=== PATIENT | female | born 1955 | race Caucasian/White ===

== ENCOUNTER 2017-02-28 13:34 | Inpatient (IN) | payer MEDICARE, MEDICAID ==
[~2017-02-28] VITALS: Ht 167.6 cm; Wt 97.6 kg
[~2017-02-28 13:34] MED LIST: FURO40TA4 PO; GABA-494 PO; LACT10SO3 PO; LIDO5DIS21 TOP; RIFA550T PO; SPIR25TA89 PO; TRAM50TA2 PO
[2017-02-28] MEDS ORDERED: LORazepam 2MG/ML-1ML VIAL ONE (14:01)
[2017-02-28] MEDS ORDERED: LORazepam 2MG/ML-1ML VIAL IV ONE (14:03)
[2017-02-28] MEDS ORDERED: SODIUM CHLORIDE 0.9% 500 ML IVB ONE (14:08)
[2017-02-28 14:18] LABS: Basophils # (auto) 0 uL; Basophils % (auto) 0.7 % (0.0-2.0); CONDITION Y; Eosinophils # (auto) 0.2 uL; Eosinophils % (auto) 3.6 % (0.0-7.0); Hematocrit 41.4 % (36.0-46.0); Hemoglobin 13.9 g/dL (12.2-16.2); Lymphocytes # (auto) 2.1 uL; Lymphocytes % (auto) 42.3 % (10.0-50.0); Mean Corpuscular Hemoglobin 32.8 pg (28.0-32.0); Mean Corpuscular Hgb Conc. 33.5 g/dL (32.0-36.0); Mean Platelet Volume 8.5 fL (7.4-10.4); Monocytes # (auto) 0.4 uL; Monocytes % (auto) 9.1 % (0.0-12.0); Neutrophils # (auto) 2.2 uL; Neutrophils % (auto) 44.3 % (37.0-80.0); Platelet Count (auto) 141 10^3/uL (140-450); Red Cell Distribution Width 16.8 % (11.6-16.0); White Blood Cell 4.9 10^3/uL (4.4-10.8)
[2017-02-28 14:32] LABS: INR 1.18 (0.9-1.15); Partial Thromboplastin Time 28.5 sec (22.64-33.71)
[2017-02-28 14:38] LABS: Prothrombin Time 12.9 sec (9.37-12.3)
[2017-02-28 14:39] LABS: Albumin 2.6 g/dL (3.4-5.0); Alkaline Phosphatase 165 U/L (45-117); Anion Gap 7 (5-15); BUN/Creatinine Ratio 21.5; Bilirubin, Total 1.3 mg/dL (0.2-1.0); Blood Urea Nitrogen 26 mg/dL (7-18); Calcium 8.8 mg/dL (8.5-10.1); Carbon Dioxide 24 mmol/L (21-32); Chloride 112 mmol/L (98-107); GFR African American 58 mL/min; GFR Non-African American 48 mL/min; Glucose 98 mg/dL (74-106); Lactic Acid w/Reflex 2.4 mmol/L (0.4-2.0); Sodium 143 mmol/L (136-145); Total Protein 6.5 g/dL (6.4-8.2)
[2017-02-28 14:42] LABS: Urine Bilirubin Negative (Negative); Urine Blood Negative /uL (Negative); Urine Color Yellow (Yellow); Urine Glucose Normal (Normal); Urine Ketone Negative (Negative); Urine Nitrite Negative (Negative); Urine RBC <1 /hpf (0 - 4); Urine Squamous Epithelial Cell FEW /hpf (<5); Urine Urobilinogen Normal (Negative); Urine pH 7.5 (5.0-8.0)
[2017-02-28 14:43] LABS: REFLEX LACTIC ACID YES OR NO YES
[2017-02-28 14:57] LABS: Aspartate Aminotransferase 66 U/L (15-37); Potassium 5.4 mmol/L (3.5-5.1)
[2017-02-28] MEDS ORDERED: LACTULOSE 20Gm/30ML SOLN PR ONE (17:45)
[2017-02-28] MEDS ORDERED: NITROGLYCERIN 0.4 MG SL TAB SL PRN (21:30)
[2017-02-28] MEDS ORDERED: ONDANSETRON HCL 4 MG/2 ML VIAL IV PRN (21:30)
[2017-02-28] MEDS ORDERED: ACETAMINOPHEN 325 MG TAB PO PRN (21:30)
[2017-02-28] MEDS ORDERED: DEXTROSE (50%) 50ML SYRG IV PRN (21:30)
[2017-02-28] MEDS ORDERED: MORPHINE SULF INJ 2 MG/ML SYRINGE 1ML IV PRN (21:30)
[2017-02-28] MEDS ORDERED: TEMAZEPAM 15 MG CAP PO PRN (21:30)
[2017-02-28] MEDS: SODIUM CHLORIDE 0.9% 1,000 ML IV SCH ×3 (21:40→23:21)
[2017-02-28 22:30] VITALS: BP 140/83
[2017-02-28 22:45] VITALS: BP 140/83
[2017-02-28] MEDS: FAMOTIDINE 20 MG TAB PO SCH (23:20)
[2017-03-01] MEDS: ACCU-CHEK COMFORT CURVE STRIP VI SCH ×4 (00:31→17:42)
[2017-03-01] MEDS: InsuLIN REG 1unit/0.01ml Soln (100units/ml) SC SCH ×4 (00:31→17:43)
[2017-03-01] MEDS: LACTULOSE 20Gm/30ML SOLN PO SCH ×3 (00:32→12:00)
[2017-03-01 04:40] VITALS: BP 146/74
[2017-03-01 05:41] LABS: Basophils # (auto) 0 uL; Basophils % (auto) 0.7 % (0.0-2.0); CONDITION Y; Eosinophils # (auto) 0.2 uL; Eosinophils % (auto) 6.3 % (0.0-7.0); Hematocrit 40.1 % (36.0-46.0); Hemoglobin 13.4 g/dL (12.2-16.2); Lymphocytes # (auto) 1.5 uL; Lymphocytes % (auto) 40.7 % (10.0-50.0); Mean Corpuscular Hemoglobin 32.9 pg (28.0-32.0); Mean Corpuscular Hgb Conc. 33.4 g/dL (32.0-36.0); Mean Corpuscular Volume 98.6 fL (80.0-100.0); Mean Platelet Volume 8.6 fL (7.4-10.4); Monocytes # (auto) 0.4 uL; Neutrophils # (auto) 1.6 uL; Neutrophils % (auto) 42.3 % (37.0-80.0); Platelet Count (auto) 134 10^3/uL (140-450); Red Cell Distribution Width 16.7 % (11.6-16.0); White Blood Cell 3.7 10^3/uL (4.4-10.8)
[2017-03-01 05:51] LABS: Albumin 2.4 g/dL (3.4-5.0); Calcium 8.5 mg/dL (8.5-10.1); Potassium 4.4 mmol/L (3.5-5.1)
[2017-03-01 06:06] LABS: Bilirubin, Total 1.4 mg/dL (0.2-1.0)
[2017-03-01 09:00] VITALS: BP 146/77
[2017-03-01] MEDS: RIFAXIMIN 550 MG TAB PO SCH ×2 (10:00→10:04)
[2017-03-01] MEDS: FAMOTIDINE 20 MG TAB PO SCH ×2 (10:00→10:03)
[2017-03-01] MEDS: SPIRONOLACTONE 25 MG TAB PO SCH ×2 (10:00→10:04)
[2017-03-01] MEDS: FUROSEMIDE 40 MG TAB PO SCH ×2 (10:00→10:04)
[2017-03-01 12:19] VITALS: BP 139/83
[2017-03-01] MEDS ORDERED: LACTULOSE 20Gm/30ML SOLN PR ONE (14:30)
[2017-03-01] MEDS: D5W/SOD CHL 0.45% 1,000 ML IV SCH (15:13)
[2017-03-01 17:02] VITALS: BP 156/79
[2017-03-01] MEDS: LACTULOSE 20Gm/30ML SOLN PR SCH (17:50)
[2017-03-01 22:00] VITALS: BP 162/80
[2017-03-02] MEDS: LACTULOSE 20Gm/30ML SOLN PR SCH ×2 (05:43)
[2017-03-02 05:49] VITALS: BP 164/82
[2017-03-02] MEDS: InsuLIN REG 1unit/0.01ml Soln (100units/ml) SC SCH ×4 (06:00→17:27)
[2017-03-02] MEDS: ACCU-CHEK COMFORT CURVE STRIP VI SCH ×5 (06:00→23:01)
[2017-03-02] MEDS: D5W/SOD CHL 0.45% 1,000 ML IV SCH (06:40)
[2017-03-02 09:00] VITALS: BP 157/85
[2017-03-02] MEDS ORDERED: PANTOPRAZOLE SODIUM 40 MG/10 ML VIAL IV SCH (10:00)
[2017-03-02] MEDS ORDERED: PROPRANOLOL HCL 20 MG TAB PO ONE (11:30)
[2017-03-02] MEDS ORDERED: traMADol HCL 50 MG TAB PO PRN (11:30)
[2017-03-02] MEDS ORDERED: RIFAXIMIN 550 MG TAB PO ONE (11:45)
[2017-03-02] MEDS: LACTULOSE 20Gm/30ML SOLN PO SCH ×2 (12:27→17:56)
[2017-03-02 12:45] LABS: Basophils # (auto) 0 uL; Basophils % (auto) 0.8 % (0.0-2.0); CONDITION Y; Eosinophils # (auto) 0.2 uL; Eosinophils % (auto) 4.7 % (0.0-7.0); Hematocrit 41.5 % (36.0-46.0); Hemoglobin 13.9 g/dL (12.2-16.2); Lymphocytes # (auto) 1.7 uL; Lymphocytes % (auto) 34.9 % (10.0-50.0); Mean Corpuscular Hemoglobin 33.2 pg (28.0-32.0); Mean Corpuscular Hgb Conc. 33.5 g/dL (32.0-36.0); Mean Corpuscular Volume 99.2 fL (80.0-100.0); Mean Platelet Volume 8.4 fL (7.4-10.4); Monocytes # (auto) 0.5 uL; Monocytes % (auto) 9.8 % (0.0-12.0); Neutrophils # (auto) 2.4 uL; Neutrophils % (auto) 49.8 % (37.0-80.0); Platelet Count (auto) 128 10^3/uL (140-450); Red Cell Distribution Width 16.1 % (11.6-16.0); White Blood Cell 4.8 10^3/uL (4.4-10.8)
[2017-03-02 13:00] VITALS: BP 171/87
[2017-03-02 13:15] LABS: Albumin 2.6 g/dL (3.4-5.0); Bilirubin, Total 1.8 mg/dL (0.2-1.0); Calcium 8.7 mg/dL (8.5-10.1); Potassium 4.4 mmol/L (3.5-5.1); Total Protein 6.4 g/dL (6.4-8.2)
[2017-03-02 17:00] VITALS: BP 154/71
[2017-03-02 20:00] VITALS: BP 158/70
[2017-03-02 22:00] VITALS: BP 150/70
[2017-03-02] MEDS ORDERED: PATIENTS OWN MEDICATION (Rifaximin 550 MG) PO SCH (22:00)
[2017-03-02] MEDS: PROPRANOLOL HCL 20 MG TAB PO SCH (22:56)
[2017-03-02] MEDS: RIFAXIMIN 550 MG TAB PO SCH (22:57)
[2017-03-03] VITALS (7 sets, daily range): BP systolic 112–146; BP diastolic 62–94
[2017-03-03] MEDS: LACTULOSE 20Gm/30ML SOLN PO SCH ×4 (00:18→18:14)
[2017-03-03] MEDS: ACCU-CHEK COMFORT CURVE STRIP VI SCH ×3 (05:34→18:14)
[2017-03-03] MEDS: InsuLIN REG 1unit/0.01ml Soln (100units/ml) SC SCH ×4 (05:34→18:00)
[2017-03-03] MEDS: PROPRANOLOL HCL 20 MG TAB PO SCH (10:00)
[2017-03-03] MEDS: RIFAXIMIN 550 MG TAB PO SCH (10:36)
[2017-03-03] MEDS ORDERED: PRO20T PO (11:21)
[2017-03-03] MEDS ORDERED: ENOXAPARIN SOD 40 MG/0.4 ML SYRINGE SC ONE (15:00)
[2017-03-04] MEDS ORDERED: ENOXAPARIN SOD 40 MG/0.4 ML SYRINGE SC SCH (10:00)
== END 2017-03-03 19:20 | disposition home or self-care (01) | DRG 441 ==
LOC: EDUNIT# 13:34 → ER 13:39 → TELE 13:40 → TELE-EAST 22:22
PROVIDERS: ADMIT Internal Medicine; ATTEND Internal Medicine
DX: K72.90 Hepatic failure, unspecified without coma (principal); E43 Unspecified severe protein-calorie malnutrition; Z68.41 Body mass index [BMI] 40.0-44.9, adult; K70.30 Alcoholic cirrhosis of liver without ascites; K43.9 Ventral hernia without obstruction or gangrene; E66.01 Morbid (severe) obesity due to excess calories; D69.6 Thrombocytopenia, unspecified; G47.00 Insomnia, unspecified; E11.22 Type 2 diabetes mellitus with diabetic chronic kidney disease; N18.3 Chronic kidney disease, stage 3 (moderate); Z79.899 Other long term (current) drug therapy; Z91.14 Patient's other noncompliance with medication regimen; Z68.34 Body mass index [BMI] 34.0-34.9, adult
CPT/HCPCS: 36415; 70450; 71010; 80053; 80307; 80320; 81001; 82140; 82962; 83605; 83735; 84484; 85025; 85610; 85730; 87040; 87081; 87086; 93005; 94761; 96361; 96374; 96375; C9113

== ENCOUNTER 2017-08-22 13:02 | Inpatient (IN) | payer MEDICARE, MEDICAID ==
[~2017-08-22] VITALS: Ht 167.6 cm; Wt 106.7 kg
[~2017-08-22 13:02] MED LIST changes: -GABA-494 PO; +GABA100C9 PO; +PRO20T PO
[2017-08-22 14:10] LABS: Basophils # (auto) 0 uL; Basophils % (auto) 0.8 % (0.0-2.0); Eosinophils # (auto) 0.1 uL; Eosinophils % (auto) 2.4 % (0.0-7.0); Hematocrit 45.4 % (36.0-46.0); Hemoglobin 15.1 g/dL (12.2-16.2); Lymphocytes # (auto) 1.9 uL; Lymphocytes % (auto) 44.1 % (10.0-50.0); Mean Corpuscular Hemoglobin 33.6 pg (28.0-32.0); Mean Corpuscular Hgb Conc. 33.2 g/dL (32.0-36.0); Mean Corpuscular Volume 101.2 fL (80.0-100.0); Monocytes # (auto) 0.5 uL; Monocytes % (auto) 12.1 % (0.0-12.0); Neutrophils # (auto) 1.8 uL; Neutrophils % (auto) 40.6 % (37.0-80.0); Nucleated Red Blood Cells % 0.2 %; Platelet Count (auto) 93 10^3/uL (140-450); Red Blood Cells 4.49 10^6/uL (4.0-5.20); Red Cell Distribution Width 14.9 % (11.8-14.3); White Blood Cell 4.4 10^3/uL (4.4-10.8)
[2017-08-22 14:21] LABS: Magnesium 2.5 mg/dL (1.6-2.6)
[2017-08-22 15:36] LABS: Albumin 2.8 g/dL (3.4-5.0); BUN/Creatinine Ratio 18.1; Bilirubin, Total 1.4 mg/dL (0.2-1.0); Calcium 8.8 mg/dL (8.5-10.1); Potassium 4.5 mmol/L (3.5-5.1); Total Protein 6.7 g/dL (6.4-8.2)
[2017-08-22] MEDS ORDERED: LACTULOSE 20Gm/30ML SOLN PO ONE (15:45)
[2017-08-22] MEDS ORDERED: DEXTROSE (50%) 50ML SYRG IV PRN (16:30)
[2017-08-22] MEDS ORDERED: traMADol HCL 50 MG TAB PO PRN (16:30)
[2017-08-22] MEDS ORDERED: MORPHINE SULFATE 10 MG/ML INJ 1ML SDV IV PRN ×2 (16:45)
[2017-08-22] MEDS ORDERED: NITROGLYCERIN 0.4 MG SL TAB SL PRN (16:45)
[2017-08-22] MEDS ORDERED: ONDANSETRON HCL 4 MG/2 ML VIAL IV PRN (16:45)
[2017-08-22] MEDS ORDERED: DOCUSATE SOD 100 MG CAP PO PRN (16:45)
[2017-08-22] MEDS ORDERED: ACETAMINOPHEN 325 MG TAB PO PRN (16:45)
[2017-08-22 16:53] LABS: INR 1.28 (0.9-1.15)
[2017-08-22] MEDS: InsuLIN REG 1unit/0.01ml Soln (100units/ml) SC SCH ×2 (17:00→22:00)
[2017-08-22] MEDS: SODIUM CHLORIDE 0.9% 1,000 ML IV SCH (17:01)
[2017-08-22] MEDS: ACCU-CHEK COMFORT CURVE STRIP VI SCH ×2 (17:05→22:17)
[2017-08-22] MEDS: LACTULOSE 20Gm/30ML SOLN PO SCH ×2 (17:13→22:20)
[2017-08-22] MEDS: Boost Glucose Control 8 Ounces PO SCH (18:22)
[2017-08-22] MEDS: RIFAXIMIN 550 MG TAB PO SCH (22:00)
[2017-08-22] MEDS: GABAPENTIN 100 MG CAP PO SCH (22:21)
[2017-08-22] MEDS: FAMOTIDINE 20 MG TAB PO SCH (22:21)
[2017-08-22] MEDS: PROPRANOLOL HCL 20 MG TAB PO SCH (22:21)
[2017-08-23] MEDS: LACTULOSE 20Gm/30ML SOLN PO SCH ×6 (02:03→22:02)
[2017-08-23] MEDS: HYDROcodone-ACET 5/325MG TAB PO PRN ×3 (02:04→22:00)
[2017-08-23 02:06] LABS: Urine Bacteria FEW /hpf (None Seen); Urine Blood Negative /uL (Negative); Urine Specific Gravity 1.016 (1.001-1.035); Urine WBC 37 /hpf (0 - 5); Urine WBC Clumps PRESENT /hpf (None Seen)
[2017-08-23] MEDS: GABAPENTIN 100 MG CAP PO SCH (06:24)
[2017-08-23] MEDS: ACCU-CHEK COMFORT CURVE STRIP VI SCH ×4 (08:09→22:02)
[2017-08-23] MEDS: InsuLIN REG 1unit/0.01ml Soln (100units/ml) SC SCH ×2 (08:09→11:30)
[2017-08-23] MEDS: Boost Glucose Control 8 Ounces PO SCH ×3 (09:00→18:00)
[2017-08-23 09:15] LABS: Basophils # (auto) 0.1 uL; Monocytes # (auto) 0.9 uL; Neutrophils # (auto) 1.8 uL
[2017-08-23 09:18] LABS: Basophils % (auto) 1.4 % (0.0-2.0); Eosinophils # (auto) 0.1 uL; Eosinophils % (auto) 2.6 % (0.0-7.0); Hematocrit 47.2 % (36.0-46.0); Hemoglobin 15.1 g/dL (12.2-16.2); Lymphocytes # (auto) 2.4 uL; Lymphocytes % (auto) 45.2 % (10.0-50.0); Mean Corpuscular Hemoglobin 33.6 pg (28.0-32.0); Mean Corpuscular Volume 104.9 fL (80.0-100.0); Monocytes % (auto) 17.2 % (0.0-12.0); Neutrophils % (auto) 33.6 % (37.0-80.0); Nucleated Red Blood Cells % 1.2 %; Platelet Count (auto) 77 10^3/uL (140-450); Red Cell Distribution Width 15.7 % (11.8-14.3); White Blood Cell 5.3 10^3/uL (4.4-10.8)
[2017-08-23] MEDS: SODIUM CHLORIDE 0.9% 1,000 ML IV SCH (09:41)
[2017-08-23] MEDS: PROPRANOLOL HCL 20 MG TAB PO SCH ×2 (10:00→22:01)
[2017-08-23] MEDS: RIFAXIMIN 550 MG TAB PO SCH ×2 (10:00→22:01)
[2017-08-23] MEDS ORDERED: LIDOCAINE 5% TOPICAL PATCH TOP SCH (10:00)
[2017-08-23 10:06] LABS: BUN/Creatinine Ratio 18.5; Potassium 4.2 mmol/L (3.5-5.1)
[2017-08-23 10:07] LABS: Albumin 2.5 g/dL (3.4-5.0); Bilirubin, Total 1.5 mg/dL (0.2-1.0); Calcium 9.3 mg/dL (8.5-10.1); Total Protein 6.4 g/dL (6.4-8.2)
[2017-08-23] MEDS: MULTIPLE VITAMIN TAB PO SCH (10:19)
[2017-08-23] MEDS: SPIRONOLACTONE 25 MG TAB PO SCH (10:19)
[2017-08-23] MEDS: FAMOTIDINE 20 MG TAB PO SCH ×2 (10:19→22:01)
[2017-08-23] MEDS: FUROSEMIDE 40 MG TAB PO SCH (10:19)
[2017-08-23 18:10] VITALS: BP 134/77
[2017-08-23 20:00] VITALS: BP 119/86
[2017-08-24] MEDS: LACTULOSE 20Gm/30ML SOLN PO SCH ×6 (02:58→22:24)
[2017-08-24] MEDS: ACCU-CHEK COMFORT CURVE STRIP VI SCH ×4 (06:10→22:26)
[2017-08-24 06:28] LABS: Albumin 2.6 g/dL (3.4-5.0); Bilirubin, Total 1.9 mg/dL (0.2-1.0); Calcium 8.6 mg/dL (8.5-10.1); Potassium 3.6 mmol/L (3.5-5.1); Total Protein 6.5 g/dL (6.4-8.2)
[2017-08-24] MEDS: Boost Glucose Control 8 Ounces PO SCH ×3 (08:00→17:40)
[2017-08-24 09:00] VITALS: BP 135/81
[2017-08-24 10:00] VITALS: BP 135/81
[2017-08-24] MEDS: MULTIPLE VITAMIN TAB PO SCH (10:32)
[2017-08-24] MEDS: SPIRONOLACTONE 25 MG TAB PO SCH (10:32)
[2017-08-24] MEDS: FUROSEMIDE 40 MG TAB PO SCH (10:32)
[2017-08-24] MEDS: FAMOTIDINE 20 MG TAB PO SCH ×2 (10:32→22:24)
[2017-08-24] MEDS: PROPRANOLOL HCL 20 MG TAB PO SCH ×2 (10:32→22:24)
[2017-08-24] MEDS: RIFAXIMIN 550 MG TAB PO SCH ×2 (10:36→22:26)
[2017-08-24 13:00] VITALS: BP 109/65
[2017-08-24 17:00] VITALS: BP 105/74
[2017-08-24 22:00] VITALS: BP 106/55
[2017-08-25] MEDS: LACTULOSE 20Gm/30ML SOLN PO SCH ×4 (03:00→14:00)
[2017-08-25 05:00] VITALS: BP 111/65
[2017-08-25] MEDS: ACCU-CHEK COMFORT CURVE STRIP VI SCH ×2 (06:13→11:30)
[2017-08-25 08:33] LABS: Basophils # (auto) 0.1 uL; Eosinophils # (auto) 0.1 uL; Eosinophils % (auto) 1.5 % (0.0-7.0); Hematocrit 46.7 % (36.0-46.0); Hemoglobin 15.6 g/dL (12.2-16.2); Lymphocytes # (auto) 2.5 uL; Lymphocytes % (auto) 34.9 % (10.0-50.0); Mean Corpuscular Hemoglobin 33.7 pg (28.0-32.0); Mean Corpuscular Hgb Conc. 33.4 g/dL (32.0-36.0); Mean Corpuscular Volume 100.9 fL (80.0-100.0); Monocytes # (auto) 1.1 uL; Neutrophils # (auto) 3.5 uL; Neutrophils % (auto) 47.6 % (37.0-80.0); Nucleated Red Blood Cells % 0.2 %; Platelet Count (auto) 92 10^3/uL (140-450); Red Blood Cells 4.63 10^6/uL (4.0-5.20); Red Cell Distribution Width 14.9 % (11.8-14.3); White Blood Cell 7.3 10^3/uL (4.4-10.8)
[2017-08-25 08:48] LABS: Calcium 8.6 mg/dL (8.5-10.1); Potassium 4.2 mmol/L (3.5-5.1)
[2017-08-25 09:00] VITALS: BP 112/73
[2017-08-25] MEDS: FUROSEMIDE 40 MG TAB PO SCH (10:00)
[2017-08-25] MEDS ORDERED: CIPR-173 PO (11:59)
[2017-08-25] MEDS: Boost Glucose Control 8 Ounces PO SCH ×2 (12:00→12:14)
[2017-08-25] MEDS: FAMOTIDINE 20 MG TAB PO SCH (12:01)
[2017-08-25] MEDS: MULTIPLE VITAMIN TAB PO SCH (12:01)
[2017-08-25] MEDS: SPIRONOLACTONE 25 MG TAB PO SCH (12:03)
[2017-08-25] MEDS: RIFAXIMIN 550 MG TAB PO SCH (12:04)
[2017-08-25] MEDS: PROPRANOLOL HCL 20 MG TAB PO SCH (12:15)
[2017-08-25 13:00] VITALS: BP 129/60
[2017-08-25 13:36] VITALS: BP 129/60
[2017-08-25 16:55] VITALS: BP 115/79
== END 2017-08-25 18:45 | disposition home or self-care (01) | DRG 441 ==
LOC: EDBD → ER 13:02 → TELE 13:03 → TELE-EAST 08-23 19:00 → EAST 08-24 08:38
PROVIDERS: ADMIT Internal Medicine; ATTEND Internal Medicine
DX: K72.90 Hepatic failure, unspecified without coma (principal); N17.0 Acute kidney failure with tubular necrosis; E43 Unspecified severe protein-calorie malnutrition; D69.6 Thrombocytopenia, unspecified; E11.21 Type 2 diabetes mellitus with diabetic nephropathy; K76.6 Portal hypertension; E11.22 Type 2 diabetes mellitus with diabetic chronic kidney disease; E66.01 Morbid (severe) obesity due to excess calories; N39.0 Urinary tract infection, site not specified; N17.9 Acute kidney failure, unspecified; K70.30 Alcoholic cirrhosis of liver without ascites; I11.9 Hypertensive heart disease without heart failure; K43.9 Ventral hernia without obstruction or gangrene; K57.30 Diverticulosis of large intestine without perforation or abscess without bleeding; R00.1 Bradycardia, unspecified; N18.3 Chronic kidney disease, stage 3 (moderate); B96.89 Other specified bacterial agents as the cause of diseases classified elsewhere; K80.20 Calculus of gallbladder without cholecystitis without obstruction; Z68.38 Body mass index [BMI] 38.0-38.9, adult
CPT/HCPCS: 36415; 51702; 71045; 74176; 80048; 80053; 81001; 82140; 82150; 82962; 83036; 83690; 83735; 85025; 85610; 87086; 87088; 87186; 93005; 94761; 96360; 97163

== ENCOUNTER 2017-09-14 16:39 | Inpatient (IN) | payer MEDICARE, MEDICAID ==
[~2017-09-14] VITALS: Ht 168.9 cm; Wt 108.0 kg
[~2017-09-14 16:39] MED LIST changes: +CIPR-173 PO
[2017-09-14 21:04] LABS: Eosinophils # (auto) 0.1 uL; Eosinophils % (auto) 2.6 % (0.0-7.0); Lymphocytes % (auto) 37.8 % (10.0-50.0); Monocytes # (auto) 0.4 uL
[2017-09-14 21:06] LABS: Basophils # (auto) 0.1 uL; Basophils % (auto) 1.2 % (0.0-2.0); Hematocrit 46.2 % (36.0-46.0); Hemoglobin 15.3 g/dL (12.2-16.2); Lymphocytes # (auto) 1.5 uL; Mean Corpuscular Hemoglobin 33.7 pg (28.0-32.0); Mean Corpuscular Hgb Conc. 33.1 g/dL (32.0-36.0); Neutrophils % (auto) 49.4 % (37.0-80.0); Nucleated Red Blood Cells % 0.3 %; Red Blood Cells 4.53 10^6/uL (4.0-5.20); Red Cell Distribution Width 15.5 % (11.8-14.3); White Blood Cell 4.1 10^3/uL (4.4-10.8)
[2017-09-14 21:09] LABS: Platelet Count (auto) 83 10^3/uL (140-450)
[2017-09-14 21:19] LABS: Alanine Aminotransferase 40 U/L (13-56); Albumin 2.9 g/dL (3.4-5.0); Anion Gap 9 (5-15); Aspartate Aminotransferase 53 U/L (15-37); BUN/Creatinine Ratio 15.2; Blood Alcohol < 3.0 mg/dL (0-5); Blood Urea Nitrogen 22 mg/dL (7-18); Calcium 9.1 mg/dL (8.5-10.1); Carbon Dioxide 21 mmol/L (21-32); Chloride 117 mmol/L (98-107); GFR African American 47 mL/min; GFR Non-African American 39 mL/min; Glucose 100 mg/dL (74-106); Magnesium 2.2 mg/dL (1.6-2.6); Sodium 147 mmol/L (136-145)
[2017-09-14 21:24] LABS: Alkaline Phosphatase 203 U/L (45-117); Bilirubin, Total 1.8 mg/dL (0.2-1.0); Total Protein 7.3 g/dL (6.4-8.2)
[2017-09-14] MEDS ORDERED: ONDANSETRON HCL 4 MG/2 ML VIAL ONE (22:22)
[2017-09-14] MEDS ORDERED: MORPHINE SULFATE 4 MG/ML SYR/VIAL ONE (22:22)
[2017-09-15] MEDS ORDERED: HYDROcodone-ACET 5/325MG TAB PO PRN (01:00)
[2017-09-15] MEDS ORDERED: ACETAMINOPHEN 500 MG TAB PO PRN (01:00)
[2017-09-15] MEDS ORDERED: ONDANSETRON HCL 4 MG/2 ML VIAL IV PRN (01:00)
[2017-09-15] MEDS: GABAPENTIN 100 MG CAP PO SCH ×2 (06:00→13:21)
[2017-09-15] MEDS: LACTULOSE 20Gm/30ML SOLN PO SCH ×3 (06:00→18:00)
[2017-09-15 06:31] LABS: Basophils # (auto) 0.1 uL; Eosinophils # (auto) 0.2 uL; Monocytes # (auto) 0.5 uL; Neutrophils # (auto) 1.7 uL; Red Blood Cells 3.93 10^6/uL (4.0-5.20)
[2017-09-15 06:32] LABS: Basophils % (auto) 1.4 % (0.0-2.0); Eosinophils % (auto) 3.8 % (0.0-7.0); Hemoglobin 13.3 g/dL (12.2-16.2); Lymphocytes % (auto) 45.5 % (10.0-50.0); Mean Corpuscular Hemoglobin 33.8 pg (28.0-32.0); Mean Corpuscular Hgb Conc. 33.1 g/dL (32.0-36.0); Monocytes % (auto) 10.9 % (0.0-12.0); Neutrophils % (auto) 38.4 % (37.0-80.0); Nucleated Red Blood Cells % 0.2 %; Platelet Count (auto) 70 10^3/uL (140-450); Red Cell Distribution Width 15.7 % (11.8-14.3); White Blood Cell 4.3 10^3/uL (4.4-10.8)
[2017-09-15 06:55] LABS: BUN/Creatinine Ratio 19.6; Potassium 3.8 mmol/L (3.5-5.1)
[2017-09-15] MEDS ORDERED: SOD CHL 0.45% 1,000 ML IV ONE (13:15)
[2017-09-15 13:29] LABS: Urine Bacteria NONE SEEN /hpf (None Seen); Urine Blood Negative /uL (Negative); Urine Mucus FEW (None Seen); Urine Specific Gravity 1.019 (1.001-1.035); Urine WBC 21 /hpf (0 - 5)
[2017-09-15 13:53] LABS: Amphetamine Screen, Urine NEGATIVE (NEGATIVE); Barbiturate Scree,Urine NEGATIVE (NEGATIVE); Benzodiazephine Screen, Urine NEGATIVE (NEGATIVE); Cannabinoid Screen, Urine NEGATIVE (NEGATIVE); Opiate Scree,Urine NEGATIVE (NEGATIVE); Phencyclidine Screen, Urine NEGATIVE (NEGATIVE)
[2017-09-15 14:18] LABS: Cocaine Screen, Urine NEGATIVE (NEGATIVE)
[2017-09-15 17:21] VITALS: BP 136/84
[2017-09-15 17:33] VITALS: BP 139/83
[2017-09-15 17:38] VITALS: BP 136/84
== END 2017-09-15 21:15 | disposition home health service (06) | DRG 441 ==
LOC: EDUNIT# 16:39 → EDBD 16:45 → ER 16:45 → OVERFLOW 16:46 → EAST 09-15 14:35 → TELE-EAST 09-15 15:26
PROVIDERS: ADMIT Nurse Practitioner Family; ATTEND Internal Medicine
DX: K72.90 Hepatic failure, unspecified without coma (principal); E43 Unspecified severe protein-calorie malnutrition; N17.0 Acute kidney failure with tubular necrosis; E87.0 Hyperosmolality and hypernatremia; D69.6 Thrombocytopenia, unspecified; I13.0 Hypertensive heart and chronic kidney disease with heart failure and stage 1 through stage 4 chronic kidney disease, or unspecified chronic kidney disease; E66.01 Morbid (severe) obesity due to excess calories; I50.9 Heart failure, unspecified; K76.6 Portal hypertension; J98.11 Atelectasis; K70.30 Alcoholic cirrhosis of liver without ascites; K43.9 Ventral hernia without obstruction or gangrene; N18.3 Chronic kidney disease, stage 3 (moderate); F32.9 Major depressive disorder, single episode, unspecified; M19.90 Unspecified osteoarthritis, unspecified site; Z68.37 Body mass index [BMI] 37.0-37.9, adult; Z79.899 Other long term (current) drug therapy
CPT/HCPCS: 36415; 71045; 80048; 80053; 80307; 80320; 81001; 82140; 83605; 83735; 84484; 85025; 87040; 87077; 87081; 87186; 93005; 94761; J2405

== ENCOUNTER 2017-10-04 19:12 | Inpatient (IN) | payer MEDICARE, MEDICAID ==
[~2017-10-04] VITALS: Ht 170.2 cm; Wt 111.3 kg
[2017-10-04] MEDS ORDERED: SODIUM CHLORIDE 0.9% 3,000 ML IV ONE (19:45)
[2017-10-04 20:21] LABS: Basophils # (auto) 0.1 uL; Basophils % (auto) 1.2 % (0.0-2.0); Eosinophils # (auto) 0.1 uL; Hemoglobin 14.3 g/dL (12.2-16.2); Monocytes # (auto) 0.5 uL; Nucleated Red Blood Cells % 0.2 %; White Blood Cell 4.5 10^3/uL (4.4-10.8)
[2017-10-04 20:31] LABS: Alanine Aminotransferase 37 U/L (13-56); Alkaline Phosphatase 189 U/L (45-117); Anion Gap 9 (5-15); Aspartate Aminotransferase 53 U/L (15-37); BUN/Creatinine Ratio 18.1; Bilirubin, Total 1.4 mg/dL (0.2-1.0); Blood Alcohol < 3.0 mg/dL (0-5); Blood Urea Nitrogen 23 mg/dL (7-18); Calcium 9.1 mg/dL (8.5-10.1); Carbon Dioxide 22 mmol/L (21-32); Chloride 111 mmol/L (98-107); GFR African American 55 mL/min; GFR Non-African American 45 mL/min; Glucose 100 mg/dL (74-106); Potassium 4.5 mmol/L (3.5-5.1); Sodium 142 mmol/L (136-145); Total Protein 7.3 g/dL (6.4-8.2)
[2017-10-04 20:33] LABS: Eosinophils % (auto) 2.8 % (0.0-7.0); Hematocrit 44.2 % (36.0-46.0); Lymphocytes # (auto) 1.9 uL; Lymphocytes % (auto) 41.2 % (10.0-50.0); Mean Corpuscular Hemoglobin 33.4 pg (28.0-32.0); Mean Corpuscular Hgb Conc. 32.3 g/dL (32.0-36.0); Mean Corpuscular Volume 103.5 fL (80.0-100.0); Monocytes % (auto) 10.6 % (0.0-12.0); Neutrophils % (auto) 44.2 % (37.0-80.0); Platelet Count (auto) 98 10^3/uL (140-450); Red Blood Cells 4.27 10^6/uL (4.0-5.20); Red Cell Distribution Width 16.5 % (11.8-14.3)
[2017-10-04 22:59] LABS: Urine Bacteria NONE SEEN /hpf (None Seen); Urine Blood Negative /uL (Negative); Urine Specific Gravity 1.009 (1.001-1.035); Urine WBC 1 /hpf (0 - 5)
[2017-10-04 23:05] LABS: Alcohol, Urine < 3.0 mg/dL (0-5); Amphetamine Screen, Urine NEGATIVE (NEGATIVE); Barbiturate Scree,Urine NEGATIVE (NEGATIVE); Benzodiazephine Screen, Urine NEGATIVE (NEGATIVE); Cannabinoid Screen, Urine NEGATIVE (NEGATIVE); Cocaine Screen, Urine NEGATIVE (NEGATIVE); Opiate Scree,Urine NEGATIVE (NEGATIVE); Phencyclidine Screen, Urine NEGATIVE (NEGATIVE)
[2017-10-05] VITALS (7 sets, daily range): BP systolic 105–125; BP diastolic 59–71
[2017-10-05] MEDS ORDERED: IBUPROFEN 600 MG TAB PO PRN (01:30)
[2017-10-05] MEDS ORDERED: LACTULOSE 20Gm/30ML SOLN PO ONE (01:30)
[2017-10-05] MEDS: GABAPENTIN 100 MG CAP PO SCH ×3 (05:55→21:34)
[2017-10-05] MEDS: traMADol HCL 50 MG TAB PO PRN ×3 (06:50→23:52)
[2017-10-05 06:52] LABS: Eosinophils # (auto) 0.1 uL; Monocytes # (auto) 0.5 uL; Nucleated Red Blood Cells % 0.3 %; Platelet Count (auto) 88 10^3/uL (140-450)
[2017-10-05 06:56] LABS: Basophils # (auto) 0 uL; Eosinophils % (auto) 3.5 % (0.0-7.0); Hematocrit 38.8 % (36.0-46.0); Hemoglobin 12.9 g/dL (12.2-16.2); Lymphocytes # (auto) 1.9 uL; Lymphocytes % (auto) 50.6 % (10.0-50.0); Mean Corpuscular Hemoglobin 33.7 pg (28.0-32.0); Mean Corpuscular Hgb Conc. 33.2 g/dL (32.0-36.0); Mean Corpuscular Volume 101.5 fL (80.0-100.0); Monocytes % (auto) 12.7 % (0.0-12.0); Neutrophils # (auto) 1.2 uL; Neutrophils % (auto) 32.2 % (37.0-80.0); Red Blood Cells 3.82 10^6/uL (4.0-5.20); Red Cell Distribution Width 15.9 % (11.8-14.3); White Blood Cell 3.9 10^3/uL (4.4-10.8)
[2017-10-05 07:08] LABS: BUN/Creatinine Ratio 21.5; Calcium 8.6 mg/dL (8.5-10.1); Potassium 4.1 mmol/L (3.5-5.1)
[2017-10-05] MEDS: LACTULOSE 20Gm/30ML SOLN PO SCH ×4 (08:08→23:52)
[2017-10-05] MEDS: SPIRONOLACTONE 25 MG TAB PO SCH (08:08)
[2017-10-05] MEDS: FUROSEMIDE 20 MG TAB PO SCH (08:09)
[2017-10-05] MEDS ORDERED: LACTULOSE 20Gm/30ML SOLN PO STA (13:01)
[2017-10-06 05:00] VITALS: BP 110/65
[2017-10-06] MEDS: GABAPENTIN 100 MG CAP PO SCH ×2 (05:44→16:12)
[2017-10-06] MEDS: LACTULOSE 20Gm/30ML SOLN PO SCH ×3 (05:45→17:55)
[2017-10-06 08:20] VITALS: BP 117/62
[2017-10-06] MEDS: SPIRONOLACTONE 25 MG TAB PO SCH (10:04)
[2017-10-06] MEDS: FUROSEMIDE 20 MG TAB PO SCH (10:05)
[2017-10-06 12:01] VITALS: BP 116/62
[2017-10-06] MEDS: traMADol HCL 50 MG TAB PO PRN (16:59)
[2017-10-06 17:01] VITALS: BP 110/68
== END 2017-10-06 18:00 | disposition home or self-care (01) | DRG 441 ==
LOC: EDBD 19:12 → ER 19:13 → OVERFLOW 19:14 → CENTRAL 10-05 03:40
PROVIDERS: ADMIT Nurse Practitioner Family; ATTEND Family Medicine
DX: K72.90 Hepatic failure, unspecified without coma (principal); K76.7 Hepatorenal syndrome; I13.0 Hypertensive heart and chronic kidney disease with heart failure and stage 1 through stage 4 chronic kidney disease, or unspecified chronic kidney disease; I50.9 Heart failure, unspecified; F32.9 Major depressive disorder, single episode, unspecified; M19.90 Unspecified osteoarthritis, unspecified site; K74.60 Unspecified cirrhosis of liver; N18.3 Chronic kidney disease, stage 3 (moderate); Z82.3 Family history of stroke; Z98.84 Bariatric surgery status; Z79.899 Other long term (current) drug therapy
CPT/HCPCS: 36415; 70450; 71045; 80048; 80053; 80307; 80320; 81001; 82140; 84484; 85025; 93005; 94761; 96360

== ENCOUNTER 2017-10-10 11:42 | Inpatient (IN) | payer MEDICARE, MEDICAID ==
[~2017-10-10] VITALS: Ht 165.1 cm; Wt 108.6 kg
[2017-10-10] MEDS ORDERED: SODIUM CHLORIDE 0.9% 1,000 ML IV ONE ×3 (12:59→14:48)
[2017-10-10] MEDS ORDERED: LORazepam 2MG/ML-1ML VIAL IV ONE (13:00)
[2017-10-10 13:08] LABS: Basophils # (auto) 0 uL; Basophils % (auto) 0.7 % (0.0-2.0); Eosinophils # (auto) 0.1 uL; Hemoglobin 13.5 g/dL (12.2-16.2); Lymphocytes # (auto) 1.9 uL; Lymphocytes % (auto) 35.9 % (10.0-50.0); Monocytes # (auto) 0.8 uL; Neutrophils # (auto) 2.4 uL; Nucleated Red Blood Cells % 0.1 %; Platelet Count (auto) 81 10^3/uL (140-450); White Blood Cell 5.3 10^3/uL (4.4-10.8)
[2017-10-10 13:10] LABS: Eosinophils % (auto) 2.7 % (0.0-7.0); Hematocrit 41.2 % (36.0-46.0); Mean Corpuscular Hemoglobin 33.4 pg (28.0-32.0); Mean Corpuscular Hgb Conc. 32.8 g/dL (32.0-36.0); Monocytes % (auto) 15.7 % (0.0-12.0); Red Blood Cells 4.04 10^6/uL (4.0-5.20); Red Cell Distribution Width 16.6 % (11.8-14.3)
[2017-10-10 13:14] LABS: Mean Corpuscular Volume 101.9 fL (80.0-100.0)
[2017-10-10 13:33] LABS: Lactic Acid w/Reflex 2.4 mmol/L (0.4-2.0)
[2017-10-10 13:45] LABS: Alanine Aminotransferase 29 U/L (13-56); Albumin 2.7 g/dL (3.4-5.0); Anion Gap 12 (5-15); Aspartate Aminotransferase 42 U/L (15-37); BUN/Creatinine Ratio 21.2; Blood Urea Nitrogen 28 mg/dL (7-18); Calcium 8.4 mg/dL (8.5-10.1); Carbon Dioxide 22 mmol/L (21-32); Chloride 112 mmol/L (98-107); GFR African American 53 mL/min; GFR Non-African American 43 mL/min; Glucose 96 mg/dL (74-106); Potassium 4.2 mmol/L (3.5-5.1); Sodium 146 mmol/L (136-145)
[2017-10-10] MEDS ORDERED: LACTULOSE 20Gm/30ML SOLN PO ONE (13:45)
[2017-10-10 13:47] LABS: INR 1.28 (0.9-1.15); Partial Thromboplastin Time 29.7 sec (22.64-33.71)
[2017-10-10 13:50] LABS: Alkaline Phosphatase 145 U/L (45-117); Bilirubin, Total 1.6 mg/dL (0.2-1.0); Total Protein 6.1 g/dL (6.4-8.2)
[2017-10-10 14:00] LABS: Urine Bacteria NONE SEEN /hpf (None Seen); Urine Blood Negative /uL (Negative); Urine Specific Gravity 1.018 (1.001-1.035); Urine WBC 1 /hpf (0 - 5)
[2017-10-10 14:03] LABS: Alcohol, Urine < 3.0 mg/dL (0-5); Amphetamine Screen, Urine NEGATIVE (NEGATIVE); Barbiturate Scree,Urine NEGATIVE (NEGATIVE); Benzodiazephine Screen, Urine NEGATIVE (NEGATIVE); Cannabinoid Screen, Urine NEGATIVE (NEGATIVE); Cocaine Screen, Urine NEGATIVE (NEGATIVE); Opiate Scree,Urine NEGATIVE (NEGATIVE); Phencyclidine Screen, Urine NEGATIVE (NEGATIVE)
[2017-10-10] MEDS: SODIUM CHLORIDE 0.9% 1,000 ML IV SCH (16:00)
[2017-10-10] MEDS ORDERED: NITROGLYCERIN 0.4 MG SL TAB SL PRN (16:00)
[2017-10-10] MEDS ORDERED: ACETAMINOPHEN 325 MG TAB PO PRN (16:00)
[2017-10-10] MEDS ORDERED: FUROSEMIDE 40 MG TAB PO ONE (16:00)
[2017-10-10] MEDS ORDERED: MORPHINE SULFATE 4 MG/ML SYR/VIAL IV PRN ×2 (16:00)
[2017-10-10] MEDS ORDERED: cefTRIAXone 1GM/10ml IVPUSH 10 ML IV ONE (16:00)
[2017-10-10] MEDS ORDERED: DEXTROSE (50%) 50ML SYRG IV PRN (16:00)
[2017-10-10] MEDS ORDERED: SPIRONOLACTONE 25 MG TAB PO ONE (16:00)
[2017-10-10] MEDS ORDERED: DOCUSATE SOD 100 MG CAP PO PRN (16:00)
[2017-10-10] MEDS ORDERED: ONDANSETRON HCL 4 MG/2 ML VIAL IV PRN (16:00)
[2017-10-10] MEDS ORDERED: LIDOCAINE 5% TOPICAL PATCH TOP ONE (16:15)
[2017-10-10] MEDS: GABAPENTIN 100 MG CAP PO SCH ×2 (16:47→21:49)
[2017-10-10] MEDS: ACCU-CHEK COMFORT CURVE STRIP VI SCH ×2 (17:00→21:52)
[2017-10-10] MEDS: InsuLIN REG 1unit/0.01ml Soln (100units/ml) SC SCH ×2 (17:00→21:51)
[2017-10-10] MEDS: BOOST PLUS 8 ounce PO SCH (18:00)
[2017-10-10] MEDS: LACTULOSE 20Gm/30ML SOLN PO SCH (18:00)
[2017-10-10] MEDS: FAMOTIDINE 20 MG TAB PO SCH (21:49)
[2017-10-10] MEDS: RIFAXIMIN 550 MG TAB PO SCH (21:49)
[2017-10-10] MEDS: PROPRANOLOL HCL 20 MG TAB PO SCH (21:49)
[2017-10-11] MEDS: LACTULOSE 20Gm/30ML SOLN PO SCH ×4 (00:04→18:35)
[2017-10-11] MEDS ORDERED: LACTULOSE 20Gm/30ML SOLN ONE (06:01)
[2017-10-11] MEDS: GABAPENTIN 100 MG CAP PO SCH (06:15)
[2017-10-11] MEDS: InsuLIN REG 1unit/0.01ml Soln (100units/ml) SC SCH ×4 (06:33→22:00)
[2017-10-11] MEDS: ACCU-CHEK COMFORT CURVE STRIP VI SCH ×4 (06:33→22:00)
[2017-10-11 07:13] LABS: Hemoglobin 12.8 g/dL (12.2-16.2); Lymphocytes # (auto) 1.7 uL; Lymphocytes % (auto) 38.1 % (10.0-50.0); Mean Corpuscular Hemoglobin 33.7 pg (28.0-32.0); Mean Corpuscular Hgb Conc. 33.1 g/dL (32.0-36.0); Nucleated Red Blood Cells % 0.1 %; White Blood Cell 4.4 10^3/uL (4.4-10.8)
[2017-10-11 07:16] LABS: Basophils # (auto) 0 uL; Basophils % (auto) 0.9 % (0.0-2.0); Eosinophils # (auto) 0.2 uL; Eosinophils % (auto) 3.7 % (0.0-7.0); Monocytes # (auto) 0.4 uL; Monocytes % (auto) 10.3 % (0.0-12.0)
[2017-10-11 07:17] LABS: Hematocrit 38.6 % (36.0-46.0); Mean Corpuscular Volume 101.8 fL (80.0-100.0); Platelet Count (auto) 74 10^3/uL (140-450); Red Cell Distribution Width 15.9 % (11.8-14.3)
[2017-10-11 07:32] LABS: Albumin 2.3 g/dL (3.4-5.0); BUN/Creatinine Ratio 20.6; Bilirubin, Total 1.8 mg/dL (0.2-1.0); Calcium 8.4 mg/dL (8.5-10.1); Potassium 4.2 mmol/L (3.5-5.1); Total Protein 5.5 g/dL (6.4-8.2)
[2017-10-11] MEDS: BOOST PLUS 8 ounce PO SCH ×3 (08:37→18:47)
[2017-10-11] MEDS: SODIUM CHLORIDE 0.9% 1,000 ML IV SCH (08:50)
[2017-10-11] MEDS ORDERED: cefTRIAXone 1GM/10ml IVPUSH 10 ML IV SCH (09:00)
[2017-10-11] MEDS: FAMOTIDINE 20 MG TAB PO SCH ×2 (09:56→22:36)
[2017-10-11] MEDS: SPIRONOLACTONE 25 MG TAB PO SCH (09:56)
[2017-10-11] MEDS: RIFAXIMIN 550 MG TAB PO SCH ×2 (09:56→22:00)
[2017-10-11] MEDS: FUROSEMIDE 40 MG TAB PO SCH (09:56)
[2017-10-11] MEDS: MULTIPLE VITAMIN TAB PO SCH (09:56)
[2017-10-11] MEDS: PROPRANOLOL HCL 20 MG TAB PO SCH ×2 (09:58→22:36)
[2017-10-11] MEDS ORDERED: LIDOCAINE 5% TOPICAL PATCH TOP SCH (10:00)
[2017-10-11] MEDS: D5W 5% 1,000 ML IV SCH (12:25)
[2017-10-11 22:00] VITALS: BP 137/81
[2017-10-11] MEDS: traMADol HCL 50 MG TAB PO PRN (22:36)
[2017-10-12] MEDS: LACTULOSE 20Gm/30ML SOLN PO SCH ×5 (00:48→23:17)
[2017-10-12] MEDS: D5W 5% 1,000 ML IV SCH (01:20)
[2017-10-12 05:00] VITALS: BP 131/81
[2017-10-12 05:33] LABS: Albumin 2.4 g/dL (3.4-5.0); BUN/Creatinine Ratio 18.4; Calcium 8.6 mg/dL (8.5-10.1)
[2017-10-12 05:41] LABS: Bilirubin, Total 1.7 mg/dL (0.2-1.0); Total Protein 5.9 g/dL (6.4-8.2)
[2017-10-12] MEDS: ACCU-CHEK COMFORT CURVE STRIP VI SCH ×4 (06:24→21:33)
[2017-10-12] MEDS: InsuLIN REG 1unit/0.01ml Soln (100units/ml) SC SCH ×4 (06:24→21:33)
[2017-10-12 08:00] VITALS: BP 144/82
[2017-10-12] MEDS: BOOST PLUS 8 ounce PO SCH ×3 (08:00→18:00)
[2017-10-12] MEDS: PROPRANOLOL HCL 20 MG TAB PO SCH ×2 (10:27→21:32)
[2017-10-12] MEDS: SPIRONOLACTONE 25 MG TAB PO SCH (10:28)
[2017-10-12] MEDS: FAMOTIDINE 20 MG TAB PO SCH ×2 (10:28→21:32)
[2017-10-12] MEDS: MULTIPLE VITAMIN TAB PO SCH (10:28)
[2017-10-12] MEDS: FUROSEMIDE 40 MG TAB PO SCH (10:28)
[2017-10-12] MEDS: RIFAXIMIN 550 MG TAB PO SCH ×2 (10:36→21:32)
[2017-10-12 12:00] VITALS: BP 105/71
[2017-10-12 14:00] VITALS: BP 110/73
[2017-10-12 22:00] VITALS: BP 127/72
[2017-10-12] MEDS: traMADol HCL 50 MG TAB PO PRN (23:16)
[2017-10-13] VITALS: BP 130/80
[2017-10-13] MEDS: LACTULOSE 20Gm/30ML SOLN PO SCH ×3 (03:43→18:00)
[2017-10-13] MEDS: ACCU-CHEK COMFORT CURVE STRIP VI SCH ×4 (05:43→21:06)
[2017-10-13] MEDS: InsuLIN REG 1unit/0.01ml Soln (100units/ml) SC SCH ×4 (05:43→21:05)
[2017-10-13] MEDS: BOOST PLUS 8 ounce PO SCH ×2 (08:00→12:00)
[2017-10-13 09:00] VITALS: BP 157/94
[2017-10-13] MEDS: FUROSEMIDE 40 MG TAB PO SCH (10:00)
[2017-10-13] MEDS: SPIRONOLACTONE 25 MG TAB PO SCH (10:00)
[2017-10-13] MEDS: PROPRANOLOL HCL 20 MG TAB PO SCH ×2 (10:00→22:00)
[2017-10-13] MEDS: MULTIPLE VITAMIN TAB PO SCH (10:00)
[2017-10-13] MEDS: RIFAXIMIN 550 MG TAB PO SCH ×2 (10:00→22:00)
[2017-10-13] MEDS: FAMOTIDINE 20 MG TAB PO SCH ×2 (10:00→22:00)
[2017-10-13] MEDS ORDERED: HALOPERIDOL LACTATE 5 MG/ML INJ VIAL IM ONE (10:30)
[2017-10-13] MEDS: GABAPENTIN 100 MG CAP PO SCH ×2 (14:00→22:00)
[2017-10-13] MEDS ORDERED: LORazepam 2MG/ML-1ML VIAL IV PRN (16:30)
[2017-10-13 17:09] VITALS: BP 124/59
[2017-10-13] MEDS: Boost Glucose Control 8 Ounces PO SCH (18:00)
[2017-10-13] MEDS ORDERED: BOOST PLUS 8 ounce PO SCH (18:00)
[2017-10-13 20:00] VITALS: BP 145/80
[2017-10-13] MEDS: HALOPERIDOL LACTATE 5 MG/ML INJ VIAL IM PRN (20:39)
[2017-10-13 22:00] VITALS: BP 143/73
[2017-10-14] VITALS (9 sets, daily range): BP systolic 106–132; BP diastolic 59–80
[2017-10-14] MEDS: LACTULOSE 20Gm/30ML SOLN PO SCH ×2 (05:42)
[2017-10-14] MEDS: GABAPENTIN 100 MG CAP PO SCH ×3 (05:42→21:30)
[2017-10-14] MEDS: InsuLIN REG 1unit/0.01ml Soln (100units/ml) SC SCH ×4 (06:22→21:36)
[2017-10-14] MEDS: ACCU-CHEK COMFORT CURVE STRIP VI SCH ×4 (06:23→21:31)
[2017-10-14] MEDS: Boost Glucose Control 8 Ounces PO SCH ×2 (08:00→18:00)
[2017-10-14] MEDS: HALOPERIDOL LACTATE 5 MG/ML INJ VIAL IM PRN ×2 (08:15→16:18)
[2017-10-14 08:17] LABS: BUN/Creatinine Ratio 18.8; Calcium 8.7 mg/dL (8.5-10.1); Potassium 3.8 mmol/L (3.5-5.1)
[2017-10-14] MEDS: MULTIPLE VITAMIN TAB PO SCH (10:00)
[2017-10-14] MEDS: SPIRONOLACTONE 25 MG TAB PO SCH (10:00)
[2017-10-14] MEDS: FUROSEMIDE 40 MG TAB PO SCH (10:00)
[2017-10-14] MEDS: FAMOTIDINE 20 MG TAB PO SCH ×2 (10:00→21:29)
[2017-10-14] MEDS: PROPRANOLOL HCL 20 MG TAB PO SCH ×2 (10:00→21:30)
[2017-10-14] MEDS: RIFAXIMIN 550 MG TAB PO SCH ×2 (10:00→21:29)
[2017-10-14] MEDS: LACTULOSE 20Gm/30ML SOLN PR SCH ×3 (12:57→23:37)
[2017-10-15] MEDS: HALOPERIDOL LACTATE 5 MG/ML INJ VIAL IM PRN (01:23)
[2017-10-15 05:00] VITALS: BP 124/64
[2017-10-15] MEDS: GABAPENTIN 100 MG CAP PO SCH ×3 (05:51→21:31)
[2017-10-15] MEDS: LACTULOSE 20Gm/30ML SOLN PR SCH (06:01)
[2017-10-15] MEDS: ACCU-CHEK COMFORT CURVE STRIP VI SCH ×4 (06:02→21:36)
[2017-10-15] MEDS: InsuLIN REG 1unit/0.01ml Soln (100units/ml) SC SCH ×4 (06:21→21:36)
[2017-10-15] MEDS: Boost Glucose Control 8 Ounces PO SCH ×2 (08:00→18:09)
[2017-10-15] MEDS: SPIRONOLACTONE 25 MG TAB PO SCH (09:31)
[2017-10-15] MEDS: PROPRANOLOL HCL 20 MG TAB PO SCH ×2 (09:32→21:25)
[2017-10-15] MEDS: FUROSEMIDE 40 MG TAB PO SCH (09:32)
[2017-10-15] MEDS: MULTIPLE VITAMIN TAB PO SCH (09:32)
[2017-10-15] MEDS: FAMOTIDINE 20 MG TAB PO SCH ×2 (09:33→21:31)
[2017-10-15] MEDS: RIFAXIMIN 550 MG TAB PO SCH ×2 (09:36→21:30)
[2017-10-15] MEDS: LACTULOSE 20Gm/30ML SOLN PO SCH ×3 (12:00→23:28)
[2017-10-15 22:00] VITALS: BP 99/54
[2017-10-16] MEDS: LACTULOSE 20Gm/30ML SOLN PO SCH (05:29)
[2017-10-16] MEDS: GABAPENTIN 100 MG CAP PO SCH ×2 (05:29→14:19)
[2017-10-16] MEDS: InsuLIN REG 1unit/0.01ml Soln (100units/ml) SC SCH ×3 (05:33→17:00)
[2017-10-16] MEDS: ACCU-CHEK COMFORT CURVE STRIP VI SCH ×3 (05:33→17:00)
[2017-10-16 06:27] VITALS: BP 92/58
[2017-10-16 07:14] LABS: Calcium 8.1 mg/dL (8.5-10.1); Potassium 3.2 mmol/L (3.5-5.1)
[2017-10-16] MEDS ORDERED: SODIUM CHLORIDE 0.9% 1,000 ML IV ONE (08:30)
[2017-10-16] MEDS ORDERED: LACTULOSE 20Gm/30ML SOLN PO SCH (10:00)
[2017-10-16] MEDS: PROPRANOLOL HCL 20 MG TAB PO SCH (10:00)
[2017-10-16 10:43] VITALS: BP 101/60
[2017-10-16] MEDS: FAMOTIDINE 20 MG TAB PO SCH (11:30)
[2017-10-16] MEDS: RIFAXIMIN 550 MG TAB PO SCH (11:31)
[2017-10-16] MEDS: MULTIPLE VITAMIN TAB PO SCH (11:31)
[2017-10-16] MEDS: Boost Glucose Control 8 Ounces PO SCH (11:32)
== END 2017-10-16 14:40 | disposition home or self-care (01) | DRG 441 ==
LOC: EDBD 11:42 → ER 11:42 → TELE 11:43 → WEST WING 10-11 21:20 → TELE-WESTW 10-11 21:43 → WEST WING 10-11 23:17
PROVIDERS: ADMIT Internal Medicine; ATTEND Internal Medicine
DX: K72.90 Hepatic failure, unspecified without coma (principal); N17.0 Acute kidney failure with tubular necrosis; E43 Unspecified severe protein-calorie malnutrition; G93.41 Metabolic encephalopathy; D68.9 Coagulation defect, unspecified; D69.6 Thrombocytopenia, unspecified; E11.21 Type 2 diabetes mellitus with diabetic nephropathy; I13.0 Hypertensive heart and chronic kidney disease with heart failure and stage 1 through stage 4 chronic kidney disease, or unspecified chronic kidney disease; I50.32 Chronic diastolic (congestive) heart failure; E87.1 Hypo-osmolality and hyponatremia; E87.0 Hyperosmolality and hypernatremia; K76.6 Portal hypertension; E11.22 Type 2 diabetes mellitus with diabetic chronic kidney disease; N18.3 Chronic kidney disease, stage 3 (moderate); E66.01 Morbid (severe) obesity due to excess calories; F22 Delusional disorders; M19.90 Unspecified osteoarthritis, unspecified site; K80.20 Calculus of gallbladder without cholecystitis without obstruction; F32.9 Major depressive disorder, single episode, unspecified; K43.9 Ventral hernia without obstruction or gangrene; K70.30 Alcoholic cirrhosis of liver without ascites; Z78.1 Physical restraint status; Z79.899 Other long term (current) drug therapy; Z68.39 Body mass index [BMI] 39.0-39.9, adult
CPT/HCPCS: 36415; 51702; 70450; 71045; 80048; 80053; 80307; 81001; 82140; 82962; 83036; 83605; 83880; 84484; 85025; 85610; 85730; 87040; 87081; 87086; 93005; 96361; 96374; 96375; A4565; J7042

== ENCOUNTER 2017-10-19 15:35 | Inpatient (IN) | payer MEDICARE, MEDICAID ==
[~2017-10-19] VITALS: Ht 170.2 cm; Wt 105.0 kg
[~2017-10-19 15:35] MED LIST changes: -CIPR-173 PO
[2017-10-19 17:47] LABS: Hemoglobin 13.9 g/dL (12.2-16.2); White Blood Cell 4.6 10^3/uL (4.4-10.8)
[2017-10-19 17:48] LABS: Basophils # (auto) 0.1 uL; Basophils % (auto) 1.6 % (0.0-2.0); Eosinophils # (auto) 0.2 uL; Eosinophils % (auto) 3.5 % (0.0-7.0); Lymphocytes # (auto) 1.9 uL; Lymphocytes % (auto) 40.7 % (10.0-50.0); Mean Corpuscular Hemoglobin 33.8 pg (28.0-32.0); Mean Corpuscular Volume 102.6 fL (80.0-100.0); Monocytes # (auto) 0.6 uL; Neutrophils # (auto) 1.9 uL; Neutrophils % (auto) 41.2 % (37.0-80.0); Nucleated Red Blood Cells % 0.2 %; Platelet Count (auto) 101 10^3/uL (140-450); Red Blood Cells 4.09 10^6/uL (4.0-5.20); Red Cell Distribution Width 16.2 % (11.8-14.3)
[2017-10-19 18:07] LABS: Alanine Aminotransferase 27 U/L (13-56); Albumin 2.7 g/dL (3.4-5.0); Alkaline Phosphatase 133 U/L (45-117); Anion Gap 8 (5-15); Aspartate Aminotransferase 42 U/L (15-37); BUN/Creatinine Ratio 16.1; Bilirubin, Total 1.5 mg/dL (0.2-1.0); Blood Alcohol < 3.0 mg/dL (0-5); Blood Urea Nitrogen 18 mg/dL (7-18); Calcium 8.5 mg/dL (8.5-10.1); Carbon Dioxide 24 mmol/L (21-32); Chloride 111 mmol/L (98-107); GFR African American 64 mL/min; GFR Non-African American 53 mL/min; Glucose 100 mg/dL (74-106); INR 1.26 (0.9-1.15); Magnesium 2.5 mg/dL (1.6-2.6); Partial Thromboplastin Time 30.1 sec (22.64-33.71); Potassium 4.3 mmol/L (3.5-5.1); Prothrombin Time 13.8 sec (9.37-12.3); Sodium 143 mmol/L (136-145); Total Protein 6.4 g/dL (6.4-8.2)
[2017-10-19] MEDS ORDERED: LORazepam 2MG/ML-1ML VIAL IV ONE (21:45)
[2017-10-19] MEDS ORDERED: TEMAZEPAM 15 MG CAP PO PRN (22:00)
[2017-10-19] MEDS ORDERED: ONDANSETRON HCL 4 MG/2 ML VIAL IV PRN (22:00)
[2017-10-19] MEDS: GABAPENTIN 100 MG CAP PO SCH (22:34)
[2017-10-19 22:40] LABS: Urine Bacteria NONE SEEN /hpf (None Seen); Urine Blood Negative /uL (Negative); Urine Specific Gravity 1.012 (1.001-1.035); Urine WBC 1 /hpf (0 - 5)
[2017-10-19 22:56] LABS: Amphetamine Screen, Urine NEGATIVE (NEGATIVE); Barbiturate Scree,Urine NEGATIVE (NEGATIVE); Benzodiazephine Screen, Urine NEGATIVE (NEGATIVE); Cannabinoid Screen, Urine NEGATIVE (NEGATIVE); Cocaine Screen, Urine NEGATIVE (NEGATIVE); Opiate Scree,Urine NEGATIVE (NEGATIVE); Phencyclidine Screen, Urine NEGATIVE (NEGATIVE)
[2017-10-19 23:10] VITALS: BP 140/75
[2017-10-19] MEDS: LACTULOSE 20Gm/30ML SOLN PO SCH (23:40)
[2017-10-20] VITALS (8 sets, daily range): BP systolic 111–159; BP diastolic 59–83
[2017-10-20] MEDS ORDERED: AMIT10TA6 PO (00:47)
[2017-10-20 05:30] LABS: Basophils # (auto) 0.1 uL; Eosinophils # (auto) 0.2 uL; Monocytes # (auto) 0.6 uL; Neutrophils # (auto) 1.8 uL; Nucleated Red Blood Cells % 0.1 %
[2017-10-20 05:33] LABS: Basophils % (auto) 1.2 % (0.0-2.0); Eosinophils % (auto) 3.4 % (0.0-7.0); Hematocrit 39.2 % (36.0-46.0); Lymphocytes # (auto) 2.7 uL; Lymphocytes % (auto) 50.7 % (10.0-50.0); Mean Corpuscular Hemoglobin 33.9 pg (28.0-32.0); Mean Corpuscular Hgb Conc. 33.2 g/dL (32.0-36.0); Mean Corpuscular Volume 102.1 fL (80.0-100.0); Monocytes % (auto) 11.4 % (0.0-12.0); Neutrophils % (auto) 33.3 % (37.0-80.0); Platelet Count (auto) 91 10^3/uL (140-450); Red Blood Cells 3.85 10^6/uL (4.0-5.20); Red Cell Distribution Width 15.9 % (11.8-14.3); White Blood Cell 5.3 10^3/uL (4.4-10.8)
[2017-10-20 06:09] LABS: Albumin 2.3 g/dL (3.4-5.0); BUN/Creatinine Ratio 16.5; Bilirubin, Total 1.3 mg/dL (0.2-1.0); Calcium 8.4 mg/dL (8.5-10.1); Potassium 4.3 mmol/L (3.5-5.1); Total Protein 5.5 g/dL (6.4-8.2)
[2017-10-20] MEDS: LACTULOSE 20Gm/30ML SOLN PO SCH ×4 (06:19→23:49)
[2017-10-20] MEDS: GABAPENTIN 100 MG CAP PO SCH ×3 (06:19→21:53)
[2017-10-20] MEDS: SPIRONOLACTONE 25 MG TAB PO SCH (10:12)
[2017-10-20] MEDS: FUROSEMIDE 20 MG TAB PO SCH (10:12)
[2017-10-20] MEDS: LORazepam 0.5 MG TAB PO PRN (14:01)
[2017-10-21] MEDS: LORazepam 0.5 MG TAB PO PRN (02:31)
[2017-10-21 05:21] VITALS: BP 117/71
[2017-10-21] MEDS: GABAPENTIN 100 MG CAP PO SCH ×2 (05:34→13:32)
[2017-10-21] MEDS: LACTULOSE 20Gm/30ML SOLN PO SCH ×2 (05:34→12:12)
[2017-10-21 08:00] VITALS: BP 114/66
[2017-10-21 09:00] VITALS: BP 114/66
[2017-10-21] MEDS: SPIRONOLACTONE 25 MG TAB PO SCH (09:35)
[2017-10-21] MEDS: FUROSEMIDE 20 MG TAB PO SCH (09:36)
[2017-10-21 13:00] VITALS: BP 105/72
[2017-10-21 17:07] VITALS: BP 126/88
== END 2017-10-21 18:10 | DRG 441 ==
LOC: ER 15:35 → EDBD 15:35 → OVERFLOW 15:36 → WEST WING 23:17
PROVIDERS: ADMIT Nurse Practitioner Family; ATTEND Family Medicine
DX: K72.90 Hepatic failure, unspecified without coma (principal); G93.41 Metabolic encephalopathy; E44.0 Moderate protein-calorie malnutrition; I13.0 Hypertensive heart and chronic kidney disease with heart failure and stage 1 through stage 4 chronic kidney disease, or unspecified chronic kidney disease; I50.9 Heart failure, unspecified; N18.3 Chronic kidney disease, stage 3 (moderate); F32.9 Major depressive disorder, single episode, unspecified; K74.60 Unspecified cirrhosis of liver; Z86.73 Personal history of transient ischemic attack (TIA), and cerebral infarction without residual deficits; F10.20 Alcohol dependence, uncomplicated; M19.90 Unspecified osteoarthritis, unspecified site; Z79.899 Other long term (current) drug therapy
CPT/HCPCS: 36415; 51702; 71045; 80053; 80307; 80320; 81001; 82140; 82962; 83605; 83735; 84484; 85025; 85610; 85730; 87081; 93005

== ENCOUNTER 2018-01-15 21:33 | Inpatient (IN) | payer MEDICARE, MEDICAID ==
[~2018-01-15] VITALS: Ht 167.6 cm; Wt 113.3 kg
[~2018-01-15 21:33] MED LIST changes: +AMIT10TA6 PO; -LIDO5DIS21 TOP; -RIFA550T PO; -SPIR25TA89 PO
[2018-01-15] MEDS ORDERED: LORazepam 2MG/ML-1ML VIAL ONE (22:25)
[2018-01-15] MEDS ORDERED: LORazepam 2MG/ML-1ML VIAL IV ONE (22:45)
[2018-01-15] MEDS ORDERED: LACTULOSE 20Gm/30ML SOLN PR ONE (23:00)
[2018-01-15 23:33] LABS: Basophils # (auto) 0 uL; Eosinophils # (auto) 0.1 uL; Hemoglobin 13.7 g/dL (12.2-16.2); Lymphocytes # (auto) 1.3 uL; Mean Corpuscular Volume 103.1 fL (80.0-100.0); Monocytes # (auto) 0.4 uL; Neutrophils # (auto) 1.5 uL; Nucleated Red Blood Cells % 0.1 %
[2018-01-15 23:35] LABS: Eosinophils % (auto) 2.9 % (0.0-7.0); Hematocrit 40.5 % (36.0-46.0); Lymphocytes % (auto) 38.6 % (10.0-50.0); Mean Corpuscular Hemoglobin 34.9 pg (28.0-32.0); Mean Corpuscular Hgb Conc. 33.8 g/dL (32.0-36.0); Monocytes % (auto) 12.3 % (0.0-12.0); Neutrophils % (auto) 45.2 % (37.0-80.0); Platelet Count (auto) 82 10^3/uL (140-450); Red Blood Cells 3.92 10^6/uL (4.0-5.20); Red Cell Distribution Width 15.1 % (11.8-14.3); White Blood Cell 3.3 10^3/uL (4.4-10.8)
[2018-01-15] MEDS ORDERED: LACTULOSE 20Gm/30ML SOLN ONE ×2 (23:45→23:47)
[2018-01-15 23:50] LABS: INR 1.22 (0.9-1.15); Partial Thromboplastin Time 30.8 sec (23.78-33.04); Prothrombin Time 12.9 sec (9.27-12.13)
[2018-01-15 23:57] LABS: Albumin 2.7 g/dL (3.4-5.0); Amylase 59 U/L (25-115); Anion Gap 11 (5-15); BUN/Creatinine Ratio 14.4; Blood Alcohol < 3.0 mg/dL (0-5); Blood Urea Nitrogen 22 mg/dL (7-18); Calcium 8.3 mg/dL (8.5-10.1); Carbon Dioxide 21 mmol/L (21-32); Chloride 112 mmol/L (98-107); GFR African American 44 mL/min; GFR Non-African American 37 mL/min; Glucose 124 mg/dL (74-106); Lipase 150 U/L (73-393); Magnesium 2.2 mg/dL (1.6-2.6); Potassium 4.8 mmol/L (3.5-5.1); Sodium 144 mmol/L (136-145)
[2018-01-16 00:01] LABS: Alanine Aminotransferase 31 U/L (13-56); Alkaline Phosphatase 163 U/L (45-117); Aspartate Aminotransferase 46 U/L (15-37); Bilirubin, Total 0.8 mg/dL (0.2-1.0); Total Protein 6.5 g/dL (6.4-8.2)
[2018-01-16] MEDS ORDERED: traMADol HCL 50 MG TAB PO PRN (02:45)
[2018-01-16] MEDS ORDERED: ONDANSETRON HCL 4 MG/2 ML VIAL IV PRN (02:45)
[2018-01-16] MEDS ORDERED: NITROGLYCERIN 0.4 MG SL TAB SL PRN (02:45)
[2018-01-16] MEDS ORDERED: MORPHINE SULF(PF) 0.5MG/ML 10ML VIAL IV PRN (02:45)
[2018-01-16] MEDS: LACTULOSE 20Gm/30ML SOLN PO SCH ×2 (06:00→13:52)
[2018-01-16] MEDS: PANTOPRAZOLE 40 MG TAB PO SCH (06:20)
[2018-01-16 07:14] LABS: Lactic Acid w/Reflex 2.9 mmol/L (0.4-2.0)
[2018-01-16] MEDS ORDERED: LACTULOSE 20Gm/30ML SOLN PO ONE (08:30)
[2018-01-16] MEDS: SPIRONOLACTONE 25 MG TAB PO SCH (09:58)
[2018-01-16] MEDS: PROPRANOLOL HCL 20 MG TAB PO SCH ×2 (09:59→22:00)
[2018-01-16] MEDS ORDERED: FUROSEMIDE 40 MG TAB PO SCH (10:00)
[2018-01-16] MEDS: RIFAXIMIN 550 MG TAB PO SCH ×2 (10:07→22:00)
[2018-01-16 11:34] LABS: Urine WBC None Seen /hpf (0 - 5)
[2018-01-16 11:43] LABS: Urine Bacteria NONE SEEN /hpf (None Seen); Urine Blood Negative /uL (Negative); Urine Specific Gravity 1.008 (1.001-1.035)
[2018-01-16 11:58] LABS: Alcohol, Urine < 3.0 mg/dL (0-5); Amphetamine Screen, Urine NEGATIVE (NEGATIVE); Barbiturate Scree,Urine NEGATIVE (NEGATIVE); Benzodiazephine Screen, Urine NEGATIVE (NEGATIVE); Cannabinoid Screen, Urine NEGATIVE (NEGATIVE); Cocaine Screen, Urine NEGATIVE (NEGATIVE); Opiate Scree,Urine NEGATIVE (NEGATIVE); Phencyclidine Screen, Urine NEGATIVE (NEGATIVE)
[2018-01-16] MEDS ORDERED: cefTRIAXone 1GM/10ml IVPUSH 10 ML IV ONE (19:15)
[2018-01-16] MEDS: SODIUM CHLORIDE 0.9% 1,000 ML IV SCH (19:45)
[2018-01-16 21:54] VITALS: BP 126/76
[2018-01-16] MEDS ORDERED: AMITRIPTYLINE HCL 10 MG TAB PO SCH (22:00)
[2018-01-17] MEDS: LACTULOSE 20Gm/30ML SOLN PO SCH ×4 (00:27→18:29)
[2018-01-17 05:05] VITALS: BP 127/72
[2018-01-17 05:31] LABS: Basophils # (auto) 0.1 uL; Basophils % (auto) 1.4 % (0.0-2.0); Eosinophils # (auto) 0.2 uL; Eosinophils % (auto) 3.1 % (0.0-7.0); Hematocrit 42.4 % (36.0-46.0); Hemoglobin 14.2 g/dL (12.2-16.2); Lymphocytes # (auto) 1.9 uL; Lymphocytes % (auto) 36.6 % (10.0-50.0); Mean Corpuscular Hgb Conc. 33.6 g/dL (32.0-36.0); Mean Corpuscular Volume 101.4 fL (80.0-100.0); Monocytes # (auto) 0.7 uL; Monocytes % (auto) 14.1 % (0.0-12.0); Neutrophils # (auto) 2.3 uL; Neutrophils % (auto) 44.8 % (37.0-80.0); Nucleated Red Blood Cells % 0.2 %; Platelet Count (auto) 87 10^3/uL (140-450); Red Blood Cells 4.18 10^6/uL (4.0-5.20); Red Cell Distribution Width 14.4 % (11.8-14.3); White Blood Cell 5.1 10^3/uL (4.4-10.8)
[2018-01-17 05:54] LABS: Albumin 2.8 g/dL (3.4-5.0); BUN/Creatinine Ratio 15.9; Bilirubin, Total 1.5 mg/dL (0.2-1.0); Calcium 8.8 mg/dL (8.5-10.1); Potassium 4.6 mmol/L (3.5-5.1); Total Protein 6.8 g/dL (6.4-8.2)
[2018-01-17] MEDS: PANTOPRAZOLE 40 MG TAB PO SCH (06:21)
[2018-01-17 08:26] VITALS: BP 123/74
[2018-01-17] MEDS ORDERED: cefTRIAXone 1GM/10ml IVPUSH 10 ML IV SCH (09:00)
[2018-01-17] MEDS: PROPRANOLOL HCL 20 MG TAB PO SCH ×2 (11:43→22:29)
[2018-01-17] MEDS: SPIRONOLACTONE 25 MG TAB PO SCH (11:44)
[2018-01-17] MEDS: RIFAXIMIN 550 MG TAB PO SCH ×2 (11:44→22:29)
[2018-01-17 11:51] VITALS: BP 126/76
[2018-01-17] MEDS: SODIUM CHLORIDE 0.9% 1,000 ML IV SCH (16:59)
[2018-01-17 17:04] VITALS: BP 126/69
[2018-01-17 21:47] VITALS: BP 115/78
[2018-01-18 05:30] VITALS: BP 104/67
[2018-01-18] MEDS: LACTULOSE 20Gm/30ML SOLN PO SCH ×5 (06:16→22:22)
[2018-01-18] MEDS: PANTOPRAZOLE 40 MG TAB PO SCH (06:16)
[2018-01-18 09:44] VITALS: BP 127/74
[2018-01-18] MEDS: RIFAXIMIN 550 MG TAB PO SCH ×2 (10:00→22:23)
[2018-01-18] MEDS: PROPRANOLOL HCL 20 MG TAB PO SCH ×2 (10:00→22:20)
[2018-01-18] MEDS: SPIRONOLACTONE 25 MG TAB PO SCH (10:00)
[2018-01-18 13:14] VITALS: BP 138/90
[2018-01-18] MEDS ORDERED: traMADol HCL 50 MG TAB PO PRN (16:00)
[2018-01-18 17:14] VITALS: BP 136/74
[2018-01-18 21:16] VITALS: BP 135/79
[2018-01-18 22:02] LABS: Albumin 2.9 g/dL (3.4-5.0); Potassium 4.7 mmol/L (3.5-5.1)
[2018-01-18 22:05] LABS: Bilirubin, Total 1.5 mg/dL (0.2-1.0); Total Protein 6.7 g/dL (6.4-8.2)
[2018-01-19] MEDS: LACTULOSE 20Gm/30ML SOLN PO SCH ×2 (02:08→06:27)
[2018-01-19 05:26] VITALS: BP 130/64
[2018-01-19] MEDS: PANTOPRAZOLE 40 MG TAB PO SCH (06:27)
[2018-01-19 08:28] VITALS: BP 129/71
[2018-01-19] MEDS: PROPRANOLOL HCL 20 MG TAB PO SCH (09:47)
[2018-01-19] MEDS: RIFAXIMIN 550 MG TAB PO SCH (11:33)
[2018-01-19] MEDS ORDERED: LACTULOSE 20Gm/30ML SOLN PO SCH (12:00)
[2018-01-19 12:43] VITALS: BP 159/82
[2018-01-19] MEDS ORDERED: RIFA550T PO (12:48)
[2018-01-19 13:20] VITALS: BP 159/82
[2018-01-19 17:06] VITALS: BP 129/70
== END 2018-01-19 17:00 | disposition home or self-care (01) | DRG 432 ==
LOC: EDBD 21:33 → ER 21:35 → TELE 21:36 → TELE-CENTR 01-16 20:52 → CENTRAL 01-17 17:11
PROVIDERS: ADMIT Nurse Practitioner; ATTEND Internal Medicine
DX: K70.40 Alcoholic hepatic failure without coma (principal); K76.7 Hepatorenal syndrome; E43 Unspecified severe protein-calorie malnutrition; N17.0 Acute kidney failure with tubular necrosis; I13.0 Hypertensive heart and chronic kidney disease with heart failure and stage 1 through stage 4 chronic kidney disease, or unspecified chronic kidney disease; K76.6 Portal hypertension; Z68.41 Body mass index [BMI] 40.0-44.9, adult; E66.01 Morbid (severe) obesity due to excess calories; N18.3 Chronic kidney disease, stage 3 (moderate); K43.9 Ventral hernia without obstruction or gangrene; D69.6 Thrombocytopenia, unspecified; I50.9 Heart failure, unspecified; F32.9 Major depressive disorder, single episode, unspecified; K42.9 Umbilical hernia without obstruction or gangrene; M19.90 Unspecified osteoarthritis, unspecified site; K70.30 Alcoholic cirrhosis of liver without ascites; Z82.3 Family history of stroke; Z98.84 Bariatric surgery status; Z81.1 Family history of alcohol abuse and dependence; Z79.899 Other long term (current) drug therapy
CPT/HCPCS: 36415; 51702; 71045; 80053; 80307; 80320; 81001; 82140; 82150; 82962; 83605; 83690; 83735; 84484; 85025; 85379; 85610; 85730; 94761; 96361; 96374

== ENCOUNTER 2018-02-27 10:12 | Inpatient (IN) | payer MEDICARE, MEDICAID ==
[~2018-02-27] VITALS: Ht 167.6 cm; Wt 107.0 kg
[~2018-02-27 10:12] MED LIST changes: +RIFA550T PO
[2018-02-27] MEDS ORDERED: LORazepam 2MG/ML-1ML VIAL ONE (10:29)
[2018-02-27] MEDS ORDERED: HALOPERIDOL LACTATE 5 MG/ML INJ VIAL ONE (10:29)
[2018-02-27] MEDS ORDERED: diphenhdrAMINE HCL 50 MG/1 ML VL ONE (10:29)
[2018-02-27] MEDS ORDERED: LORazepam 2MG/ML-1ML VIAL IM ONE (10:30)
[2018-02-27] MEDS ORDERED: diphenhdrAMINE HCL 50 MG/1 ML VL IM ONE (10:30)
[2018-02-27] MEDS ORDERED: HALOPERIDOL LACTATE 5 MG/ML INJ VIAL IM ONE ×2 (10:30→13:45)
[2018-02-27] MEDS ORDERED: SODIUM CHLORIDE 0.9% 1,000 ML IV ONE ×2 (10:40→13:11)
[2018-02-27 11:03] LABS: Urine Bacteria FEW /hpf (None Seen); Urine Blood 1+ /uL (Negative); Urine Specific Gravity 1.011 (1.001-1.035); Urine WBC 5 /hpf (0 - 5)
[2018-02-27 11:21] LABS: Basophils # (auto) 0 uL; Basophils % (auto) 0.7 % (0.0-2.0); Eosinophils # (auto) 0.2 uL; Eosinophils % (auto) 3.6 % (0.0-7.0); Hematocrit 45.7 % (36.0-46.0); Hemoglobin 15.4 g/dL (12.2-16.2); Lymphocytes # (auto) 2.1 uL; Lymphocytes % (auto) 39.7 % (10.0-50.0); Mean Corpuscular Hemoglobin 33.6 pg (28.0-32.0); Mean Corpuscular Hgb Conc. 33.7 g/dL (32.0-36.0); Mean Corpuscular Volume 99.7 fL (80.0-100.0); Monocytes # (auto) 0.7 uL; Neutrophils # (auto) 2.2 uL; Nucleated Red Blood Cells % 0.2 %; Platelet Count (auto) 116 10^3/uL (140-450); Red Blood Cells 4.58 10^6/uL (4.0-5.20); Red Cell Distribution Width 13.9 % (11.8-14.3); White Blood Cell 5.2 10^3/uL (4.4-10.8)
[2018-02-27 11:33] LABS: INR 1.25 (0.9-1.15); Partial Thromboplastin Time 28.2 sec (23.78-33.04); Prothrombin Time 13.2 sec (9.27-12.13)
[2018-02-27 11:40] LABS: BUN/Creatinine Ratio 19.5; Bilirubin, Total 1.6 mg/dL (0.2-1.0); Calcium 9.2 mg/dL (8.5-10.1); Potassium 3.8 mmol/L (3.5-5.1); Total Protein 7.1 g/dL (6.4-8.2)
[2018-02-27] MEDS ORDERED: LACTULOSE 20Gm/30ML SOLN PR ONE (13:15)
[2018-02-27] MEDS ORDERED: cefTRIAXone 1GM/10ml IVPUSH 10 ML IV ONE ×2 (13:15→14:00)
[2018-02-27] MEDS ORDERED: LACTULOSE 20Gm/30ML SOLN PO ONE (13:15)
[2018-02-27] MEDS: SODIUM CHLOR 0.9% PF (SALINE LOCK) 10ML VIAL/SYR IV SCH ×2 (14:00→22:05)
[2018-02-27] MEDS: LACTULOSE 20Gm/30ML SOLN PO SCH ×3 (14:00→22:05)
[2018-02-27] MEDS ORDERED: DEXTROSE (50%) 50ML SYRG IV PRN (14:00)
[2018-02-27] MEDS ORDERED: NITROGLYCERIN 0.4 MG SL TAB SL PRN (14:00)
[2018-02-27] MEDS ORDERED: MORPHINE SULF INJ 2 MG/ML SYRINGE 1ML IV PRN ×2 (14:00)
[2018-02-27] MEDS: GABAPENTIN 100 MG CAP PO SCH ×2 (14:00→22:00)
[2018-02-27] MEDS ORDERED: traMADol HCL 50 MG TAB PO PRN (14:00)
[2018-02-27] MEDS ORDERED: PROMETHAZINE HCL 25 MG/ML 1ML IV PRN (14:00)
[2018-02-27] MEDS: PANTOPRAZOLE 40 MG TAB PO SCH (14:15)
[2018-02-27] MEDS: InsuLIN REG 1unit/0.01ml Soln (100units/ml) SC SCH ×2 (17:00→22:00)
[2018-02-27] MEDS: ACCU-CHEK COMFORT CURVE STRIP VI SCH ×2 (17:29→22:00)
[2018-02-27] MEDS: FUROSEMIDE 40 MG/4 ML VIAL IV SCH (18:23)
[2018-02-27] MEDS: AMITRIPTYLINE HCL 10 MG TAB PO SCH (22:00)
[2018-02-27] MEDS: RIFAXIMIN 550 MG TAB PO SCH (22:00)
[2018-02-27] MEDS: PROPRANOLOL HCL 20 MG TAB PO SCH (22:00)
[2018-02-28] MEDS: LORazepam 2MG/ML-1ML VIAL IV PRN ×2 (02:14→10:59)
[2018-02-28] MEDS: LACTULOSE 20Gm/30ML SOLN PO SCH ×3 (02:14→11:09)
[2018-02-28] MEDS: SODIUM CHLOR 0.9% PF (SALINE LOCK) 10ML VIAL/SYR IV SCH ×3 (05:53→22:15)
[2018-02-28] MEDS: GABAPENTIN 100 MG CAP PO SCH ×3 (06:00→22:17)
[2018-02-28] MEDS: FUROSEMIDE 40 MG/4 ML VIAL IV SCH ×2 (06:22→18:33)
[2018-02-28] MEDS: InsuLIN REG 1unit/0.01ml Soln (100units/ml) SC SCH ×4 (07:00→22:00)
[2018-02-28] MEDS: ACCU-CHEK COMFORT CURVE STRIP VI SCH ×4 (07:29→22:00)
[2018-02-28 07:35] LABS: Albumin 3.1 g/dL (3.4-5.0); BUN/Creatinine Ratio 22.1; Calcium 9.3 mg/dL (8.5-10.1); Potassium 3.6 mmol/L (3.5-5.1)
[2018-02-28 07:37] LABS: Bilirubin, Total 1.7 mg/dL (0.2-1.0); Total Protein 7.2 g/dL (6.4-8.2)
[2018-02-28] MEDS: cefTRIAXone 1GM/10ml IVPUSH 10 ML IV SCH (09:42)
[2018-02-28] MEDS: RIFAXIMIN 550 MG TAB PO SCH ×2 (11:07→22:17)
[2018-02-28] MEDS: PANTOPRAZOLE 40 MG TAB PO SCH (11:08)
[2018-02-28] MEDS: PROPRANOLOL HCL 20 MG TAB PO SCH ×2 (11:08→22:16)
[2018-02-28] MEDS ORDERED: LACTULOSE 20Gm/30ML SOLN PR SCH (12:30)
[2018-02-28 13:00] VITALS: BP 142/90
[2018-02-28 15:05] VITALS: BP 142/90
[2018-02-28 17:00] VITALS: BP 114/60
[2018-02-28] MEDS ORDERED: LACTULOSE 20Gm/30ML SOLN PO ONE (18:15)
[2018-02-28 20:00] VITALS: BP 110/73
[2018-02-28 22:00] VITALS: BP 110/73
[2018-02-28] MEDS: AMITRIPTYLINE HCL 10 MG TAB PO SCH (22:15)
[2018-03-01] MEDS: LACTULOSE 20Gm/30ML SOLN PO SCH ×6 (00:43→22:06)
[2018-03-01 05:16] VITALS: BP 93/52
[2018-03-01] MEDS: FUROSEMIDE 40 MG/4 ML VIAL IV SCH ×3 (06:00→18:00)
[2018-03-01] MEDS: SODIUM CHLOR 0.9% PF (SALINE LOCK) 10ML VIAL/SYR IV SCH ×3 (07:00→23:29)
[2018-03-01] MEDS: InsuLIN REG 1unit/0.01ml Soln (100units/ml) SC SCH ×4 (07:00→22:00)
[2018-03-01] MEDS: ACCU-CHEK COMFORT CURVE STRIP VI SCH ×4 (07:01→22:05)
[2018-03-01] MEDS: GABAPENTIN 100 MG CAP PO SCH ×3 (07:01→22:08)
[2018-03-01 07:32] LABS: Basophils # (auto) 0 uL; Basophils % (auto) 0.9 % (0.0-2.0); Eosinophils # (auto) 0.2 uL; Hematocrit 46.1 % (36.0-46.0); Hemoglobin 15.5 g/dL (12.2-16.2); Lymphocytes # (auto) 2.1 uL; Lymphocytes % (auto) 36.5 % (10.0-50.0); Mean Corpuscular Hemoglobin 33.3 pg (28.0-32.0); Mean Corpuscular Hgb Conc. 33.6 g/dL (32.0-36.0); Mean Corpuscular Volume 99.2 fL (80.0-100.0); Monocytes # (auto) 0.7 uL; Monocytes % (auto) 11.5 % (0.0-12.0); Neutrophils # (auto) 2.7 uL; Neutrophils % (auto) 47.1 % (37.0-80.0); Nucleated Red Blood Cells % 0.2 %; Platelet Count (auto) 102 10^3/uL (140-450); Red Blood Cells 4.65 10^6/uL (4.0-5.20); Red Cell Distribution Width 13.8 % (11.8-14.3); White Blood Cell 5.7 10^3/uL (4.4-10.8)
[2018-03-01 07:35] LABS: BUN/Creatinine Ratio 24.5; Calcium 8.8 mg/dL (8.5-10.1); Potassium 3.7 mmol/L (3.5-5.1)
[2018-03-01 08:00] VITALS: BP 114/65
[2018-03-01 09:36] VITALS: BP 104/70
[2018-03-01] MEDS: PROPRANOLOL HCL 20 MG TAB PO SCH ×2 (10:00→22:00)
[2018-03-01] MEDS: PANTOPRAZOLE 40 MG TAB PO SCH (11:10)
[2018-03-01] MEDS: cefTRIAXone 1GM/10ml IVPUSH 10 ML IV SCH (11:10)
[2018-03-01] MEDS: RIFAXIMIN 550 MG TAB PO SCH ×2 (11:10→22:08)
[2018-03-01 13:56] VITALS: BP 114/65
[2018-03-01 18:13] VITALS: BP 106/68
[2018-03-01 22:00] VITALS: BP 95/61
[2018-03-01] MEDS: AMITRIPTYLINE HCL 10 MG TAB PO SCH (22:07)
[2018-03-02] MEDS: LACTULOSE 20Gm/30ML SOLN PO SCH ×6 (02:03→17:45)
[2018-03-02 05:09] VITALS: BP 97/48
[2018-03-02] MEDS: FUROSEMIDE 40 MG/4 ML VIAL IV SCH ×2 (06:00→17:45)
[2018-03-02] MEDS: SODIUM CHLOR 0.9% PF (SALINE LOCK) 10ML VIAL/SYR IV SCH ×2 (06:00→13:20)
[2018-03-02] MEDS: InsuLIN REG 1unit/0.01ml Soln (100units/ml) SC SCH ×3 (06:09→17:00)
[2018-03-02] MEDS: GABAPENTIN 100 MG CAP PO SCH ×2 (06:09→13:20)
[2018-03-02] MEDS: ACCU-CHEK COMFORT CURVE STRIP VI SCH ×3 (06:10→17:45)
[2018-03-02 06:42] LABS: Basophils # (auto) 0 uL; Basophils % (auto) 0.8 % (0.0-2.0); Eosinophils # (auto) 0.3 uL; Eosinophils % (auto) 4.7 % (0.0-7.0); Hematocrit 43.1 % (36.0-46.0); Lymphocytes # (auto) 2.2 uL; Lymphocytes % (auto) 40.3 % (10.0-50.0); Mean Corpuscular Hgb Conc. 34.7 g/dL (32.0-36.0); Mean Corpuscular Volume 97.8 fL (80.0-100.0); Monocytes # (auto) 0.8 uL; Monocytes % (auto) 15.1 % (0.0-12.0); Neutrophils # (auto) 2.1 uL; Neutrophils % (auto) 39.1 % (37.0-80.0); Platelet Count (auto) 85 10^3/uL (140-450); Red Blood Cells 4.41 10^6/uL (4.0-5.20); Red Cell Distribution Width 13.4 % (11.8-14.3); White Blood Cell 5.5 10^3/uL (4.4-10.8)
[2018-03-02 07:09] LABS: BUN/Creatinine Ratio 21.4; Calcium 8.7 mg/dL (8.5-10.1); Potassium 3.2 mmol/L (3.5-5.1)
[2018-03-02 08:00] VITALS: BP 100/55
[2018-03-02 09:00] VITALS: BP 100/55
[2018-03-02] MEDS: PROPRANOLOL HCL 20 MG TAB PO SCH (09:41)
[2018-03-02] MEDS: cefTRIAXone 1GM/10ml IVPUSH 10 ML IV SCH (09:41)
[2018-03-02] MEDS: PANTOPRAZOLE 40 MG TAB PO SCH (09:42)
[2018-03-02] MEDS: RIFAXIMIN 550 MG TAB PO SCH (09:42)
[2018-03-02 13:00] VITALS: BP 114/69
[2018-03-02] MEDS ORDERED: POTASSIUM CHL 10 Meq TABLET PO ONE (14:45)
[2018-03-02 16:45] VITALS: BP 114/69
[2018-03-02 17:00] VITALS: BP 102/61
== END 2018-03-02 18:30 | disposition home or self-care (01) | DRG 441 ==
LOC: EDBD 10:12 → ER 10:12 → TELE 10:13 → TELE-CENTR 02-28 13:50
PROVIDERS: ADMIT Internal Medicine; ATTEND Internal Medicine
DX: K72.90 Hepatic failure, unspecified without coma (principal); N17.0 Acute kidney failure with tubular necrosis; N39.0 Urinary tract infection, site not specified; E44.0 Moderate protein-calorie malnutrition; I13.0 Hypertensive heart and chronic kidney disease with heart failure and stage 1 through stage 4 chronic kidney disease, or unspecified chronic kidney disease; I50.32 Chronic diastolic (congestive) heart failure; N18.4 Chronic kidney disease, stage 4 (severe); K70.30 Alcoholic cirrhosis of liver without ascites; I11.0 Hypertensive heart disease with heart failure; F32.9 Major depressive disorder, single episode, unspecified; E66.9 Obesity, unspecified; E11.21 Type 2 diabetes mellitus with diabetic nephropathy; K76.9 Liver disease, unspecified; Z68.38 Body mass index [BMI] 38.0-38.9, adult; Z82.3 Family history of stroke; Z81.1 Family history of alcohol abuse and dependence; M19.90 Unspecified osteoarthritis, unspecified site; Z98.84 Bariatric surgery status
CPT/HCPCS: 36415; 70450; 71045; 74176; 80048; 80053; 81001; 82140; 82962; 83036; 83880; 84484; 85025; 85610; 85730; 87081; 87086; 87088; 87186; 96372; J0696

== ENCOUNTER 2018-03-09 15:10 | Inpatient (IN) | payer MEDICARE, MEDICAID ==
[~2018-03-09] VITALS: Ht 170.2 cm; Wt 122.1 kg
[2018-03-09 16:08] LABS: Basophils # (auto) 0.1 uL; Basophils % (auto) 0.9 % (0.0-2.0); Eosinophils # (auto) 0.2 uL; Eosinophils % (auto) 3.2 % (0.0-7.0); Hematocrit 41.2 % (36.0-46.0); Hemoglobin 13.8 g/dL (12.2-16.2); Lymphocytes # (auto) 1.6 uL; Mean Corpuscular Hemoglobin 33.6 pg (28.0-32.0); Mean Corpuscular Hgb Conc. 33.6 g/dL (32.0-36.0); Monocytes # (auto) 0.9 uL; Monocytes % (auto) 14.5 % (0.0-12.0); Neutrophils # (auto) 3.4 uL; Neutrophils % (auto) 55.4 % (37.0-80.0); Nucleated Red Blood Cells % 0.1 %; Platelet Count (auto) 134 10^3/uL (140-450); Red Blood Cells 4.12 10^6/uL (4.0-5.20); Red Cell Distribution Width 14.5 % (11.8-14.3); White Blood Cell 6.1 10^3/uL (4.4-10.8)
[2018-03-09 16:24] LABS: BUN/Creatinine Ratio 24.8; Calcium 8.3 mg/dL (8.5-10.1); Potassium 4.6 mmol/L (3.5-5.1)
[2018-03-09 16:29] LABS: Bilirubin, Total 0.9 mg/dL (0.2-1.0); Total Protein 6.9 g/dL (6.4-8.2)
[2018-03-09] MEDS ORDERED: SODIUM CHLORIDE 0.9% 1,000 ML IV ONE (21:45)
[2018-03-09] MEDS ORDERED: LACTULOSE 20Gm/30ML SOLN ONE (22:43)
[2018-03-09] MEDS ORDERED: LACTULOSE 20Gm/30ML SOLN PO ONE (22:45)
[2018-03-10] VITALS (7 sets, daily range): BP systolic 94–127; BP diastolic 48–71
[2018-03-10] MEDS ORDERED: ONDANSETRON HCL 4 MG/2 ML VIAL IV PRN (00:30)
[2018-03-10 00:44] LABS: Urine Bacteria NONE SEEN /hpf (None Seen); Urine Blood Negative /uL (Negative); Urine WBC 6 /hpf (0 - 5)
[2018-03-10] MEDS: traMADol HCL 50 MG TAB PO PRN ×4 (02:15→21:50)
[2018-03-10] MEDS ORDERED: LORA-655 PO (03:30)
[2018-03-10] MEDS: LACTULOSE 20Gm/30ML SOLN PO SCH ×5 (05:50→21:50)
[2018-03-10] MEDS: GABAPENTIN 100 MG CAP PO SCH ×3 (05:50→21:50)
[2018-03-10] MEDS: RIFAXIMIN 550 MG TAB PO SCH ×2 (09:07→21:50)
[2018-03-10] MEDS: PANTOPRAZOLE 40 MG TAB PO SCH (09:08)
[2018-03-10] MEDS: FUROSEMIDE 40 MG TAB PO SCH (09:13)
[2018-03-10] MEDS: PROPRANOLOL HCL 20 MG TAB PO SCH (10:00)
[2018-03-10] MEDS ORDERED: cefTRIAXone 1GM/10ml IVPUSH 10 ML IV ONE (13:30)
[2018-03-11] MEDS: LACTULOSE 20Gm/30ML SOLN PO SCH ×6 (02:14→21:55)
[2018-03-11] MEDS: traMADol HCL 50 MG TAB PO PRN ×3 (03:36→21:58)
[2018-03-11 05:01] VITALS: BP 104/60
[2018-03-11] MEDS: GABAPENTIN 100 MG CAP PO SCH ×3 (05:35→21:58)
[2018-03-11 05:41] LABS: Basophils # (auto) 0 uL; Eosinophils # (auto) 0.2 uL; Eosinophils % (auto) 4.9 % (0.0-7.0); Hematocrit 37.2 % (36.0-46.0); Hemoglobin 12.5 g/dL (12.2-16.2); Lymphocytes # (auto) 1.6 uL; Lymphocytes % (auto) 38.5 % (10.0-50.0); Mean Corpuscular Hemoglobin 33.5 pg (28.0-32.0); Mean Corpuscular Hgb Conc. 33.6 g/dL (32.0-36.0); Mean Corpuscular Volume 99.5 fL (80.0-100.0); Monocytes # (auto) 0.5 uL; Monocytes % (auto) 12.9 % (0.0-12.0); Neutrophils # (auto) 1.7 uL; Neutrophils % (auto) 42.7 % (37.0-80.0); Nucleated Red Blood Cells % 0.2 %; Platelet Count (auto) 94 10^3/uL (140-450); Red Blood Cells 3.74 10^6/uL (4.0-5.20); Red Cell Distribution Width 14.4 % (11.8-14.3); White Blood Cell 4.1 10^3/uL (4.4-10.8)
[2018-03-11 05:51] LABS: Albumin 2.6 g/dL (3.4-5.0); BUN/Creatinine Ratio 26.4; Calcium 8.7 mg/dL (8.5-10.1)
[2018-03-11 05:53] LABS: Total Protein 6.1 g/dL (6.4-8.2)
[2018-03-11 09:15] VITALS: BP 137/75
[2018-03-11] MEDS: cefTRIAXone 1GM/10ml IVPUSH 10 ML IV SCH (09:52)
[2018-03-11] MEDS: PROPRANOLOL HCL 20 MG TAB PO SCH ×2 (09:53→21:59)
[2018-03-11] MEDS: FUROSEMIDE 40 MG TAB PO SCH (09:53)
[2018-03-11] MEDS: PANTOPRAZOLE 40 MG TAB PO SCH (09:53)
[2018-03-11] MEDS: RIFAXIMIN 550 MG TAB PO SCH ×2 (09:56→21:56)
[2018-03-11 12:32] VITALS: BP 111/68
[2018-03-11 17:07] VITALS: BP 104/65
[2018-03-11 21:56] VITALS: BP 117/68
[2018-03-12] MEDS: LACTULOSE 20Gm/30ML SOLN PO SCH ×3 (01:38→11:59)
[2018-03-12] MEDS: traMADol HCL 50 MG TAB PO PRN ×2 (03:43→11:59)
[2018-03-12 04:42] VITALS: BP 115/58
[2018-03-12] MEDS: GABAPENTIN 100 MG CAP PO SCH (06:18)
[2018-03-12 07:28] VITALS: BP 131/66
[2018-03-12 07:43] LABS: Basophils # (auto) 0 uL; Eosinophils # (auto) 0.3 uL; Eosinophils % (auto) 7.3 % (0.0-7.0); Hemoglobin 12.8 g/dL (12.2-16.2); Lymphocytes # (auto) 1.7 uL; Mean Corpuscular Hemoglobin 32.7 pg (28.0-32.0); Mean Corpuscular Hgb Conc. 32.8 g/dL (32.0-36.0); Mean Corpuscular Volume 99.8 fL (80.0-100.0); Monocytes # (auto) 0.6 uL; Monocytes % (auto) 13.8 % (0.0-12.0); Neutrophils # (auto) 1.6 uL; Neutrophils % (auto) 36.9 % (37.0-80.0); Platelet Count (auto) 90 10^3/uL (140-450); White Blood Cell 4.2 10^3/uL (4.4-10.8)
[2018-03-12 07:55] VITALS: BP 131/66
[2018-03-12 08:13] LABS: Albumin 2.6 g/dL (3.4-5.0); BUN/Creatinine Ratio 23.6; Calcium 8.9 mg/dL (8.5-10.1); Potassium 4.5 mmol/L (3.5-5.1); Total Protein 6.1 g/dL (6.4-8.2)
[2018-03-12] MEDS: cefTRIAXone 1GM/10ml IVPUSH 10 ML IV SCH (09:14)
[2018-03-12] MEDS: RIFAXIMIN 550 MG TAB PO SCH (09:15)
[2018-03-12] MEDS: FUROSEMIDE 40 MG TAB PO SCH (09:16)
[2018-03-12] MEDS: PANTOPRAZOLE 40 MG TAB PO SCH (09:16)
[2018-03-12] MEDS: PROPRANOLOL HCL 20 MG TAB PO SCH (09:22)
[2018-03-12] MEDS ORDERED: IBUPROFEN 600 MG TAB PO ONE (09:45)
[2018-03-12 12:55] VITALS: BP 121/70
[2018-03-12 13:15] VITALS: BP 121/70
== END 2018-03-12 13:30 | disposition home or self-care (01) | DRG 432 ==
LOC: ER 15:13 → OVERFLOW 15:14 → WEST WING 03-10 01:07
PROVIDERS: ADMIT Nurse Practitioner; ATTEND Family Medicine
DX: K70.40 Alcoholic hepatic failure without coma (principal); G93.41 Metabolic encephalopathy; N17.9 Acute kidney failure, unspecified; N39.0 Urinary tract infection, site not specified; E72.20 Disorder of urea cycle metabolism, unspecified; I13.0 Hypertensive heart and chronic kidney disease with heart failure and stage 1 through stage 4 chronic kidney disease, or unspecified chronic kidney disease; N18.4 Chronic kidney disease, stage 4 (severe); I50.9 Heart failure, unspecified; G89.29 Other chronic pain; E66.01 Morbid (severe) obesity due to excess calories; K70.30 Alcoholic cirrhosis of liver without ascites; G62.9 Polyneuropathy, unspecified; Z79.899 Other long term (current) drug therapy
CPT/HCPCS: 36415; 71046; 74176; 80053; 81001; 82140; 84484; 85025; 87081; 93005; 96361; 96374; J0696

== ENCOUNTER 2018-03-15 10:48 | Emergency (ER) | payer MEDICARE, MEDICAID ==
[~2018-03-15] VITALS: Ht 167.6 cm; Wt 113.4 kg
[~2018-03-15 10:48] MED LIST changes: +LORA-655 PO
[2018-03-15 11:43] LABS: Basophils # (auto) 0.1 uL; Eosinophils # (auto) 0.2 uL; Eosinophils % (auto) 4.6 % (0.0-7.0); Hematocrit 35.5 % (36.0-46.0); Hemoglobin 11.7 g/dL (12.2-16.2); Lymphocytes # (auto) 1.4 uL; Lymphocytes % (auto) 31.4 % (10.0-50.0); Mean Corpuscular Hgb Conc. 32.9 g/dL (32.0-36.0); Mean Corpuscular Volume 100.1 fL (80.0-100.0); Monocytes # (auto) 0.6 uL; Monocytes % (auto) 14.4 % (0.0-12.0); Neutrophils % (auto) 46.6 % (37.0-80.0); Nucleated Red Blood Cells % 0.1 %; Platelet Count (auto) 102 10^3/uL (140-450); Red Blood Cells 3.55 10^6/uL (4.0-5.20); Red Cell Distribution Width 14.4 % (11.8-14.3); Urine Bacteria NONE SEEN /hpf (None Seen); Urine Blood Negative /uL (Negative); Urine Specific Gravity 1.007 (1.001-1.035); Urine WBC 1 /hpf (0 - 5); White Blood Cell 4.3 10^3/uL (4.4-10.8)
[2018-03-15 12:06] LABS: Alanine Aminotransferase 33 U/L (13-56); Albumin 2.5 g/dL (3.4-5.0); Alkaline Phosphatase 120 U/L (45-117); Anion Gap 9 (5-15); Aspartate Aminotransferase 45 U/L (15-37); Bilirubin, Total 0.7 mg/dL (0.2-1.0); Blood Urea Nitrogen 52 mg/dL (7-18); Carbon Dioxide 23 mmol/L (21-32); Chloride 109 mmol/L (98-107); GFR African American 25 mL/min; GFR Non-African American 21 mL/min; Glucose 53 mg/dL (74-106); Potassium 4.6 mmol/L (3.5-5.1); Sodium 141 mmol/L (136-145); Total Protein 6.1 g/dL (6.4-8.2)
[2018-03-15 13:03] LABS: Alcohol, Urine < 3.0 mg/dL (0-5); Amphetamine Screen, Urine NEGATIVE (NEGATIVE); Barbiturate Scree,Urine NEGATIVE (NEGATIVE); Benzodiazephine Screen, Urine NEGATIVE (NEGATIVE); Cannabinoid Screen, Urine NEGATIVE (NEGATIVE); Cocaine Screen, Urine NEGATIVE (NEGATIVE); Opiate Scree,Urine NEGATIVE (NEGATIVE); Phencyclidine Screen, Urine NEGATIVE (NEGATIVE)
[2018-03-15 14:31] VITALS: BP 130/74
== END 2018-03-15 14:35 | disposition home or self-care (01) ==
LOC: ER 10:48 → EDBD 10:48 → ER 14:35
DX: E16.2 Hypoglycemia, unspecified (principal); E44.0 Moderate protein-calorie malnutrition; I11.0 Hypertensive heart disease with heart failure; I50.9 Heart failure, unspecified; M19.90 Unspecified osteoarthritis, unspecified site; F41.9 Anxiety disorder, unspecified; F32.9 Major depressive disorder, single episode, unspecified; Z68.41 Body mass index [BMI] 40.0-44.9, adult
CPT/HCPCS: 36415; 80053; 80307; 80320; 81001; 82140; 82962; 84484; 85025; 93005

== ENCOUNTER 2018-04-24 10:08 | Emergency (ER) | payer MEDICARE, MEDICAID ==
[~2018-04-24] VITALS: Ht 165.1 cm; Wt 140.6 kg
[2018-04-24] MEDS ORDERED: LACTULOSE 20Gm/30ML SOLN PO ONE (10:45)
[2018-04-24 11:43] VITALS: BP 145/93
[2018-04-24 12:15] LABS: Albumin 2.7 g/dL (3.4-5.0); Anion Gap 9 (5-15); BUN/Creatinine Ratio 18.7; Blood Alcohol < 3.0 mg/dL (0-5); Blood Urea Nitrogen 29 mg/dL (7-18); Calcium 8.6 mg/dL (8.5-10.1); Carbon Dioxide 22 mmol/L (21-32); Chloride 111 mmol/L (98-107); GFR African American 44 mL/min; GFR Non-African American 36 mL/min; Glucose 102 mg/dL (74-106); Magnesium 2.5 mg/dL (1.6-2.6); Potassium 4.6 mmol/L (3.5-5.1); Sodium 142 mmol/L (136-145)
[2018-04-24 12:31] LABS: Alanine Aminotransferase 29 U/L (13-56); Alkaline Phosphatase 185 U/L (45-117); Aspartate Aminotransferase 38 U/L (15-37); Total Protein 6.4 g/dL (6.4-8.2)
[2018-04-24 13:04] LABS: Basophils # (auto) 0.1 uL; Basophils % (auto) 1.5 % (0.0-2.0); Eosinophils # (auto) 0.2 uL; Eosinophils % (auto) 4.8 % (0.0-7.0); Hematocrit 41.6 % (36.0-46.0); Hemoglobin 13.3 g/dL (12.2-16.2); Lymphocytes # (auto) 1.6 uL; Lymphocytes % (auto) 44.5 % (10.0-50.0); Mean Corpuscular Hemoglobin 32.2 pg (28.0-32.0); Mean Corpuscular Volume 100.4 fL (80.0-100.0); Monocytes # (auto) 0.5 uL; Monocytes % (auto) 12.9 % (0.0-12.0); Neutrophils # (auto) 1.3 uL; Neutrophils % (auto) 36.3 % (37.0-80.0); Nucleated Red Blood Cells % 0.1 %; Platelet Count (auto) 94 10^3/uL (140-450); Red Blood Cells 4.14 10^6/uL (4.0-5.20); Red Cell Distribution Width 15.3 % (11.8-14.3); White Blood Cell 3.7 10^3/uL (4.4-10.8)
== END 2018-04-24 16:00 | disposition home or self-care (01) ==
LOC: EDBD 10:08 → ER 10:14
DX: K74.60 Unspecified cirrhosis of liver (principal); M19.90 Unspecified osteoarthritis, unspecified site; I11.0 Hypertensive heart disease with heart failure; I50.9 Heart failure, unspecified
CPT/HCPCS: 36415; 70450; 80053; 80320; 82140; 82962; 83735; 84484; 85025; 93005

== ENCOUNTER 2018-08-30 15:39 | Inpatient (IN) | payer MEDICARE, MEDICAID | END 2018-09-03 13:55 | disposition home or self-care (01) | LOC: TELE 08-31 02:43 → TELE-CENTR 08-31 15:41 → CENTRAL 08-31 17:33 → ER 15:39 | DX: K70.30 Alcoholic cirrhosis of liver without ascites (principal); N17.9 Acute kidney failure, unspecified; I13.0 Hypertensive heart and chronic kidney disease with heart failure and stage 1 through stage 4 chronic kidney disease, or unspecified chronic kidney disease; E72.4 Disorders of ornithine metabolism; E16.2 Hypoglycemia, unspecified; E87.5 Hyperkalemia; K72.90 Hepatic failure, unspecified without coma; K74.60 Unspecified cirrhosis of liver; I10 Essential (primary) hypertension; N18.3 Chronic kidney disease, stage 3 (moderate); I50.9 Heart failure, unspecified ==

== ENCOUNTER 2020-06-16 19:25 | Inpatient (IN) | payer MEDICARE, MEDICAID ==
[~2020-06-16] VITALS: Ht 172.7 cm; Wt 153.0 kg
[2020-06-16] MEDS ORDERED: LORazepam 2MG/ML-1ML VIAL IV ONE (19:45)
[2020-06-16] MEDS ORDERED: diphenhdrAMINE HCL 50 MG/1 ML VL IV ONE ×2 (20:30→22:00)
[2020-06-16 21:56] LABS: Basophils # (auto) 0.1 10 ^3/uL (0-0.2); Basophils % (auto) 1.1 % (0.0-2.0); Eosinophils # (auto) 0.3 10 ^3/uL (0-0.8); Lymphocytes # (auto) 1.1 10 ^3/uL (0.4-5.4); Lymphocytes % (auto) 18.5 % (10.0-50.0); Monocytes # (auto) 0.6 10 ^3/uL (0-1.3); Platelet Count (auto) 153 10^3/uL (140-450)
[2020-06-16 21:58] LABS: Eosinophils % (auto) 4.9 % (0.0-7.0); Hematocrit 26.5 % (36.0-46.0); Hemoglobin 8.2 g/dL (12.2-16.2); Mean Corpuscular Hemoglobin 33.7 pg (28.0-32.0); Mean Corpuscular Hgb Conc. 31.1 g/dL (32.0-36.0); Mean Corpuscular Volume 108.3 fL (80.0-100.0); Neutrophils # (auto) 4.1 10 ^3/uL (1.6-8.6); Neutrophils % (auto) 66.5 % (37.0-80.0); Nucleated Red Blood Cells % 0.1 %; Red Blood Cells 2.44 10^6/uL (4.0-5.20); Red Cell Distribution Width 18.5 % (11.8-14.3); White Blood Cell 6.2 10^3/uL (4.4-10.8)
[2020-06-16 22:21] LABS: Albumin 2.2 g/dL (3.4-5.0); Anion Gap 9 (5-15); Calcium 8.3 mg/dL (8.5-10.1); Carbon Dioxide 18 mmol/L (21-32); Chloride 115 mmol/L (98-107); Glucose 107 mg/dL (74-106); Lipase 167 U/L (73-393); Potassium 4.6 mmol/L (3.5-5.1); Sodium 142 mmol/L (136-145)
[2020-06-16 22:27] LABS: Alanine Aminotransferase 12 U/L (13-56); Alkaline Phosphatase 110 U/L (45-117); Aspartate Aminotransferase 23 U/L (15-37); BUN/Creatinine Ratio 26.6; Bilirubin, Total 0.7 mg/dL (0.2-1.0); GFR African American 18 mL/min; GFR Non-African American 15 mL/min; Total Protein 6.3 g/dL (6.4-8.2)
[2020-06-16 22:30] LABS: Blood Urea Nitrogen 88 mg/dL (7-18)
[2020-06-16] MEDS ORDERED: MORPHINE SULF INJ 2 MG/ML SYRINGE 1ML IV PRN ×2 (22:30)
[2020-06-16] MEDS ORDERED: FUROSEMIDE 20 MG/2 ML VIAL IV ONE (22:30)
[2020-06-16] MEDS ORDERED: NITROGLYCERIN 0.4 MG SL TAB SL PRN ×2 (22:30)
[2020-06-16] MEDS ORDERED: PIPERACILLIN-TAZOB 3.375GM 100 ML IV SCH (23:00)
[2020-06-16] MEDS ORDERED: AZITHROMYCIN 500MG/ 250ML 250 ML IV SCH ×2 (23:00)
[2020-06-16 23:05] LABS: Urine Bacteria MOD /hpf (None Seen); Urine Blood 3+ /uL (Negative); Urine Specific Gravity 1.016 (1.001-1.035); Urine WBC 36 /hpf (0 - 5)
[2020-06-16 23:10] LABS: INR 1.17 (0.9-1.15); Partial Thromboplastin Time 26.8 sec (23.0-31.2)
[2020-06-17] MEDS: PIPERACILLIN-TAZOB 3.375GM 100 ML IV SCH ×4 (00:56→22:47)
[2020-06-17] MEDS ORDERED: LACTULOSE 20Gm/30ML SOLN PO SCH (06:00)
[2020-06-17] MEDS ORDERED: SODIUM CHLORIDE 0.9% 1,000 ML IV SCH (09:00)
[2020-06-17] MEDS: THIAMINE 100mg/ml INJ (200mg/2ml VIAL) IV SCH (09:39)
[2020-06-17] MEDS: PANTOPRAZOLE 40 MG/10 ML VIAL INJ IV SCH (09:39)
--- NOTE | 2020-06-17 10:06 | NUR ---
EEG-UNABLE TO COMPLETE ELECTROENCEPHALOGRAM, PT RESTLESS CAUSING TOO MANY ARTIFACTS. WILL ATTEMPT AGAIN TOMORROW ON 06/18/2020.
[2020-06-17 10:29] LABS: Folate (Folic Acid) 8.77 ng/mL (5.38-24)
[2020-06-17] MEDS: AZITHROMYCIN 500MG/ 250ML 250 ML IV SCH (12:14)
[2020-06-17] MEDS: SODIUM CHLORIDE 0.9% 1,000 ML IV SCH (16:58)
--- NOTE | 2020-06-17 18:27 | NUR ---
WOUND PHOTOS TAKEN OF LEFT GROIN AND RIGHT FOREARM.
--- NOTE | 2020-06-17 18:57 | NUR ---
ENDORSED CARE TO NIGHT RN
--- NOTE | 2020-06-17 19:30 | NUR ---
Opening Shift Note Assumed care of patient, lethargic, arouseable to painful stimuli, non-verbal. Patient moans and yell when she is re-positioned. Patient on O2 at 2 LPM, oxygen saturation at 92%, no facial grimace for pain when not being moved. Sitter at bedside for patient safety. Instructed on POC and to call for assist PRN, will continue to monitor for changes Q1hr and PRN.
[2020-06-17] MEDS ORDERED: AMIT50TA3 PO (19:32)
[2020-06-17] MEDS ORDERED: LACT10SO70 PO (19:32)
[2020-06-17] MEDS ORDERED: TRAM-297 PO (19:32)
[2020-06-17] MEDS ORDERED: GABA300C11 PO (19:32)
[2020-06-17 22:00] VITALS: BP 112/72
[2020-06-18] MEDS: SODIUM CHLORIDE 0.9% 1,000 ML IV SCH ×2 (01:00→09:00)
[2020-06-18 05:00] VITALS: BP 117/67
[2020-06-18] MEDS: PIPERACILLIN-TAZOB 3.375GM 100 ML IV SCH ×3 (06:29→21:57)
[2020-06-18 08:00] VITALS: BP 142/68
--- NOTE | 2020-06-18 08:00 | NUR ---
Opening Shift Note Assumed care of patient, pt is confused and not arousable to voice and not verbal. Pt is arousable to painful stimuli. No S/S of distress/SOB or pain. Pt continues to moan loudly. Pt is on 2L/min O2 therapy and 98% O2 saturation. Sitter is at bedside. Bed is locked and in lowest position. EDNA IV is intact and patent. Will continue to monitor for changes Q1hr and PRN.
[2020-06-18 09:00] VITALS: BP 142/68
--- NOTE | 2020-06-18 10:22 | NUR ---
WOUND CARE NOTE: IN TO SEE PATIENT AT THIS TIME PER WOUND CARE CONSULT REQUEST. PATIENT ADMITTED TO [facility] WITH DIAGNOSIS OF TOXIC ENCEPHALOPATHY, CURRENT MARIBELL SCORE IS 14. PATIENT IS ALOC. BARIATRIC AIR BED HAS BEEN ORDERED. PATIENT TO BE PLACED, PENDING DELIVERY BY NEY KIM. LEFT GROIN IS NOTED TO HAVE INTERTRIGO, WITH MILD SKIN EROSION NOTED. BEDSIDE NURSE HAS APPLIED ANTIFUNGAL CLEAR OINTMENT. RIGHT FOREARM HAS SCABBED ABRASION. THERE IS EDEMA NOTED. TISSUES HAVE BEEN WEEPING, NO WEEPING NOTED CURRENTLY. LEFT OPEN TO AIR. NO OTHER SKIN ISSUES NOTED. RECOMMEND: FREQUENT TURN Q 2 HOURS, PRN CONDITION PERMITS, WITH PRESSURE REDISTRIBUTION USING PILLOWS/WEDGES, BID/PRN APPLICATION ANTIFUNGAL CLEAR TO SKIN FOLDS; MOISTURE BARRIER CREAM TO SACRAL SKIN, COVERING UPPER MEDIAL SACRUM WITH OPTIFOAM GENTLE SACRAL DRESSING, BARIATRIC AIR BED, SKIN/WOUND CARE PLAN, CONTINUED MONITORING BY WOUND CARE TEAM. Addendum: 06/18/20 at 1752 by Lamar Rodriguez RN Amended: Links added.
[2020-06-18] MEDS: PANTOPRAZOLE 40 MG/10 ML VIAL INJ IV SCH (10:45)
[2020-06-18] MEDS: THIAMINE 100mg/ml INJ (200mg/2ml VIAL) IV SCH (10:46)
[2020-06-18] MEDS: AZITHROMYCIN 500MG/ 250ML 250 ML IV SCH (10:46)
[2020-06-18 13:00] VITALS: BP 113/65
--- NOTE | 2020-06-18 15:28 | NUR ---
MIGUEL SAMPSON BEDSIDE NEW ORDERS TO BE CARRIED OUT. DEPENDING ON LABS, PATIENT WILL POSSIBLY HAVE A JEFFREY CATH PLACED FOR DIALYSIS
[2020-06-18 18:00] LABS: BUN/Creatinine Ratio 22.5; Calcium 8.2 mg/dL (8.5-10.1); Potassium 5.3 mmol/L (3.5-5.1)
--- NOTE | 2020-06-18 18:00 | NUR ---
JUSTIN FARAH BEDSIDE NO NEW ORDERS.
--- NOTE | 2020-06-18 18:16 | NUR ---
MD SAMPSON UPDATED ON LAB RESULTS BUN 87, K 5.2,CREAT3.87. NO NEW ORDERS AT THIS TIME. PATIENT GIVEN LASIX AT 1800.
[2020-06-18] MEDS: FUROSEMIDE 100 MG/10ML VIAL IV SCH (18:26)
--- NOTE | 2020-06-18 18:29 | NUR ---
SPECIALTY MATTRESS PATIENT PLACED ON AIR MATTRESS WITH 4 PERSON ASSIST. PATIENT TOLERATED WELL.
--- NOTE | 2020-06-18 18:30 | NUR ---
PICC LINE DRESSING CHANGED BY THIS RN.PATIENT TOLERATED WELL.
--- NOTE | 2020-06-18 19:02 | NUR ---
ENDORSED CARE TO NIGHT RN. NIGHT RN TO MONITOR I AND O TO REPORT TO DR SAMPSON.
--- NOTE | 2020-06-18 19:30 | NUR ---
Opening Shift Note Assumed care of patient, drowsy, easily arouseable to verbal stimuli. Patient moans and yell when she is re-positioned or touched. Patient on O2 at 2 LPM, oxygen saturation at 96%, no facial grimace for pain when not being moved. Patient's room close to the nurse's station for close monitoring. Instructed on POC and to call for assist PRN, will continue to monitor for changes Q1hr and PRN.
[2020-06-18 22:00] VITALS: BP 129/69
[2020-06-19 05:00] VITALS: BP 118/71
[2020-06-19] MEDS: FUROSEMIDE 100 MG/10ML VIAL IV SCH ×2 (05:50→18:27)
[2020-06-19] MEDS: PIPERACILLIN-TAZOB 3.375GM 100 ML IV SCH ×2 (05:51→14:16)
[2020-06-19 06:23] LABS: Basophils # (auto) 0.1 10 ^3/uL (0-0.2); Eosinophils # (auto) 0.2 10 ^3/uL (0-0.8); Lymphocytes # (auto) 1.1 10 ^3/uL (0.4-5.4); Lymphocytes % (auto) 11.3 % (10.0-50.0); Mean Corpuscular Hgb Conc. 32.7 g/dL (32.0-36.0); Monocytes # (auto) 0.5 10 ^3/uL (0-1.3); Monocytes % (auto) 5.4 % (0.0-12.0)
[2020-06-19 06:26] LABS: Basophils % (auto) 0.9 % (0.0-2.0); Eosinophils % (auto) 1.6 % (0.0-7.0); Hemoglobin 7.9 g/dL (12.2-16.2); Mean Corpuscular Hemoglobin 34.3 pg (28.0-32.0); Mean Corpuscular Volume 104.8 fL (80.0-100.0); Neutrophils # (auto) 7.9 10 ^3/uL (1.6-8.6); Neutrophils % (auto) 80.8 % (37.0-80.0); Nucleated Red Blood Cells % 0.1 %; Platelet Count (auto) 136 10^3/uL (140-450); Red Blood Cells 2.29 10^6/uL (4.0-5.20); Red Cell Distribution Width 18.2 % (11.8-14.3); White Blood Cell 9.8 10^3/uL (4.4-10.8)
--- NOTE | 2020-06-19 08:10 | NUR ---
Opening Shift Note Assumed care of patient, fatigued, easily arouseable to verbal stimuli. Patient is oriented to self. Patient moans and yells when she is re-positioned or touched. Patient on O2 at 2 liters, oxygen saturation at 96%, no facial grimace for pain when not being moved. Patient's room close to the nurse's station for close monitoring. Instructed on POC and to call for assist PRN, will continue to monitor for changes Q1hr and PRN.
[2020-06-19 09:00] VITALS: BP 110/75
[2020-06-19 09:46] LABS: Calcium 7.9 mg/dL (8.5-10.1); Potassium 4.8 mmol/L (3.5-5.1)
[2020-06-19 09:49] LABS: BUN/Creatinine Ratio 21.8
[2020-06-19] MEDS: THIAMINE 100mg/ml INJ (200mg/2ml VIAL) IV SCH (10:11)
[2020-06-19] MEDS: PANTOPRAZOLE 40 MG/10 ML VIAL INJ IV SCH (10:11)
[2020-06-19] MEDS: AZITHROMYCIN 500MG/ 250ML 250 ML IV SCH (10:16)
[2020-06-19 11:19] LABS: BUN/Creatinine Ratio 21.2; Calcium 7.8 mg/dL (8.5-10.1); Potassium 4.9 mmol/L (3.5-5.1)
--- NOTE | 2020-06-19 12:09 | NUR ---
EEG-UNABLE TO PERFORM ELECTROENCEPHALOGRAM, PT RESTLESS AND UNCOOPERATIVE.
[2020-06-19 13:00] VITALS: BP 146/76
--- NOTE | 2020-06-19 14:32 | NUR ---
Nutrition Assessment Note Please see attached link for complete assessment. Est energy needs IBW 70 [id number] kcal (25-30 kcal/kg IBW) , Est protein needs: 56-70 g (0.8-1.0 g/kg IBW r/t elev RFT) Will reassess per dry body wt Addendum: 06/19/20 at [address] Amended: Links added.
[2020-06-19 16:24] VITALS: BP 115/57
--- NOTE | 2020-06-19 19:30 | NUR ---
Opening Shift Note Assumed care of patient, drowsy, easily arouseable to verbal stimuli. Patient moans and yell when she is re-positioned or touched. Patient on O2 at 2 LPM, oxygen saturation at 94%, no facial grimace for pain when not being moved. Patient's room close to the nurse's station for close monitoring. Instructed on POC and to call for assist PRN, will continue to monitor for changes Q1hr and PRN.
--- NOTE | 2020-06-19 19:33 | NUR ---
ENDORSED CARE TO NIGHT RN, PATIENT WILL HAVE A PUREED DIET.
[2020-06-19] MEDS: PIPERACILLIN-TAZOB 2.25GM 50 ML IV SCH (21:49)
[2020-06-19 22:00] VITALS: BP 113/70
[2020-06-20] MEDS: PIPERACILLIN-TAZOB 2.25GM 50 ML IV SCH ×4 (02:30→22:00)
[2020-06-20 05:00] VITALS: BP 136/70
[2020-06-20] MEDS: FUROSEMIDE 100 MG/10ML VIAL IV SCH ×2 (05:47→18:00)
--- NOTE | 2020-06-20 06:45 | NUR ---
No significant change in patient status. Report will be given to oncoming RN.
[2020-06-20 07:02] LABS: Calcium 7.9 mg/dL (8.5-10.1); Magnesium 2.5 mg/dL (1.6-2.6); Potassium 4.4 mmol/L (3.5-5.1)
[2020-06-20 07:08] LABS: Albumin 1.9 g/dL (3.4-5.0); BUN/Creatinine Ratio 20.3; Total Protein 6.3 g/dL (6.4-8.2)
[2020-06-20 07:14] LABS: Basophils # (auto) 0.1 10 ^3/uL (0-0.2); Basophils % (auto) 0.6 % (0.0-2.0); Eosinophils # (auto) 0.1 10 ^3/uL (0-0.8); Hematocrit 23.3 % (36.0-46.0); Hemoglobin 7.4 g/dL (12.2-16.2); Monocytes # (auto) 0.5 10 ^3/uL (0-1.3)
[2020-06-20 07:16] LABS: Eosinophils % (auto) 1.1 % (0.0-7.0); Lymphocytes # (auto) 1.2 10 ^3/uL (0.4-5.4); Lymphocytes % (auto) 10.2 % (10.0-50.0); Mean Corpuscular Hemoglobin 33.3 pg (28.0-32.0); Mean Corpuscular Hgb Conc. 31.7 g/dL (32.0-36.0); Mean Corpuscular Volume 104.9 fL (80.0-100.0); Monocytes % (auto) 4.6 % (0.0-12.0); Neutrophils # (auto) 9.4 10 ^3/uL (1.6-8.6); Neutrophils % (auto) 83.5 % (37.0-80.0); Nucleated Red Blood Cells % 0.2 %; Platelet Count (auto) 130 10^3/uL (140-450); Red Blood Cells 2.22 10^6/uL (4.0-5.20); White Blood Cell 11.3 10^3/uL (4.4-10.8)
--- NOTE | 2020-06-20 08:00 | NUR ---
Opening Shift Note Assumed care of patient, drowsy, easily abusable to verbal stimuli. Patient oriented to self, yells when she is touched and or re-positioned. Patient on O2 at 2L oxygen saturation at 95%. Patient's room close to the nurse's station for close monitoring. Instructed on POC and to call for assist PRN. Bed at lowest locked position and call light withinreach. Will continue to monitor for changes Q1hr and PRN.
--- NOTE | 2020-06-20 08:40 | NUR ---
Dr. Ramsay notified/aware of patient's critical BUN lab. no new orders received.
[2020-06-20] MEDS: metOLazone 5 MG TAB PO SCH ×2 (08:46→09:01)
[2020-06-20] MEDS: PANTOPRAZOLE 40 MG/10 ML VIAL INJ IV SCH (08:46)
[2020-06-20] MEDS: THIAMINE 100mg/ml INJ (200mg/2ml VIAL) IV SCH (08:47)
[2020-06-20] MEDS: AZITHROMYCIN 500MG/ 250ML 250 ML IV SCH (08:48)
[2020-06-20 09:00] VITALS: BP 145/66
--- NOTE | 2020-06-20 09:30 | NUR ---
OPERATIONS AND INTELLIGENCE ASSISTANT INFORMED PATIENT'S RN RD THAT DR SAUCEDA DOES NOT PLACE YESSENIA CATHETERS. ALSO OPERATIONS AND INTELLIGENCE ASSISTANT PHONED JEREL FARAH NP AND INFORMED HER OF SAME - STATES WILL ASK DR FERNÁNDEZ TO PLACE YESSENIA.
[2020-06-20 13:00] VITALS: BP 139/71
--- NOTE | 2020-06-20 16:07 | NUR ---
UPDATED PATIENT'S NOKGETACHEW (SON)AFTER PASSWORD WAS PROVIDED.
[2020-06-20 17:00] VITALS: BP 136/81
--- NOTE | 2020-06-20 17:03 | NUR ---
Swallow evaluated with puree and thin liquids by spoon and cup sips with total assistance. Pt displayed ALOC throughout the assessment. Pt was edentulous and required prompts for oral intake. Swallow was timely and appropriate with no oral residue noted. Pt tolerated puree/thin with no overt signs or symptoms of aspiration noted. Recommended puree/thin with total assistance. Nursing notified.
--- NOTE | 2020-06-20 18:00 | NUR ---
Dr. Jackson at bedside for procedure
[2020-06-20] MEDS ORDERED: HEPARIN 1,000 UNITS/ml 1ML VIAL IV ONE ×3 (18:15→18:45)
[2020-06-20] MEDS ORDERED: HEPARIN 1,000 UNITS/ml 1ML VIAL IV STA (18:28)
--- NOTE | 2020-06-20 19:40 | NUR ---
care endorsed to NOC RN.
--- NOTE | 2020-06-20 20:00 | NUR ---
Opening Shift Note Assumed care of patient, awake and alert total care, yeller. No S/S of distress/SOB or pain. Instructed on POC and to call for assist PRN, will continue to monitor for changes Q1hr and PRN.
--- NOTE | 2020-06-20 21:15 | NUR ---
Dr. Jackson sutures the dialysis cath, in the left side of the neck.
[2020-06-20 22:00] VITALS: BP 125/67
[2020-06-21] MEDS: PIPERACILLIN-TAZOB 2.25GM 50 ML IV SCH ×4 (02:02→19:44)
[2020-06-21 05:00] VITALS: BP 134/65
[2020-06-21 05:34] LABS: Basophils # (auto) 0.1 10 ^3/uL (0-0.2); Basophils % (auto) 0.5 % (0.0-2.0); Hemoglobin 7.3 g/dL (12.2-16.2); Lymphocytes # (auto) 1.1 10 ^3/uL (0.4-5.4); Nucleated Red Blood Cells % 0.1 %
[2020-06-21] MEDS: FUROSEMIDE 100 MG/10ML VIAL IV SCH ×2 (05:34→18:44)
[2020-06-21 05:36] LABS: Eosinophils # (auto) 0.3 10 ^3/uL (0-0.8); Eosinophils % (auto) 2.1 % (0.0-7.0); Lymphocytes % (auto) 9.1 % (10.0-50.0); Mean Corpuscular Hemoglobin 32.9 pg (28.0-32.0); Mean Corpuscular Hgb Conc. 31.6 g/dL (32.0-36.0); Monocytes # (auto) 0.5 10 ^3/uL (0-1.3); Monocytes % (auto) 4.2 % (0.0-12.0); Neutrophils % (auto) 84.1 % (37.0-80.0); Platelet Count (auto) 138 10^3/uL (140-450); Red Blood Cells 2.21 10^6/uL (4.0-5.20); Red Cell Distribution Width 18.4 % (11.8-14.3); White Blood Cell 11.9 10^3/uL (4.4-10.8)
[2020-06-21 05:53] LABS: Magnesium 2.4 mg/dL (1.6-2.6); Potassium 4.5 mmol/L (3.5-5.1)
[2020-06-21 05:55] LABS: BUN/Creatinine Ratio 20.3
[2020-06-21 05:57] LABS: Bilirubin, Total 1.1 mg/dL (0.2-1.0); Total Protein 6.5 g/dL (6.4-8.2)
--- NOTE | 2020-06-21 06:40 | NUR ---
CALLED THE SON OF THE PATIENT GETACHEW HUNTER AND GET THE TELEPHONE CONSENT FOR HEMODIALYSIS TODAY.
[2020-06-21] MEDS ORDERED: SODIUM CHL 0.9% 1000 ML BAG XX ONE (07:00)
--- NOTE | 2020-06-21 07:05 | NUR ---
Called the melter operator of the [facility] and informed that he patient has order for dialysis today.
--- NOTE | 2020-06-21 07:19 | NUR ---
Report given to Roseline Neumann, patient is resting not in respiratory distress.
[2020-06-21 09:00] VITALS: BP 130/76
[2020-06-21] MEDS: metOLazone 5 MG TAB PO SCH (10:00)
[2020-06-21] MEDS: AZITHROMYCIN 500MG/ 250ML 250 ML IV SCH (10:06)
[2020-06-21] MEDS: PANTOPRAZOLE 40 MG/10 ML VIAL INJ IV SCH (10:06)
[2020-06-21] MEDS: THIAMINE 100mg/ml INJ (200mg/2ml VIAL) IV SCH (10:06)
[2020-06-21 13:00] VITALS: BP 143/84
--- NOTE | 2020-06-21 15:08 | NUR ---
Patient Heart rate sustaining in 150's. Called JUSTIN Magallon to let her know about patient new heart rate change.JUSTIN magallon saw ekg which showed Afib, she ordered the amiodarone protocol and to consult with cardiology . Patient BP stable 141/82. Will continue to monitor heart rate and will start patient on the amiodarone protocol. Charge nurse aware.
[2020-06-21] MEDS ORDERED: AMIODARONE HCL 150 MG in D5W 5% 100 ML IV ONE (15:15)
[2020-06-21] MEDS ORDERED: AMIODARONE 450mg/250ml AE 250 ML IV SCH ×2 (15:30→21:30)
--- NOTE | 2020-06-21 16:02 | NUR ---
Nutrition Followup Note Pt wt is 159.7 kg Pt is confused, with a constant repetitive cry/scream. Per RN pt would not respond effectively to communicative efforts. Pt is with a Pureed diet appetite is poor aeb ave 38% PO x 2 meals per RN doc. Est energy needs IBW 70 [id number] kcal (25-30 kcal/kg IBW) , Est protein needs: 56-70 g (0.8-1.0 g/kg IBW r/t elev RFT) Will reassess per dry body wt LABS: BUN 99 H, CREAT 4.87 H, GFR 10 L, CA 8.0 L, ALB 2.0 L GI: Pt had 1 BM on 06/19 per RN doc BS: 11 high risk. Refer to wound assessment report for further details PES: 1) Altered nutrition related lab values r.t current chronic medical condition aeb elev RFT hypocalcemia 2) Inadequate PO intake r/t current mental condition aeb pt`s with ALOC and NPO Comments Will continue to monitor PO status, skin status, pertinent labs and weight trends. Will f/u in 2-3 days 1) advance diet as medically feasible 2) consider alternate nutrition support if pt NPO > 48 hrs 3) continue current plan of care
[2020-06-21 17:00] VITALS: BP_SYST 111; BP_SYST 138; BP_SYST 89; BP_DIAS 60; BP_DIAS 70; BP_DIAS 74
--- NOTE | 2020-06-21 17:08 | NUR ---
Patient Blood pressure was 89/71 Called KNOWLEDGE ARCHITECT Melly to let her know she said not to start the amiodarone protocol yet to give albumin first. Before giving albumin I rechecked BP it was 138/60 and 5 minutes after it was 111/74. i let the KNOWLEDGE ARCHITECT know she said to still give the albumin to patient and after to start her on the protocol. I called pharmacy to verify the albumin order.
[2020-06-21] MEDS: ALBUMIN 25% 50 ML IV SCH (17:21)
--- NOTE | 2020-06-21 18:20 | NUR ---
Albumin given to patient . Patient BP 116/66 .Called charge nurse to let her know that I gave the albumin and she can come assist me to start the amiodarone protocol. Awaiting for charge nurse.
[2020-06-21 18:23] VITALS: BP 116/88
--- NOTE | 2020-06-21 18:58 | NUR ---
Called JUSTIN Magallon to let her know that patient converted back to Normal Sinus and sustaining. JUSTIN magallon told me to not give the amiodarone since her heart rhythm is back to normal . That cardiology will come to see her in the morning.
--- NOTE | 2020-06-21 19:05 | NUR ---
scallop binder asked me to call him when Patient Heart rate and rhythm back to normal. Call to let him know he said that he will send a nurse to do dialysis. JUSTIN jimenez.
--- NOTE | 2020-06-21 19:46 | NUR ---
AMIODARONE PROTOCOL HELD PER STEERSMAN KRAFT ORDER.PATIENT CONVERTED BACK TO NORMAL SINUS. MOTOR BRAKEMAN NURSE AWARE AND WILL ENDORSE CARE. WILL CALL STEERSMAN IF ANY CHANGES.
--- NOTE | 2020-06-21 20:00 | NUR ---
RECEIVED PATIENT FROM DAY SHIFT RN. PATIENT RESTING IN BED AND YELLING. NO S/S OF DISTRESS AND PAIN NOTED. REPOSITIONED PATIENT. PATIENT TOLERATED WELL. PATIENT UNRESPONSIVE TO VERBAL QUESTIONS. ROOM IS CLOSED TO THE NURSE'S STATION. SPECIAL MATTRESS BED IN LOWEST LOCKED POSITION WITH SIDE RAILS UP X 2. CALL MARTE WITHIN REACH. ALARM ON. CONTINUE TO MONITOR FOR CHANGES Q1H AND PRN.
[2020-06-21] MEDS ORDERED: EPOETIN ALFA 10,000 UNIT/1 ML VIAL SC ONE (21:00)
--- NOTE | 2020-06-21 21:45 | NUR ---
REPOSITIONED PATIENT. PATIENT TOLERATED WELL. CONTINUE CARE.
--- NOTE | 2020-06-21 23:46 | NUR ---
REPOSITIONED PATIENT. PATIENT TOLERATED WELL. CONTINUE TO MONITOR.
[2020-06-22] MEDS: ALBUMIN 25% 50 ML IV SCH ×2 (01:00→10:34)
[2020-06-22] MEDS: PIPERACILLIN-TAZOB 2.25GM 50 ML IV SCH ×4 (02:28→20:53)
[2020-06-22 05:00] VITALS: BP 114/66
[2020-06-22] MEDS: FUROSEMIDE 100 MG/10ML VIAL IV SCH ×2 (05:55→18:00)
[2020-06-22 06:00] LABS: Basophils # (auto) 0 10 ^3/uL (0-0.2); Basophils % (auto) 0.4 % (0.0-2.0); Eosinophils # (auto) 0.2 10 ^3/uL (0-0.8); Nucleated Red Blood Cells % 0.1 %
[2020-06-22 06:02] LABS: Eosinophils % (auto) 1.3 % (0.0-7.0); Hematocrit 21.7 % (36.0-46.0); Lymphocytes % (auto) 8.4 % (10.0-50.0); Mean Corpuscular Hemoglobin 32.7 pg (28.0-32.0); Mean Corpuscular Hgb Conc. 31.6 g/dL (32.0-36.0); Mean Corpuscular Volume 103.4 fL (80.0-100.0); Monocytes # (auto) 0.5 10 ^3/uL (0-1.3); Monocytes % (auto) 4.7 % (0.0-12.0); Neutrophils # (auto) 9.9 10 ^3/uL (1.6-8.6); Neutrophils % (auto) 85.2 % (37.0-80.0); Platelet Count (auto) 139 10^3/uL (140-450); Red Cell Distribution Width 18.2 % (11.8-14.3); White Blood Cell 11.7 10^3/uL (4.4-10.8)
[2020-06-22 06:21] LABS: Chloride 114 mmol/L (98-107); Potassium 4.5 mmol/L (3.5-5.1); Sodium 144 mmol/L (136-145)
[2020-06-22 06:30] LABS: Alanine Aminotransferase < 6 U/L (13-56); Albumin 2.2 g/dL (3.4-5.0); Alkaline Phosphatase 73 U/L (45-117); Anion Gap 16 (5-15); Aspartate Aminotransferase 19 U/L (15-37); BUN/Creatinine Ratio 19.7; Bilirubin, Total 1.2 mg/dL (0.2-1.0); Carbon Dioxide 14 mmol/L (21-32); GFR African American 10 mL/min; GFR Non-African American 8 mL/min; Glucose 73 mg/dL (74-106); Hemoglobin 6.9 g/dL (12.2-16.2); Total Protein 6.4 g/dL (6.4-8.2)
[2020-06-22 06:38] LABS: Blood Urea Nitrogen 108 mg/dL (7-18)
--- NOTE | 2020-06-22 06:47 | NUR ---
HOSPITALIST Called/paged JUSTIN YBARRA called re:CRITICAL LAB RESULTS, HGB 6.9, AND BUN 108. Waiting for call back. Continue care. Addendum: 06/22/20 at 0649 by Mallika Gautam RN MD CHRISTINE GIMENEZ
--- NOTE | 2020-06-22 07:27 | NUR ---
REPORTED GIVEN TO DAY SHIFT RN. YURY TEMPLETON AWARE PATIENT'S CRITICAL LAB RESULT AND WAITING FOR MD CALL BACK. CONTINUE TO MONITOR.
--- NOTE | 2020-06-22 07:30 | NUR ---
RECEIVED PATIENT FROM SCHOOL PATROL RN . PATIENT RESTING IN BED AND YELLING. NO S/S OF DISTRESS AND PAIN NOTED. REPOSITIONED PATIENT. PATIENT TOLERATED WELL. PATIENT UNRESPONSIVE TO VERBAL QUESTIONS. ROOM IS CLOSED TO THE NURSE'S STATION. SPECIAL MATTRESS BED IN LOWEST LOCKED POSITION WITH SIDE RAILS UP X 2. CALL MARTE WITHIN REACH. ALARM ON. CONTINUE TO MONITOR FOR CHANGES Q1H AND PRN.
[2020-06-22] MEDS ORDERED: SODIUM CHL 0.9% 1000 ML BAG XX ONE (08:15)
[2020-06-22 09:00] VITALS: BP 110/67
[2020-06-22] MEDS: metOLazone 5 MG TAB PO SCH (10:00)
--- NOTE | 2020-06-22 10:30 | NUR ---
Dialysis was administered 1L was removed
[2020-06-22] MEDS: PANTOPRAZOLE 40 MG/10 ML VIAL INJ IV SCH (10:58)
[2020-06-22] MEDS: AZITHROMYCIN 500MG/ 250ML 250 ML IV SCH (10:58)
[2020-06-22] MEDS: THIAMINE 100mg/ml INJ (200mg/2ml VIAL) IV SCH (10:58)
[2020-06-22 13:00] VITALS: BP 120/62
--- NOTE | 2020-06-22 15:50 | NUR ---
JUSTIN FARAH AT BEDSIDE IS AWARE OF 6.9 HGB. SHE TEXTED DESIGN ENGINEERING SPECIALIST CAMILLA , . CAMILLA WANTS TO WAIT FOR NEXT LABS BEFORE TRANSFUSING BLOOD PRODUCTS.
[2020-06-22 17:00] VITALS: BP 98/78
--- NOTE | 2020-06-22 20:20 | NUR ---
PATIENT HAS ATRIAL FIBRILLATION WITH RAPID VENTRICULAR RESPONSE AT 140S BPM. DR. TEJEDA MADE AWARE, AMIODARONE DRIP ORDERED. PATIENT THEN CONVERTED TO NORMAL SINUS RHYTHM AT 73 BPM. EKG OBTAINED AND READ BY DR. TEJEDA. PER MD, CONTINUE WITH IV AMIODARONE DRIP FOR 48 HOURS FOR PROPHYLAXIS REASONS. NO S/S OF DISTRESS NOTED. MEDICATION NOT AVAILABLE FROM PHARMACY, WILL START MEDICATION WHEN AVAILABLE.
[2020-06-22] MEDS ORDERED: AMIODARONE 450mg/250ml AE 250 ML IV SCH (20:45)
[2020-06-22 21:00] VITALS: BP 104/66
[2020-06-22] MEDS ORDERED: EPOETIN ALFA 10,000 UNIT/1 ML VIAL SC ONE (21:00)
[2020-06-22] MEDS ORDERED: AMIODARONE HCL 150 MG in D5W 5% 100 ML IV ONE (21:00)
[2020-06-22] MEDS ORDERED: AMIODARONE HCL (50 MG/ ML) 3 ML VIAL IV ONE (21:40)
[2020-06-22] MEDS: METOPROLOL TARTRATE 25 MG TAB PO SCH (22:59)
[2020-06-23] VITALS (7 sets, daily range): BP systolic 103–129; BP diastolic 63–85
[2020-06-23] MEDS: PIPERACILLIN-TAZOB 2.25GM 50 ML IV SCH ×4 (01:36→20:24)
--- NOTE | 2020-06-23 02:47 | NUR ---
Urine sample sent to lab.
[2020-06-23] MEDS: AMIODARONE 450mg/250ml AE 250 ML IV SCH ×2 (04:25→18:17)
[2020-06-23 05:06] LABS: Protein, Urine 261.92 mg/dL (0.0-11.9)
[2020-06-23 05:21] LABS: Eosinophils # (auto) 0.6 10 ^3/uL (0-0.8); Mean Corpuscular Hemoglobin 33.7 pg (28.0-32.0)
[2020-06-23 05:23] LABS: Basophils # (auto) 0 10 ^3/uL (0-0.2); Basophils % (auto) 0.6 % (0.0-2.0); Eosinophils % (auto) 7.5 % (0.0-7.0); Hematocrit 20.9 % (36.0-46.0); Lymphocytes % (auto) 12.9 % (10.0-50.0); Mean Corpuscular Hgb Conc. 33.1 g/dL (32.0-36.0); Monocytes # (auto) 0.6 10 ^3/uL (0-1.3); Monocytes % (auto) 7.3 % (0.0-12.0); Neutrophils # (auto) 5.5 10 ^3/uL (1.6-8.6); Neutrophils % (auto) 71.7 % (37.0-80.0); Nucleated Red Blood Cells % 0.1 %; Platelet Count (auto) 124 10^3/uL (140-450); Red Blood Cells 2.05 10^6/uL (4.0-5.20); Red Cell Distribution Width 18.1 % (11.8-14.3); White Blood Cell 7.7 10^3/uL (4.4-10.8)
[2020-06-23 05:29] LABS: Hemoglobin 6.9 g/dL (12.2-16.2)
--- NOTE | 2020-06-23 05:33 | NUR ---
Received critical hemoglobin from lab, Dr. Prateek limon. Awaiting call back.
[2020-06-23 05:48] LABS: Calcium 7.9 mg/dL (8.5-10.1); Potassium 3.8 mmol/L (3.5-5.1)
[2020-06-23 05:57] LABS: Albumin 2.2 g/dL (3.4-5.0); BUN/Creatinine Ratio 17.8; Total Protein 6.4 g/dL (6.4-8.2)
[2020-06-23] MEDS: FUROSEMIDE 100 MG/10ML VIAL IV SCH (06:00)
--- NOTE | 2020-06-23 06:33 | NUR ---
Received critical BUN. Dr. Devendra limon, awaiting call back.
--- NOTE | 2020-06-23 06:45 | NUR ---
Received call back from Dr. Ramsay. notified of critical labs. Per , order 1 unit PRBC to be transfused with hemodialysis this morning and hold morning lasix. Spoke with dialysis nurse, HD to be given [id number]. Called lab to complete type and screen.
[2020-06-23] MEDS ORDERED: SODIUM CHL 0.9% 1000 ML BAG XX ONE (07:00)
--- NOTE | 2020-06-23 07:30 | NUR ---
Opening Shift Note Assumed care of patient, awake and alert but disoriented to time, situation and place, attempt to reorient patient but she continuously yells out. No S/S of distress/SOB on 2 LPM via nasal cannula or pain when asked about pain. Instructed on POC and to call for assist PRN, will continue to monitor for changes Q1hr and PRN. Bed in low and locked position, rails up x2, no-slip socks on. Mittens replaced as patient continuously removes them.
--- NOTE | 2020-06-23 08:30 | NUR ---
DIALYSIS NURSE AT BEDSIDE ORDERS FOR DIALYSIS
[2020-06-23] MEDS ORDERED: DOXYCYCLINE 100MG/250ML 250 ML IV SCH (09:30)
[2020-06-23] MEDS: AZITHROMYCIN 500MG/ 250ML 250 ML IV SCH (09:47)
[2020-06-23] MEDS: PANTOPRAZOLE 40 MG/10 ML VIAL INJ IV SCH (09:48)
[2020-06-23] MEDS: THIAMINE 100mg/ml INJ (200mg/2ml VIAL) IV SCH (09:49)
--- NOTE | 2020-06-23 09:50 | NUR ---
JUSTIN FARAH AT BEDSIDE
[2020-06-23] MEDS: METOPROLOL TARTRATE 25 MG TAB PO SCH ×2 (10:00→22:53)
--- NOTE | 2020-06-23 10:01 | NUR ---
BLOOD TRANSFUSION INITIATED AND MANAGED BY DIALYSIS NURSE DURING DIALYSIS TREATMENT PER DR CAMILLA HUNT.
--- NOTE | 2020-06-23 11:18 | NUR ---
DIALYSIS COMPLETED 1.5 L REMOVED PER MANAGER OUTREACH, BP 120/71 HR 73, PATIENT TOLERATED WELL.
--- NOTE | 2020-06-23 15:38 | NUR ---
FAMILY CALL PASSWORD PROVIDED, SPOKE TO PATIENT SON, GETACHEW, UPDATED ON COURSE OF TREATMENT AND PLAN OF CARE. ALL QUESTIONS ANSWERED AND HE VERBALIZES UNDERSTANDING.
--- NOTE | 2020-06-23 16:20 | NUR ---
STOOL SAMPLE SENT
--- NOTE | 2020-06-23 16:54 | NUR ---
DR SAMPSON AT BEDSIDE NOTIFIED OF 50ML URINE OUTPUT THIS SHIFT, NO NEW ORDERS AT THIS TIME.
--- NOTE | 2020-06-23 19:30 | NUR ---
Opening Shift Note Assumed care of patient, awake and alert. No S/S of distress/SOB or pain. Instructed on POC and to call for assist PRN. Bed in lowest locked position, call light within reach, side rails up x2. Will continue to monitor for changes Q1hr and PRN.
[2020-06-24] MEDS: PIPERACILLIN-TAZOB 2.25GM 50 ML IV SCH ×3 (01:57→22:07)
[2020-06-24] MEDS ORDERED: SODIUM CHL 0.9% 1000 ML BAG XX ONE (07:00)
[2020-06-24 07:19] LABS: Hemoglobin 8.4 g/dL (12.2-16.2); Neutrophils # (auto) 5.2 10 ^3/uL (1.6-8.6); White Blood Cell 7.6 10^3/uL (4.4-10.8)
[2020-06-24 07:23] LABS: Basophils # (auto) 0 10 ^3/uL (0-0.2); Basophils % (auto) 0.6 % (0.0-2.0); Eosinophils # (auto) 0.3 10 ^3/uL (0-0.8); Eosinophils % (auto) 4.6 % (0.0-7.0); Hematocrit 25.4 % (36.0-46.0); Lymphocytes # (auto) 1.3 10 ^3/uL (0.4-5.4); Lymphocytes % (auto) 16.7 % (10.0-50.0); Mean Corpuscular Hemoglobin 32.8 pg (28.0-32.0); Mean Corpuscular Volume 99.4 fL (80.0-100.0); Monocytes # (auto) 0.7 10 ^3/uL (0-1.3); Monocytes % (auto) 9.6 % (0.0-12.0); Neutrophils % (auto) 68.5 % (37.0-80.0); Nucleated Red Blood Cells % 0.5 %; Platelet Count (auto) 127 10^3/uL (140-450); Red Blood Cells 2.55 10^6/uL (4.0-5.20); Red Cell Distribution Width 18.2 % (11.8-14.3)
[2020-06-24 07:58] LABS: Albumin 2.2 g/dL (3.4-5.0); Calcium 8.1 mg/dL (8.5-10.1); Potassium 3.7 mmol/L (3.5-5.1)
[2020-06-24 08:00] LABS: BUN/Creatinine Ratio 13.9; Bilirubin, Total 1.4 mg/dL (0.2-1.0); Total Protein 6.7 g/dL (6.4-8.2)
--- NOTE | 2020-06-24 08:00 | NUR ---
DR TEJEDA AT BEDSIDE OK TO DC AMIODARONE DRIP AT THIS TIME, PROCEED WITH PO AMIODARONE FOR RATE CONTROL. NO ADDITIONAL ORDERS.
--- NOTE | 2020-06-24 08:15 | NUR ---
DIALYSIS NURSE AT BEDSIDE
[2020-06-24 09:00] VITALS: BP 119/68
--- NOTE | 2020-06-24 09:50 | NUR ---
PATIENT FAMILY CALL SPOKE TO GETACHEW, PATIENTS SON, PASSWORD PROVIDED, UPDATED ON PLAN OF CARE AND ALL QUESTIONS ANSWERED.
[2020-06-24] MEDS: AMIODARONE HCL 200 MG TAB PO SCH ×2 (09:59→22:07)
[2020-06-24] MEDS: METOPROLOL TARTRATE 25 MG TAB PO SCH ×2 (09:59→22:00)
[2020-06-24] MEDS: THIAMINE 100mg/ml INJ (200mg/2ml VIAL) IV SCH (10:00)
[2020-06-24] MEDS: PANTOPRAZOLE 40 MG/10 ML VIAL INJ IV SCH (10:00)
--- NOTE | 2020-06-24 10:24 | NUR ---
DR FERNÁNDEZ AT BEDSIDE DIALYSIS NURSE NOTIFIED OF POOR FLOW AT BREVARD SITE, PER RN SHE ALSO NOTIFIED DR ROJAS, AWAITING ADDITIONAL ORDERS.
[2020-06-24] MEDS ORDERED: CATHFLO ACTIVASE (ALTEPLASE) 2 MG VIAL IV ONE (10:45)
[2020-06-24] MEDS ORDERED: STERILE WATER 10 ML ONE (10:50)
--- NOTE | 2020-06-24 11:20 | NUR ---
DIALYSIS COMPLETED PATIENT TOLERATED IT WELL 1.5L REMOVED BP 133/76 HR 68. PER DIALYSIS NURSE, JOSEFA HAS CATHFLO TO DWELL IN LINES UNTIL NEXT DIALYSIS.
--- NOTE | 2020-06-24 11:47 | NUR ---
EEG-UNABLE TO PERFORM ELECTROENCEPHALOGRAM. PT UNABLE TO COOPERATE.
--- NOTE | 2020-06-24 12:39 | NUR ---
Nutrition Followup Note Wt: 159.7 kg Pt was on HD moaning/sleeping with no family by bedside. pt with no distress noted per nursing. Pt is with a Pureed diet with inadequate PO of < 50% x 5 per RN doc. Est energy needs IBW 70 [id number] kcal (30-33 kcal/kg IBW) , Est protein needs: 84-98 g (1.2-1.4 g/kg IBW r/t HD) Will reassess per dry body wt. reassessed as pt now on HD LABS:BUN 61 H CREAT 4.4 H MARQUITA 1.4 H ALB 2.2 L CA 8.1 L GI: Pt had 2 BM today per RN doc BS: 15 mod risk. Refer to wound assessment report for further details PES: 1) Altered nutrition related lab values r.t current chronic medical condition aeb elev RFT hypocalcemia 2) Inadequate PO intake r/t current mental condition aeb pt`s with ALOC and NPO Comments Will continue to monitor PO status, skin status, pertinent labs and weight trends. Will f/u in 3-5 days 1) consider renal std along with current diet. 2) consider prostat 1 packet bid. 3) continue current plan of care
[2020-06-24] MEDS: AZITHROMYCIN 500MG/ 250ML 250 ML IV SCH (12:42)
[2020-06-24 13:00] VITALS: BP 106/67
--- NOTE | 2020-06-24 16:44 | NUR ---
assessment Patient is a 65 year old female who is confused. Per patients son Esteban prior to admission patient lived home with him and needed assistance with driving and cooking. Esteban is patients [facility] caregiver. Patients PCP is Dr Vincent in [place]. Patient has a fww, but only uses it when she goes out of the house. Esteban informed me he feels patient will need SNF for rehab prior to returning home on discharge. Patient has no advanced directive or POA. I informed Esteban I will continue to monitor and follow up as appropriate for any post discharge needs. Esteban verbalized understanding. Addendum: 06/24/20 at 1650 by Monica LEWIS Amended: Links added.
[2020-06-24 16:52] VITALS: BP 103/60
--- NOTE | 2020-06-24 17:30 | NUR ---
JUSTIN FARAH AT BEDSIDE
--- NOTE | 2020-06-24 19:30 | NUR ---
Opening Shift Note Assumed care of patient, awake and alert to self. No S/S of distress/SOB or pain. Instructed on POC and to call for assist PRN. Bed in lowest locked position, call light within reach, side rails up x2, fall precautions in place. Will continue to monitor for changes Q1hr and PRN.
[2020-06-24] MEDS: DAPTOmycin 500 MG in SODIUM CHL 0.9% 50 ML IV SCH (20:00)
[2020-06-24 22:00] VITALS: BP 110/61
[2020-06-25] VITALS (7 sets, daily range): BP systolic 98–129; BP diastolic 50–76
[2020-06-25] MEDS: PIPERACILLIN-TAZOB 2.25GM 50 ML IV SCH ×3 (05:24→22:00)
[2020-06-25 06:36] LABS: Basophils # (auto) 0 10 ^3/uL (0-0.2); Hemoglobin 8.3 g/dL (12.2-16.2); Nucleated Red Blood Cells % 0.1 %; White Blood Cell 6.2 10^3/uL (4.4-10.8)
[2020-06-25 06:38] LABS: Basophils % (auto) 0.8 % (0.0-2.0); Eosinophils # (auto) 0.5 10 ^3/uL (0-0.8); Eosinophils % (auto) 7.7 % (0.0-7.0); Hematocrit 25.2 % (36.0-46.0); Lymphocytes # (auto) 0.9 10 ^3/uL (0.4-5.4); Lymphocytes % (auto) 14.9 % (10.0-50.0); Mean Corpuscular Hemoglobin 32.8 pg (28.0-32.0); Mean Corpuscular Hgb Conc. 32.9 g/dL (32.0-36.0); Mean Corpuscular Volume 99.6 fL (80.0-100.0); Monocytes # (auto) 0.7 10 ^3/uL (0-1.3); Monocytes % (auto) 10.9 % (0.0-12.0); Neutrophils # (auto) 4.1 10 ^3/uL (1.6-8.6); Neutrophils % (auto) 65.7 % (37.0-80.0); Platelet Count (auto) 115 10^3/uL (140-450); Red Blood Cells 2.53 10^6/uL (4.0-5.20); Red Cell Distribution Width 18.2 % (11.8-14.3)
--- NOTE | 2020-06-25 07:30 | NUR ---
Opening shift Assumed care of patient, awake and alert to self. No S/S of distress/SOB, or pain. Instructed on POC and to call for assist PRN. Fall precautions in place and call light within reach. Will continue to monitor for changes Q1hr and PRN.
--- NOTE | 2020-06-25 08:17 | NUR ---
DR TEJEDA AT BEDSIDE RECOMMEND AMIODARONE 200 MG PO DAILY ON DISCHARGE
[2020-06-25] MEDS: PANTOPRAZOLE 40 MG/10 ML VIAL INJ IV SCH (10:07)
[2020-06-25] MEDS: THIAMINE 100mg/ml INJ (200mg/2ml VIAL) IV SCH (10:07)
[2020-06-25] MEDS: AMIODARONE HCL 200 MG TAB PO SCH ×2 (10:07→22:00)
[2020-06-25] MEDS: AZITHROMYCIN 500MG/ 250ML 250 ML IV SCH (10:08)
[2020-06-25] MEDS: METOPROLOL TARTRATE 25 MG TAB PO SCH ×2 (10:09→22:00)
--- NOTE | 2020-06-25 10:24 | NUR ---
WOUND CARE NOTE: Wound care in to see patient for reevaluation of wounds and skin integrity monitoring. Patient continue resting in Bariatric air bed in Rm. 278A. Patient is awake, alert but not fully oriented. Patient appears to be in no pain using Valentine Estrada Faces Pain Scale. She's max assist in turning and repositioning. Her Bebeto score is 14. Skin/wound assessment done with the assistance of patient's nurse, JARETH Campo. Patient's L groin skin tear (0.8x5cm)intertrigo is red with pink surrounding skin. Patient is incontinent and passed moderate amount of loose stools. Margarita care given and bilateral groin cleansed with mild soap and water. Applied Antifungal clear to groin skin folds. Applied Barrier cream to sacral, buttocks. Full linen changed. Rt forearm skin tear/abrasion is clean and dry with pink surrounding skin, left open to air. New photograph of wounds are taken for reference. Repositioned patient for comfort on her back,redistributed pressure points with pillows. Patient tolerated well. JARETH Campo at bedside. RECOMMENDATION:Continuation of all wound care orders MD prescribed. Continue with skin/wound plan of care, continue monitoring by wound care while patient is hospitalized. Addendum: 06/25/20 at 1752 by Awilda Abreu RN Amended: Links added.
--- NOTE | 2020-06-25 14:30 | NUR ---
DR RICHARDS AT BEDSIDE ORDERS FOR HEPATITIS B AND C, RADIOLOGY CONSULT FOR TUNNELED DIALYSIS CATHETER, PLANS FOR DIALYSIS TOMORROW. Addendum: 06/25/20 at 1523 by PAUL HUMPHREY RN RN DR ROJAS
[2020-06-25 15:40] LABS: Albumin 2.1 g/dL (3.4-5.0); Bilirubin, Direct 0.7 mg/dL (0-0.2); Bilirubin, Total 1.1 mg/dL (0.2-1.0); Total Protein 6.4 g/dL (6.4-8.2)
--- NOTE | 2020-06-25 17:06 | NUR ---
PICC LINE DRESSING CHANGE USING CLEAN STERILE TECHNIQUE PICC LINE DRESSING CHANGED. PATIENT TOLERATED IT WELL.
[2020-06-25] MEDS ORDERED: LEVE500T32 PO (18:48)
[2020-06-25] MEDS ORDERED: PANT40TA2 PO (18:48)
--- NOTE | 2020-06-25 21:50 | NUR ---
SB rate 54 on monitor. A&Ox4. Resp unlabored. Skin warm and dry.
--- NOTE | 2020-06-25 21:51 | NUR ---
A&Ox4 Resp unlabored. Skin warm and dry. SB rate 54 on laboratory monitor. ARLET Addendum: 06/25/20 at 2157 by MACKENZIE SHANNON RN RN above note entered in error.SB rate 54 on monitor. asleep, per report oriented 1. VSS NAD resp unlabored, skin warm and dry, ARLET medina catheter in place
--- NOTE | 2020-06-25 23:37 | NUR ---
HR 54-57 BP 108/72 amiodarone and metoprolol ordered. called MD Partida and JUSTIN Pickard for hold parameters. NAD TM
[2020-06-26] VITALS (7 sets, daily range): BP systolic 108–118; BP diastolic 58–75
--- NOTE | 2020-06-26 02:37 | NUR ---
Hold one dose metoprolol and one dose amiodarone per telephone order Dr. Chandra. Pt remains in a fib rate 55 no changes to pt condition
[2020-06-26] MEDS: PIPERACILLIN-TAZOB 2.25GM 50 ML IV SCH ×3 (06:20→22:42)
--- NOTE | 2020-06-26 06:47 | NUR ---
Pt awake and alert, VSS a fib rate 56 on monitor, makes pleasant confused conversation with clear speech. Linens and gown clean and dry. RUE PICC clear and infusing. Jesus Kaminski site clear, medina in place. No changes to pt condition. Dialysis nurse will arrive around 900
[2020-06-26] MEDS ORDERED: SODIUM CHL 0.9% 1000 ML BAG XX ONE (07:00)
[2020-06-26 07:21] LABS: Basophils # (auto) 0 10 ^3/uL (0-0.2); Basophils % (auto) 0.6 % (0.0-2.0); Eosinophils # (auto) 0.5 10 ^3/uL (0-0.8); Eosinophils % (auto) 7.2 % (0.0-7.0); Hematocrit 25.1 % (36.0-46.0); Hemoglobin 8.4 g/dL (12.2-16.2); Lymphocytes % (auto) 14.5 % (10.0-50.0); Mean Corpuscular Hemoglobin 33.3 pg (28.0-32.0); Mean Corpuscular Hgb Conc. 33.4 g/dL (32.0-36.0); Mean Corpuscular Volume 99.6 fL (80.0-100.0); Monocytes # (auto) 0.8 10 ^3/uL (0-1.3); Monocytes % (auto) 11.4 % (0.0-12.0); Neutrophils # (auto) 4.8 10 ^3/uL (1.6-8.6); Neutrophils % (auto) 66.3 % (37.0-80.0); Nucleated Red Blood Cells % 0.1 %; Platelet Count (auto) 132 10^3/uL (140-450); Red Blood Cells 2.51 10^6/uL (4.0-5.20); Red Cell Distribution Width 17.9 % (11.8-14.3); White Blood Cell 7.2 10^3/uL (4.4-10.8)
[2020-06-26 07:41] LABS: Calcium 8.1 mg/dL (8.5-10.1); Magnesium 2.4 mg/dL (1.6-2.6)
[2020-06-26 07:49] LABS: BUN/Creatinine Ratio 11.1; Bilirubin, Total 1.1 mg/dL (0.2-1.0); Total Protein 6.6 g/dL (6.4-8.2)
[2020-06-26 07:52] LABS: Potassium 2.9 mmol/L (3.5-5.1)
--- NOTE | 2020-06-26 07:59 | NUR ---
CRITICAL LAB POTASSIUM 2.9, PAGE TO JUSTIN FARAH TO NOTIFY, NO NEW ORDERS. WILL NOTIFY DIALYSIS NURSE TO ADJUST K BATH NEEDED.
--- NOTE | 2020-06-26 08:00 | NUR ---
Opening Shift Note Assumed care of patient, pt resting comfortably. No S/S of distress/SOB or pain. Instructed on POC and to call for assist PRN, call light within reach, bed is locked and in lowest position. PICC line dry, intact, and patent, flushed with normal saline. Will continue to monitor for changes Q1hr and PRN.
--- NOTE | 2020-06-26 08:50 | NUR ---
Call from Radiologist Received a call from radiology dept. for NPO for possible tunneled catheter for dialysis later today. NPO status maintained and tray removed from the pt's room.
--- NOTE | 2020-06-26 09:55 | NUR ---
Dialysis Nurse at Bedside Dialysis nurse is present at bedside
[2020-06-26] MEDS: PANTOPRAZOLE 40 MG/10 ML VIAL INJ IV SCH (10:00)
[2020-06-26] MEDS: METOPROLOL TARTRATE 25 MG TAB PO SCH ×2 (10:00→23:07)
[2020-06-26] MEDS: THIAMINE 100mg/ml INJ (200mg/2ml VIAL) IV SCH (10:00)
[2020-06-26 10:18] LABS: INR 1.29 (0.9-1.15); Partial Thromboplastin Time 34.5 sec (23.0-31.2)
[2020-06-26] MEDS: AZITHROMYCIN 500MG/ 250ML 250 ML IV SCH (12:32)
--- NOTE | 2020-06-26 13:12 | NUR ---
DIALYSIS COMPLETED PATIENT TOLERATED IT WELL. 2.8 L REMOVED BP 106/54 HR 67, PATIENT TOLERATED IT WELL.
[2020-06-26 13:20] LABS: Calcium 7.8 mg/dL (8.5-10.1); Potassium 3.2 mmol/L (3.5-5.1)
--- NOTE | 2020-06-26 13:20 | NUR ---
DR ROJAS AT BEDSIDE
--- NOTE | 2020-06-26 14:05 | NUR ---
PATIENT OFF UNIT FOR PROCEDURE TUNNEL DIALYSIS CATHETER
[2020-06-26] MEDS ORDERED: LIDOCAINE 2%HCL (LOCAL ANESTH.) INJ 20ML MDV ONE (14:13)
[2020-06-26] MEDS ORDERED: diphenhdrAMINE HCL 50 MG/1 ML VL ONE (14:14)
[2020-06-26] MEDS ORDERED: fentaNYL CITRATE 100 MCG/2 ML VL ONE (14:21)
[2020-06-26] MEDS ORDERED: MIDAZOLAM HCL 1MG/1ML-2 ML VIAL ONE (14:21)
[2020-06-26] MEDS ORDERED: HEPARIN SODIUM (PORCINE) 5000 UNITS/ML 1ML VIAL ONE (14:23)
--- NOTE | 2020-06-26 14:27 | NUR ---
pt arrived in cathlab rm 1 pt yelling, "Oww, help, help" all the way from room to cathlab. pt oriented to self; FC in place draining to gravity; temporary DM catheter in place on left jugular, minimal blood oozing from site. aware.
--- NOTE | 2020-06-26 15:15 | NUR ---
pt transferred to room without incident. Pt within baseline, VS stable. Endorsed to primary RN at bedside.
--- NOTE | 2020-06-26 15:32 | NUR ---
PATIENT BACK ON UNIT DRESSING TO RIGHT UPPER CHEST CLEAN DRY INTACT. bED IN LOW AND LOCKED POSITION, RAILS UP X3, ON OXYGEN 2 LPM FOR COMFORT. PATIENT SHOUTING HELP, ATTEMPT TO REORIENT HOWEVER PATIENT REMAINS TO YELL. CALL LIGHT WITHIN REACH. WILL CONTINUE TO MONITOR.
[2020-06-26] MEDS ORDERED: POTASSIUM CHL 20MEQ/100ML 100 ML IV ONE (15:45)
--- NOTE | 2020-06-26 16:20 | NUR ---
JUSTIN FARAH AT BEDSIDE
[2020-06-26] MEDS: DAPTOmycin 500 MG in SODIUM CHL 0.9% 50 ML IV SCH (18:37)
[2020-06-26] MEDS ORDERED: EPOETIN ALFA 4,000 UNIT/ML VL SC ONE (21:00)
[2020-06-26] MEDS ORDERED: AMIODARONE HCL 200 MG TAB PO SCH (22:00)
[2020-06-27 05:00] VITALS: BP 114/78
[2020-06-27] MEDS: PIPERACILLIN-TAZOB 2.25GM 50 ML IV SCH ×3 (06:11→22:07)
[2020-06-27 07:11] LABS: Hemoglobin 8.2 g/dL (12.2-16.2)
[2020-06-27 07:14] LABS: Mean Corpuscular Hemoglobin 32.3 pg (28.0-32.0); Mean Corpuscular Hgb Conc. 32.8 g/dL (32.0-36.0); Mean Corpuscular Volume 98.7 fL (80.0-100.0); Platelet Count (auto) 132 10^3/uL (140-450); Red Blood Cells 2.53 10^6/uL (4.0-5.20); Red Cell Distribution Width 17.4 % (11.8-14.3); White Blood Cell 6.7 10^3/uL (4.4-10.8)
[2020-06-27 07:25] LABS: Band Neutrophils % (manual) 0; Basophils % (manual) 0 (0.0-2.0); Blast Cells 0; Metamyelocytes % 0; Myelocytes % 0; Promyelocytes % 0; Reactive Lymphocytes 0
[2020-06-27 07:28] LABS: Potassium 3.4 mmol/L (3.5-5.1)
[2020-06-27 07:35] LABS: BUN/Creatinine Ratio 9.3; Bilirubin, Total 1.2 mg/dL (0.2-1.0); Calcium 8.2 mg/dL (8.5-10.1); Magnesium 2.1 mg/dL (1.6-2.6); Total Protein 6.5 g/dL (6.4-8.2)
--- NOTE | 2020-06-27 08:00 | NUR ---
Opening Shift Note Assumed care of patient, patient awake and alert but remains confused and frequently yelling help even right after being re-orientated while this RN remains in room at bedside. Patient is laying in semi barney position, side rails up x3, bed alarm set for safety, bed in lowest locked position, with call light in place. Tracy in place, pt remain oliguric. Patient receives HD. Patient is currently on 2 L nc with even and unlabored respirations. No S/S of distress/SOB or pain at this time. Attempted to turn patient, pt just started yelling "No". Instructed on POC, pt unable to understand and to call for assist PRN, will continue to monitor for changes Q1hr and PRN.
[2020-06-27 08:04] LABS: Eosinophils % (manual) 2 (0-7); Lymphocytes % (manual) 24 (10.0-50.0); Monocytes % (manual) 10 (0-12)
--- NOTE | 2020-06-27 09:53 | NUR ---
REPORT GIVEN REPORT GIVEN TO ELY TEMPLETON, CARE ENDORSED.
--- NOTE | 2020-06-27 10:20 | NUR ---
DR. CONNORS PER DR. CONNORS CARDIOLOGY PATIENT AMIODARONE ORDER WILL BE CHANGED FROM 200MG TO 100MG. NEW ORDERS SUBMITTED. WILL CONTINUE WITH POC.
[2020-06-27] MEDS: THIAMINE 100mg/ml INJ (200mg/2ml VIAL) IV SCH (12:21)
[2020-06-27] MEDS: PANTOPRAZOLE 40 MG/10 ML VIAL INJ IV SCH (12:21)
[2020-06-27] MEDS: METOPROLOL TARTRATE 25 MG TAB PO SCH ×2 (12:21→22:09)
[2020-06-27 13:00] VITALS: BP 141/76
[2020-06-27 13:39] LABS: Hepatitis A Ab IgM Negative; Hepatitis B Core IgM Negative; Hepatitis B Surface Antigen Negative (Negative); Hepatitis C Antibody Negative (Negative)
[2020-06-27 16:30] VITALS: BP 120/76
--- NOTE | 2020-06-27 16:41 | NUR ---
Nutrition Followup Note Wt: 151.2 kg Pt was sleeping with no family by bedside. Pt with no distress noted per nursing. Pt is with a Pureed diet with inadequate PO of < 25% x 3 per RN doc. If pt appetite does not improve consider EN nutrition support Nepro with Carb Steady 1.8 @ 50ml/hr goal rate as tolerated and per MD approval. Est energy needs IBW 70 [id number] kcal (30-33 kcal/kg IBW) , Est protein needs: 84-98 g (1.2-1.4 g/kg IBW r/t HD) Will reassess per dry body wt. reassessed as pt now on HD LABS: BUN 40 H CREAT 4.29 H, ALB 2.0 L CA 8.2 L GI: Pt had no recorded BM today per RN doc BS: 13 mod risk. Refer to wound assessment report for further details PES: 1) Altered nutrition related lab values r.t current chronic medical condition aeb elev RFT hypocalcemia 2) Inadequate PO intake r/t current mental condition aeb pt`s with ALOC and NPO Comments Will continue to monitor PO status, skin status, pertinent labs and weight trends. Will f/u in 3-5 days 1) Consider renal std along with current diet. 2) Consider prostat 1 packet bid. 3) If pt appetite does not improve consider EN nutrition support Nepro with Carb Steady 1.8 @ 50ml/hr goal rate as tolerated and per MD approval 4) Continue current plan of care
--- NOTE | 2020-06-27 19:30 | NUR ---
Opening Shift Note Assumed care of patient. Patient awake and alert, oriented to self. No s/s of respiratory distress, respirations are regular and non-labored on 2 LPM NC. Bed in lowest semi barney position and locked, side rails up x3, bed alarm ON for safety, call light is within reach. Tracy is in place and patent. Patient reoriented, instructed on POC and to call for assistance as needed. Patient unable to comprehend. Continue yelling "help" and "that's enough no more". Will continue to monitor for changes Q1hr and PRN.
[2020-06-27 20:00] VITALS: BP 104/65
[2020-06-27 22:00] VITALS: BP 104/65
[2020-06-27] MEDS: AMIODARONE HCL 200 MG TAB PO SCH (22:08)
--- NOTE | 2020-06-28 00:08 | NUR ---
Assumed Care / Opening Shift Note Assumed care of patient from previous RN (due to change in assignment). Upon entering room, patient's eyes closed and awakens to voice. No s/s of distress/SOB/pain. Fall and safety precautions in place. Call light within reach. Will continue to monitor q1h and prn.
[2020-06-28 05:00] VITALS: BP 111/61
[2020-06-28] MEDS: PIPERACILLIN-TAZOB 2.25GM 50 ML IV SCH ×2 (05:31→14:08)
[2020-06-28 05:51] LABS: Basophils # (auto) 0.1 10 ^3/uL (0-0.2); Eosinophils # (auto) 0.3 10 ^3/uL (0-0.8); Eosinophils % (auto) 5.4 % (0.0-7.0); Hematocrit 25.1 % (36.0-46.0); Hemoglobin 8.1 g/dL (12.2-16.2); Lymphocytes # (auto) 1.3 10 ^3/uL (0.4-5.4); Lymphocytes % (auto) 20.6 % (10.0-50.0); Mean Corpuscular Hemoglobin 32.8 pg (28.0-32.0); Mean Corpuscular Hgb Conc. 32.4 g/dL (32.0-36.0); Mean Corpuscular Volume 101.1 fL (80.0-100.0); Monocytes # (auto) 0.8 10 ^3/uL (0-1.3); Monocytes % (auto) 13.1 % (0.0-12.0); Neutrophils # (auto) 3.7 10 ^3/uL (1.6-8.6); Neutrophils % (auto) 59.9 % (37.0-80.0); Platelet Count (auto) 125 10^3/uL (140-450); Red Blood Cells 2.48 10^6/uL (4.0-5.20); White Blood Cell 6.2 10^3/uL (4.4-10.8)
[2020-06-28 06:10] LABS: Albumin 1.9 g/dL (3.4-5.0); Calcium 8.2 mg/dL (8.5-10.1); Magnesium 2.3 mg/dL (1.6-2.6); Potassium 3.2 mmol/L (3.5-5.1)
[2020-06-28 06:13] LABS: BUN/Creatinine Ratio 8.7; Bilirubin, Total 1.1 mg/dL (0.2-1.0); Total Protein 6.3 g/dL (6.4-8.2)
--- NOTE | 2020-06-28 07:30 | NUR ---
Opening Shift Note Assumed care of patient, awake and alert. No S/S of distress/SOB or pain. Instructed on POC and to call for assist PRN, will continue to monitor for changes Q1hr and PRN. Bed is locked and in lowest position. Call light within reach.
[2020-06-28 09:00] VITALS: BP 111/59
--- NOTE | 2020-06-28 10:40 | NUR ---
PAGED JUSTIN FARAH REGARDING PATIENT PENDING DISCHARGE TO SNF AND DIALYSIS. NEW ORDERS RECEIVED REGARDING EDUCATION INTERN. WILL AWAIT EDUCATION INTERN CALL BACK.
[2020-06-28] MEDS: PANTOPRAZOLE 40 MG/10 ML VIAL INJ IV SCH (11:08)
[2020-06-28] MEDS: METOPROLOL TARTRATE 25 MG TAB PO SCH (11:08)
[2020-06-28] MEDS: THIAMINE 100mg/ml INJ (200mg/2ml VIAL) IV SCH (11:08)
--- NOTE | 2020-06-28 11:15 | NUR ---
PAGED DR. ROJAS REGARDING DIALYSIS ORDER DUE TO PATIENTS PENDING DISCHARGE, ABNORMAL LAB VALUES AND TUNNEL CATH DRESSING CHANGE. WILL AWAIT PHONE CALL.
--- NOTE | 2020-06-28 11:18 | NUR ---
DR. CRYSTAL ROJAS RETURNED CALL REGARDING DIALYSIS, LAB VALUES AND TUNNEL CATH DRESSING CHANGE. PER DR. ROJAS PATIENT DID NOT HAVE OR REQUIRE ORDER FOR DIALYSIS UNTIL TOMORROW. NOTIFIED DR. ROJAS OF PENDING DISCHARGE. NO NEW ORDERS RECEIVED PER ABNORMAL LAB VALUES. PER DR. ROJAS DRESSING CAN BE CHANGED FOR TUNNEL CATH. WILL CONTINUE WITH POC.
--- NOTE | 2020-06-28 11:52 | NUR ---
Tunnel cath Dressing Changes Tunnel cath dressing change done with a sterile technique. Cleansed with chloral prep scrub and Bio-patch changed. Area around dressing cleaned with sterile water and gauze for old blood. Occlusive dressing applied. Dr. Rodarte aware of oozing from tunnel cath which required dressing change. Will continue to monitor dressing.
--- NOTE | 2020-06-28 12:30 | NUR ---
PHONE CALL RECEIVED FROM SABINO THE INTAKE STAFF OF [facility] TO GET PATIENT CHAIR TIME ONCE PATIENT IS DISCHARGED. WILL PAGE ON TRAILHEAD CONSTRUCTION WORKER TO SEND REQUIRED PAPERWORK FOR PATIENT. WILL AWAIT CALL BACK FROM TRAILHEAD CONSTRUCTION WORKER.
[2020-06-28 12:38] VITALS: BP 121/59
--- NOTE | 2020-06-28 12:58 | NUR ---
STEPHANE CROWLEY PHONE CALL RECEIVED FROM STEPHANE CROWLEY PANEL MONITOR PROFILER REGARDING PATIENT SNF TRANSFER AND OUTPATIENT DIALYSIS TIMES. NOTIFIED STEPHANE CROWLEY PATIENT WAS PREVIOUSLY AT [facility] SNF AND FAMILY WOULD LIKE PATIENT TO RETURN TO FACILITY. [facility] REQUIRES INTAKE INFORMATION TO SET UP OUT PATIENT CHAIR TIME. STEPHANE CROWLEY CALLED [facility] REGARDING PATIENT BED. WILL FAX REQUIRING INFORMATION TO [facility] AT [phone]. WILL CALL [facility] AT [phone] TO CONFIRM PAPERWORK WAS RECEIVED. ONCE BED IS AVAILABLE [facility] WILL GIVE A CALL BACK WITH INFORMATION. REGARDING [facility] DIALYSIS INFORMATION WILL BE FAXED TO SABINO SLIDE FORMING MACHINE TENDER AT [phone]. WILL CALL SABINO DA MANDA COORDINATOR AT [phone] TO CONFIRM PAPERWORK RECEIVED. WILL OBTAIN NEW COVID EXAM AND FAX RESULTS TO [facility] AND [facility]OLMAN.
--- NOTE | 2020-06-28 15:00 | NUR ---
BRANDON TIGIST SWAB COLLECTED AND WALKED TO LAB. WILL AWAIT RESULTS.
--- NOTE | 2020-06-28 16:19 | NUR ---
[facility] PHONE CALL MADE TO [facility] SPOKE TO SABINO COORDINATOR REGARDING CHAIR TIME. PER SABINO PATIENT PAPERWORK HAS NOT BEEN RECEIVED. FAXED PAPERWORK TWICE AND SABINO STILL DID NOT RECEIVE PAPERWORK. PER SABINO CHAIR TIME WILL HAVE TO BE SET UP WEDNESDAY SINCE SHE DOES NOT WORK WEEKENDS. WILL PAGE DR. ROJAS TO UPDATE AND ANIMAL TECH GAGAN WELL TO DETERMINE IF DISCHARGED WILL BE PLACED ON HOLD.
[2020-06-28 17:00] VITALS: BP 123/81
--- NOTE | 2020-06-28 17:16 | NUR ---
[facility] PHONE CALL MADE TO [facility] TO FOLLOW UP ON PATIENT BED. PER [facility] RAPID TIGIST NEEDED TO BE APPROVED BY FACILITY, RAPID TIGIST RESULTS FAXED TO FACILITY AND RECEIVED, CHAIR TIME WILL BE FOR WEDNESDAY AT 1PM AT [facility]. PER [facility] CONTROL TOWER OPERATOR THERE IS NO BARIATRIC BED AVAILABLE FOR PATIENT. PATIENT DISCHARGE WILL BE PLACED ON HOLD FOR 06/29/20. JUSTIN FARAH NOTIFIED OF HOLD AND DISCHARGE WILL BE SET UP FOR 06/29/20. WILL FOLLOW UP WITH DISCHARGE TOMORROW MORNING.
[2020-06-28] MEDS: DAPTOmycin 500 MG in SODIUM CHL 0.9% 50 ML IV SCH (19:01)
--- NOTE | 2020-06-28 19:35 | NUR ---
OPENING SHIFT NOTE PT IS RESTING IN BED WITH EYES CLOSED AND RESP RATE IS EVEN AND UNLABORED. NO S/S OF ANY DISTRESS NOTED AT THIS TIME. PT IS LYING ON SPECIALTY AIR MATTRESS ON RIGHT TILT AT THIS TIME. SIDE RAILS UP X2 AND BED IS IN LOW POSITION.
[2020-06-28 22:00] VITALS: BP 116/63
[2020-06-29] MEDS: PIPERACILLIN-TAZOB 2.25GM 50 ML IV SCH ×4 (00:17→22:24)
[2020-06-29] MEDS: AMIODARONE HCL 200 MG TAB PO SCH ×2 (00:17→22:25)
[2020-06-29] MEDS: METOPROLOL TARTRATE 25 MG TAB PO SCH ×3 (00:18→22:00)
[2020-06-29 05:00] VITALS: BP 103/62
[2020-06-29 06:27] LABS: Hemoglobin 7.8 g/dL (12.2-16.2); White Blood Cell 7.7 10^3/uL (4.4-10.8)
[2020-06-29 06:30] LABS: Basophils # (auto) 0.1 10 ^3/uL (0-0.2); Basophils % (auto) 0.9 % (0.0-2.0); Eosinophils # (auto) 0.3 10 ^3/uL (0-0.8); Eosinophils % (auto) 4.2 % (0.0-7.0); Hematocrit 24.2 % (36.0-46.0); Lymphocytes % (auto) 13.2 % (10.0-50.0); Mean Corpuscular Hemoglobin 32.7 pg (28.0-32.0); Mean Corpuscular Hgb Conc. 32.5 g/dL (32.0-36.0); Mean Corpuscular Volume 100.8 fL (80.0-100.0); Monocytes # (auto) 0.7 10 ^3/uL (0-1.3); Neutrophils # (auto) 5.6 10 ^3/uL (1.6-8.6); Neutrophils % (auto) 72.7 % (37.0-80.0); Platelet Count (auto) 124 10^3/uL (140-450); Red Cell Distribution Width 17.4 % (11.8-14.3)
[2020-06-29 06:50] LABS: Albumin 1.8 g/dL (3.4-5.0); Calcium 7.6 mg/dL (8.5-10.1); Magnesium 2.2 mg/dL (1.6-2.6); Potassium 3.1 mmol/L (3.5-5.1)
[2020-06-29 06:55] LABS: BUN/Creatinine Ratio 8.9
[2020-06-29] MEDS ORDERED: POTASSIUM CHL 20MEQ/100ML 100 ML IV ONE (07:30)
--- NOTE | 2020-06-29 07:30 | NUR ---
Opening Shift Note Assumed care of patient, awake and alert to name and . No S/S of distress/SOB or pain. Instructed on POC and to call for assist PRN, will continue to monitor for changes Q1hr and PRN. Bed is locked and in lowest position. Call light within reach.
[2020-06-29 09:00] VITALS: BP 117/62
--- NOTE | 2020-06-29 09:16 | NUR ---
PHONE CALL MADE TO [facility] AT [phone] REGARDING AN UPDATE ON PATIENT BED AND TRANSPORTATION. PER [facility] THEY WILL CALL BACK ONCE THEY DETERMINE IF BED IS AVAILABLE. WILL AWAIT CALL BACK.
--- NOTE | 2020-06-29 10:21 | NUR ---
Weekend applications intern-I received a page from nurse Manrique asking for an update on patient being transferred to [facility]. I called [facility] and left message for Admissions asking about bed availability.
[2020-06-29] MEDS: PANTOPRAZOLE 40 MG/10 ML VIAL INJ IV SCH (10:44)
[2020-06-29] MEDS: THIAMINE 100mg/ml INJ (200mg/2ml VIAL) IV SCH (10:44)
--- NOTE | 2020-06-29 10:48 | NUR ---
I called [facility] and spoke with Niecy in Admissions-she said Krystyna is working on getting patient a bariatric bed-they do not have one available yet and can not accept patient until they have one ready. Per Niecy she will have Krystyna give me a call back with an update.
--- NOTE | 2020-06-29 10:50 | NUR ---
PHONE CALL RECEIVED FROM [facility] REGARDING PATIENT SNF TRANSFER. PER [facility] THEY ARE STILL WORKING ON GETTING A SPECIALTY BED FOR THE PATIENT. TRANSPORTATION HAS NOT BEEN SET UP. WILL AWAIT CALL BACK.
[2020-06-29 13:00] VITALS: BP 106/60
--- NOTE | 2020-06-29 13:20 | NUR ---
PHONE CALL RECEIVED FROM [facility] STATING THEY ARE UNABLE TO FIND A BED. THEY STATED PATIENT DOES NOT HAVE A BED HOLD. PATIENT CAN BE TRANSFERRED TO ANOTHER FACILITY. PER [facility] THEY ARE NOT ABLE TO TAKE PATIENT THIS WEEKEND. WILL NOTIFY JUSTIN FARAH. WILL AWAIT NEW ORDERS.
--- NOTE | 2020-06-29 14:00 | NUR ---
I received a page from Nurse Hilaria letting me know that [facility] will not have a bed this weekend for patient. I faxed SNF order/clinical packet to [facility] and Shannon Guevara.
--- NOTE | 2020-06-29 15:54 | NUR ---
I called [facility] and spoke with Codi, she said this patient was there before coming to [facility], but that the bed hold is up and patient would be considered a new admission. Per Codi there is no one there to speak with in admissions to authorize this patient coming back to them, it would have to be done on Wednesday. Per Codi, if patient was on a special bed with them that it should still be there.
--- NOTE | 2020-06-29 16:00 | NUR ---
PAGED FOR [facility]I TABLE INSPECTOR ON UPDATE OF SNF TRANSFER. WILL AWAIT CALL BACK.
[2020-06-29 16:42] VITALS: BP 130/75
--- NOTE | 2020-06-29 16:53 | NUR ---
PHONE CALL RECEIVED FROM [facility] [employer] REGARDING PENDING SNF TRANSFER. PER MATI THERE IS NO SNF PLACEMENT AND DISCHARGE WILL BE PENDING UNTIL BED BECOMES AVAILABLE. JUSTIN FARAH NOTIFIED OF DISCHARGE DELAY DUE TO PENDING SNF TRANSFER PLACEMENT.
--- NOTE | 2020-06-29 17:09 | NUR ---
Per Edwina in Admissions at [facility], they are not accepting any new patients at this time. No beds available at [facility]. [facility] unable to authorize patient's admission at this time-nurse Manrique made aware.
--- NOTE | 2020-06-29 21:00 | NUR ---
pt c/o leg pain and Dr Prateek limon.
--- NOTE | 2020-06-29 21:05 | NUR ---
Dr Chandra returned page and new orders received for Tramadol 50mg po q 4hrs prn.
[2020-06-29] MEDS ORDERED: traMADol HCL 50 MG TAB PO PRN (21:30)
[2020-06-29 22:15] VITALS: BP 119/69
[2020-06-30 05:25] VITALS: BP 98/56
[2020-06-30] MEDS: PIPERACILLIN-TAZOB 2.25GM 50 ML IV SCH ×3 (06:00→22:39)
--- NOTE | 2020-06-30 07:20 | NUR ---
ASSUMED CARE OF PATIENT RESTING WITH EYES CLOSED. RESPIRATIONS EVEN AND UNLABORED. NO DISTRESS NOTED AT THIS TIME. HOB ELEVATED AT LEAST 30 DEGREES, CALL LIGHT IS WITHIN REACH, SIDE RAILS UP X 2 AND BED LOCKED IN LOWEST POSITION.
[2020-06-30 08:41] VITALS: BP 113/64
[2020-06-30] MEDS: THIAMINE 100mg/ml INJ (200mg/2ml VIAL) IV SCH (09:35)
[2020-06-30] MEDS: PANTOPRAZOLE 40 MG/10 ML VIAL INJ IV SCH (09:36)
[2020-06-30] MEDS: METOPROLOL TARTRATE 25 MG TAB PO SCH ×2 (09:43→22:00)
--- NOTE | 2020-06-30 11:20 | NUR ---
SPOKE WITH MATI JAVASCRIPT ENGINEER REGARDING STATUS OF PATIENT'S BED AT [facility]. MATI VERBALIZED THAT THEY WILL NOT BE ABLE TO ORDER A BARIATRIC BED FOR HER UNTIL TOMORROW.
--- NOTE | 2020-06-30 11:20 | NUR ---
Nutrition Followup Note Wt: 151.5 kg Pt was awake when rounded this morning. Pt with no distress noted, reported her appetite is improving. Pt is with a Pureed diet with inadequate PO of 25% this a.m. per RN doc. Pt reported no difficulty with chewing or swallowing. Encouraged pt to increase her PO intake, pt acknowledged importance of nutrition and agreed to try. Est energy needs IBW 70 [id number] kcal (30-33 kcal/kg IBW) , Est protein needs: 84-98 g (1.2-1.4 g/kg IBW r/t HD) Will reassess per dry body wt. reassessed as pt now on HD LABS: BUN 49 H CREAT 5.5 H, ALB 1.8 L CA 7.6 L GI: Pt had no recorded BM today per RN doc BS: 13 mod risk. Refer to wound assessment report for further details PES: 1) Altered nutrition related lab values r.t current chronic medical condition aeb elev RFT hypocalcemia 2) Inadequate PO intake r/t current mental condition aeb pt`s with ALOC and NPO Comments Will continue to monitor PO status, skin status, pertinent labs and weight trends. Will f/u in 3-5 days 1) Consider renal std along with current diet. 2) Consider prostat 1 packet bid. 3) If pt appetite does not improve consider EN nutrition support Nepro with Carb Steady 1.8 @ 50ml/hr goal rate as tolerated and per MD approval 4) Continue current plan of care
--- NOTE | 2020-06-30 11:25 | NUR ---
I called [facility] [phone] and spoke with Niecy, she said they can take this patient back but that she needs a bariatric bed and they are all being used right now-they can not order another one until tomorrow. I relayed this information to nurse Last.
[2020-06-30 13:00] VITALS: BP 107/53
--- NOTE | 2020-06-30 14:03 | NUR ---
DR KING PAGED REGARDING UPDATE FROM SAND CLEANING MACHINE OPERATOR WELL LATEST POTASSIUM LEVEL. AWAITING CALL BACK. CONTINUE CARE.
--- NOTE | 2020-06-30 14:29 | NUR ---
DR KING CALLED BACK. INSTRUCTIONS RECEIVED TO CALL REAL ESTATE MANAGER JEREL FARAH AND UPDATE HER WELL. CONTINUE CARE.
--- NOTE | 2020-06-30 16:14 | NUR ---
RAKING MACHINE OPERATOR JEREL FARAH CALLED. UPDATED JEREL ON STATUS OF PATIENT'S BARIATRIC BED AT [facility] WELL UPDATED HER ON LATEST LABS FOR THIS PATIENT. NO NEW ORDERS AT THIS TIME. CONTINUE CARE.
[2020-06-30 17:00] VITALS: BP 116/70
--- NOTE | 2020-06-30 18:29 | NUR ---
WALKED DOWN TO PHARMACY REGARDING FAULTY BAG OF CUBICIN. PHARMACIST VERBALIZED THAT THIS WAS THE LAST BAG THAT THEY HAVE AVAILABLE AND WOULD CALL BACK IF THEY FIXED IT. AWAITING CALL BACK.
[2020-06-30] MEDS: DAPTOmycin 500 MG in SODIUM CHL 0.9% 50 ML IV SCH (19:30)
--- NOTE | 2020-06-30 19:30 | NUR ---
ENDORSED CARE TO NOC SHIFT RN
--- NOTE | 2020-06-30 19:45 | NUR ---
Opening Shift Note Assumed care of patient, sleeping at this time. No S/S of distress/SOB or pain. Bed in safety and locked position, call light within reach, will continue to monitor for changes Q1hr and PRN.
[2020-06-30 21:48] VITALS: BP 120/65
[2020-06-30] MEDS: AMIODARONE HCL 200 MG TAB PO SCH (22:00)
--- NOTE | 2020-06-30 22:10 | NUR ---
Attempted to turn patient to her side, patient moaned for pain whenever moved, will attempt later
--- NOTE | 2020-06-30 22:30 | NUR ---
Unable to assess the back of patient because patient refused to be turned at this time, will try later
[2020-07-01 05:12] VITALS: BP 101/57
[2020-07-01] MEDS: PIPERACILLIN-TAZOB 2.25GM 50 ML IV SCH ×3 (06:30→22:49)
[2020-07-01 06:34] LABS: Basophils # (auto) 0.1 10 ^3/uL (0-0.2); Eosinophils # (auto) 0.3 10 ^3/uL (0-0.8); Eosinophils % (auto) 4.4 % (0.0-7.0); Lymphocytes # (auto) 0.9 10 ^3/uL (0.4-5.4); Monocytes # (auto) 0.7 10 ^3/uL (0-1.3); Neutrophils # (auto) 5.7 10 ^3/uL (1.6-8.6); Platelet Count (auto) 136 10^3/uL (140-450); White Blood Cell 7.7 10^3/uL (4.4-10.8)
[2020-07-01 06:37] LABS: Basophils % (auto) 0.8 % (0.0-2.0); Hematocrit 24.7 % (36.0-46.0); Lymphocytes % (auto) 12.1 % (10.0-50.0); Mean Corpuscular Hgb Conc. 32.2 g/dL (32.0-36.0); Mean Corpuscular Volume 99.5 fL (80.0-100.0); Monocytes % (auto) 9.3 % (0.0-12.0); Neutrophils % (auto) 73.4 % (37.0-80.0); Nucleated Red Blood Cells % 0.1 %; Red Blood Cells 2.49 10^6/uL (4.0-5.20); Red Cell Distribution Width 17.4 % (11.8-14.3)
[2020-07-01 06:53] LABS: Potassium 3.3 mmol/L (3.5-5.1)
[2020-07-01 06:58] LABS: BUN/Creatinine Ratio 8.3; Calcium 8.1 mg/dL (8.5-10.1); Magnesium 2.3 mg/dL (1.6-2.6)
--- NOTE | 2020-07-01 07:00 | NUR ---
OPENING SHIFT NOTE RECEIVED REPORT ON THE PATIENT. AWAKE LYING IN BED. PATIENT SHOWS NO SIGNS OF DISTRESS AT THIS TIME. DISCUSSED THE PLAN OF CARE WITH THE PATIENT. BED IN LOWEST POSITION, SIDE RAIL UP X2, AND THE CALL LIGHT IS WITHIN REACH.
--- NOTE | 2020-07-01 08:06 | NUR ---
DR TEJEDA AT BEDSIDE. PER DR TEJEDA "PATIENT IS CLEARED FROM CARDIO STANDPOINT"
[2020-07-01 09:00] VITALS: BP 106/50
[2020-07-01] MEDS ORDERED: POTASSIUM CHL 20 Meq TABLET PO ONE (09:15)
[2020-07-01] MEDS: METOPROLOL TARTRATE 25 MG TAB PO SCH ×2 (09:45→22:50)
[2020-07-01] MEDS: THIAMINE 100mg/ml INJ (200mg/2ml VIAL) IV SCH (09:46)
[2020-07-01] MEDS: PANTOPRAZOLE 40 MG/10 ML VIAL INJ IV SCH (09:46)
[2020-07-01 13:00] VITALS: BP 111/56
[2020-07-01 17:00] VITALS: BP 129/62
[2020-07-01 22:00] VITALS: BP 103/65
[2020-07-01] MEDS: AMIODARONE HCL 200 MG TAB PO SCH (22:52)
--- NOTE | 2020-07-02 04:00 | NUR ---
Pt refuses to turn from side to side. Educated pt on importance of this and risks. Will continue to monitor.
[2020-07-02 05:00] VITALS: BP 119/58
[2020-07-02] MEDS: PIPERACILLIN-TAZOB 2.25GM 50 ML IV SCH ×2 (05:35→14:16)
[2020-07-02 07:42] LABS: Calcium 7.6 mg/dL (8.5-10.1); Potassium 3.6 mmol/L (3.5-5.1)
[2020-07-02 07:47] LABS: BUN/Creatinine Ratio 7.7
[2020-07-02 09:00] VITALS: BP 118/64
[2020-07-02] MEDS: METOPROLOL TARTRATE 25 MG TAB PO SCH (10:19)
[2020-07-02] MEDS: THIAMINE 100mg/ml INJ (200mg/2ml VIAL) IV SCH (10:19)
[2020-07-02] MEDS: PANTOPRAZOLE 40 MG/10 ML VIAL INJ IV SCH (10:19)
[2020-07-02] MEDS ORDERED: SODIUM CHL 0.9% 1000 ML BAG XX ONE (10:45)
--- NOTE | 2020-07-02 10:53 | NUR ---
WOUND CARE NOTE: Wound care in to see patient with the assistance of another nurse, JARETH Rice for reevaluation of wounds and skin integrity monitoring. Patient continue resting in Bariatric air bed in Rm. 278A. Patient is awake, alert and able to verbalize needs. Patient appears to be in no pain using Valentine Estrdaa Faces Pain Scale. She's max assist in turning and repositioning. Her Bebeto score is 13. Unable to do skin/wound assessment due to patient is refusing wound care and turning. Rt forearm noted with 0.5x0.8cm open partial thickness skin tear appears to be from scab that came off. Photograph taken for reference. Bedside nurse covered skin tear with Opti foam dressing. Patient educated regrading skin/wound care but still refused. JARETH cMkeon made aware. RECOMMENDATION:Continuation of all wound care orders MD prescribed. Continue with skin/wound plan of care, continue monitoring by wound care while patient is hospitalized.
--- NOTE | 2020-07-02 11:39 | NUR ---
PATIENT IS REFUSING WOUND CARE AND TURNING AT THIS TIME. EDUCATED PATIENT ON THE IMPORTANCE OF TURNING, BUT SHE STILL REFUSED.
[2020-07-02 13:00] VITALS: BP 120/63
[2020-07-02 17:00] VITALS: BP 166/81
--- NOTE | 2020-07-02 17:08 | NUR ---
SS consult for placement and outpatient dialysis. Pt was previously at [facility] but due to no bed hold, needing a bariatric bed, and her behaviors she cannot return to facility. Additional local facilities contacted but no beds to accommodate pts weight ( 153.3 kg). [facility] and faxed clinical information to Rohit, service coordinator elderly facility. Contacted [facility] ([phone]), [facility] in [place] ([phone]), optometric coordinator and [facility], and faxed all information for outpatient hemodialysis. Pt accepted for TTS schedule that will be changing to [facility] next week and confirmed by Magda. Contacted Rohit, at [facility], and transportation for dialysis will be through [facility] transport. Pt accepted to a bariatric bed at [facility] ([phone]), [address] Chirinos with a pickup time of 1830 by Janes ( [phone])
[2020-07-02 17:12] VITALS: BP 166/84
--- NOTE | 2020-07-02 18:04 | NUR ---
PATIENT REFUSING DISCHARGE WOUND PHOTOS.
--- NOTE | 2020-07-02 18:05 | NUR ---
VALUABLES (A RING) WAS PLACE IN THE PATIENT'S BELONGINGS BAG.
--- NOTE | 2020-07-02 18:54 | NUR ---
CALLED [facility] AND GAVE REPORT TO JARETH SERNA.
[2020-07-02] MEDS: DAPTOmycin 500 MG in SODIUM CHL 0.9% 50 ML IV SCH (19:00)
--- NOTE | 2020-07-02 19:25 | NUR ---
Opening note Assumed care of patient, patient is alert x1. No sob or distress noted at this time. Patient verbalized understanding. Will continue to monitor q1hr and PRN.
[2020-07-02] MEDS ORDERED: EPOETIN ALFA 10,000 UNIT/1 ML VIAL SC ONE (21:00)
--- NOTE | 2020-07-02 22:32 | NUR ---
Patient discharged Patient is discharged. [employer] came to sampler pickup patient, all belongings taken with patient. No sob or distress noted. IV and tele removed.
== END 2020-07-02 22:32 | DRG 91 ==
LOC: EDBD 19:25 → EDUNIT# 19:25 → ER 19:29 → TELE 19:30 → TELE-WESTW 06-17 17:32
PROVIDERS: ADMIT Nurse Practitioner; ATTEND Nurse Practitioner
PROC: 05H633Z Insertion of Infusion Device into Left Subclavian Vein, Percutaneous Approach (ICD-10-PCS; 2020-06-16)
PROC: B547ZZA Ultrasonography of Left Subclavian Vein, Guidance (ICD-10-PCS; 2020-06-16)
PROC: 02HV33Z Insertion of Infusion Device into Superior Vena Cava, Percutaneous Approach (ICD-10-PCS; 2020-06-20)
PROC: B5181ZA Fluoroscopy of Superior Vena Cava using Low Osmolar Contrast, Guidance (ICD-10-PCS; 2020-06-20)
PROC: 5A1D70Z Performance of Urinary Filtration, Intermittent, Less than 6 Hours Per Day (ICD-10-PCS; 2020-06-22)
PROC: 5A1D70Z Performance of Urinary Filtration, Intermittent, Less than 6 Hours Per Day (ICD-10-PCS; 2020-06-23)
PROC: 30233N1 Transfusion of Nonautologous Red Blood Cells into Peripheral Vein, Percutaneous Approach (ICD-10-PCS; 2020-06-23)
PROC: 5A1D70Z Performance of Urinary Filtration, Intermittent, Less than 6 Hours Per Day (ICD-10-PCS; 2020-06-24)
PROC: 0JH63XZ Insertion of Tunneled Vascular Access Device into Chest Subcutaneous Tissue and Fascia, Percutaneous Approach (ICD-10-PCS; principal; 2020-06-26)
PROC: 02H633Z Insertion of Infusion Device into Right Atrium, Percutaneous Approach (ICD-10-PCS; 2020-06-26)
PROC: 5A1D70Z Performance of Urinary Filtration, Intermittent, Less than 6 Hours Per Day (ICD-10-PCS; 2020-06-26)
DX: G92 Toxic encephalopathy (principal); J18.9 Pneumonia, unspecified organism; J96.01 Acute respiratory failure with hypoxia; N17.9 Acute kidney failure, unspecified; N39.0 Urinary tract infection, site not specified; I13.0 Hypertensive heart and chronic kidney disease with heart failure and stage 1 through stage 4 chronic kidney disease, or unspecified chronic kidney disease; E87.2 Acidosis; Z68.43 Body mass index [BMI] 50.0-59.9, adult; J98.11 Atelectasis; Z20.828 Contact with and (suspected) exposure to other viral communicable diseases; K72.90 Hepatic failure, unspecified without coma; E66.01 Morbid (severe) obesity due to excess calories; B19.20 Unspecified viral hepatitis C without hepatic coma; D63.8 Anemia in other chronic diseases classified elsewhere; K80.20 Calculus of gallbladder without cholecystitis without obstruction; E11.9 Type 2 diabetes mellitus without complications; K70.30 Alcoholic cirrhosis of liver without ascites; N18.32 Chronic kidney disease, stage 3b; I48.91 Unspecified atrial fibrillation; E11.22 Type 2 diabetes mellitus with diabetic chronic kidney disease; E11.42 Type 2 diabetes mellitus with diabetic polyneuropathy; E87.5 Hyperkalemia; E87.6 Hypokalemia; F10.20 Alcohol dependence, uncomplicated; F17.200 Nicotine dependence, unspecified, uncomplicated; F41.9 Anxiety disorder, unspecified; I25.10 Atherosclerotic heart disease of native coronary artery without angina pectoris; I27.21 Secondary pulmonary arterial hypertension; I48.0 Paroxysmal atrial fibrillation; I50.9 Heart failure, unspecified; I77.810 Thoracic aortic ectasia; F32.9 Major depressive disorder, single episode, unspecified; M19.90 Unspecified osteoarthritis, unspecified site; I95.9 Hypotension, unspecified; K43.9 Ventral hernia without obstruction or gangrene; K57.90 Diverticulosis of intestine, part unspecified, without perforation or abscess without bleeding; M43.12 Spondylolisthesis, cervical region; Z79.01 Long term (current) use of anticoagulants; Z79.899 Other long term (current) drug therapy; Z82.3 Family history of stroke; Z86.19 Personal history of other infectious and parasitic diseases; Z86.73 Personal history of transient ischemic attack (TIA), and cerebral infarction without residual deficits; Z92.21 Personal history of antineoplastic chemotherapy; Z98.84 Bariatric surgery status; Z79.891 Long term (current) use of opiate analgesic; Z88.1 Allergy status to other antibiotic agents
CPT/HCPCS: 36415; 70450; 71045; 71250; 74176; 76937; 80048; 80053; 80074; 80076; 80320; 81001; 82140; 82270; 82570; 82607; 82746; 83605; 83690; 83735; 83880; 84156; 84484; 85007; 85025; 85027; 85610; 85730; 86850; 86900; 86901; 86920; 87040; 87086; 87088; 87186; 87426; 90935; 92610; 93005; 93306; 96365; 96366; 96367; 96375; 96376; 97110; 97163; 99152; 99153; 99291; C9113; G0378; J0885; J1642; J2250; J2543; J3480; J7060